=== PATIENT | female | born 1970 | race Caucasian/White ===

== ENCOUNTER → 2020-06-27 11:52 | Outpatient (CLI) | payer BC, SELFPAY ==
--- NOTE | 2020-06-27 12:02 | XR_ITS ---
PROCEDURE: XR SCOLIOSIS SURVEY CLINICAL INDICATION: SCOLIOSIS COMPARISON: No exams were available for comparison FINDINGS: There is a mid to lower thoracic scoliosis convex right measuring 15 degrees by the Hopper technique. There is minimal lumbar curvature convex left measuring five degrees by the Hopper technique. No congenital anomalies evident. IMPRESSION: Mild thoracolumbar scoliosis as described above Dictated by: Marlon Perry MD 06/27/2020 17:08 Marlon Perry MD in [place] 06/27/2020 17:08
== END ==
PROVIDERS: PCP Family Medicine; Visit Provider Nurse Practitioner Family
DX: M41.20 Other idiopathic scoliosis, site unspecified (principal)
CPT/HCPCS: 72081

== ENCOUNTER → 2022-03-02 09:43 | Outpatient (CLI) | payer BC, SELFPAY ==
[2022-03-02 11:08] LABS: Thyroid Stimulating Hormone 2.69 uIU/mL (0.465-4.68)
[2022-03-03 13:10] LABS: FSH 6.6 mIU/mL (.); Prolactin 10.3 ng/mL (4.8-23.3); Testosterone,Total 3 ng/dL (4-50)
[2022-03-09 18:09] LABS: 1,25 Dihydroxy Vitamin D 31 pg/mL (.); 1,25-Dihydroxy, Vitamin D-2 <10 pg/mL (.); 1,25-Dihydroxy, Vitamin D-3 31 pg/mL (.)
== END ==
PROVIDERS: PCP Family Medicine; Visit Provider Obstetrics & Gynecology
DX: N95.1 Menopausal and female climacteric states (principal)
CPT/HCPCS: 36415; 82652; 82670; 83001; 84146; 84403; 84443

== ENCOUNTER 2025-03-11 09:05 | Outpatient (CLI) | payer BC, SELFPAY ==
--- OUTSIDE RECORDS SUMMARY | 2025-03-11 09:22 | XMS_ITS | Encounter Summary ---
Author Organization [employer] Address [address] [place] [address] Care Team Providers Care Algebra Teacher Name Role Phone Unavailable Primary Care Provider Unavailabl e Encounter Details Date Type Department Care Team (Late st Contact Info) Description 04/29/2021 Transcribed Document [facility] [place] Family Medicine [facility] [place] [address] ProviderLatisha MD [address] [place] [address] Social History Tobacco Use Types Packs/Day Years Used Date Smoking Tobacco: Never Assessed Comments Unknown Sex and Gender Information Value Date Recorded Sex Assigned at Not on file Legal Sex Female 5:30 PM CDT Gender Identity Not on file Sexual Orientation Not on file documented as of this encounter Miscellaneous Notes * Cerner Conversion Note - Latisha ProviderMD - 04/29/2021 11:08 AM CDT Pain Assessment Entered On: 04/29/2021 13:07 EDT Performed On: 04/29/2021 12:31 EDT by MICHAEL BENNETT RN Intervention Information: acetaminophen Performed by AP BLACKWELL RN on 04/29/2021 11:31:00 EDT acetaminophen,650mg Oral Pain Assessment Pain Assessment : Follow-up assessment Pain Scale Goal : 5 Pain Scale Used : 0-10 Scale Location : Back, lower, Eye, left Pain Improved by Intervention : Yes MICHAEL BENNETT RN - 04/29/2021 13:07 EDT Pain Scale Intensity : 6 MICHAEL BENNETT RN - 04/29/2021 13:07 EDT Image 4 - Images currently included in the form version of this document have not been included in the text rendition version of the form. documented in this encounter Plan of Treatment Not on file documented as of this encounter Visit Diagnoses Not on filedocumented in this encounter
--- OUTSIDE RECORDS SUMMARY | 2025-03-11 09:22 | XMS_ITS | Encounter Summary ---
Author Organization [employer] Address [address] [place] [address] Care Team Providers Care Applications Sales Consultant Name Role Phone Unavailable Primary Care Provider Unavailabl e Encounter Details Date Type Department Care Team (Late st Contact Info) Description 04/29/2021 Transcribed Document [facility] [place] Family Medicine [facility] [place] [address] ProviderLatisha MD [address] [place] [address] Social History Tobacco Use Types Packs/Day Years Used Date Smoking Tobacco: Never Assessed Comments Unknown Sex and Gender Information Value Date Recorded Sex Assigned at Not on file Legal Sex Female 5:30 PM CDT Gender Identity Not on file Sexual Orientation Not on file documented as of this encounter Miscellaneous Notes * Cerner Conversion Note - Latisha ProviderMD - 04/29/2021 6:47 AM CDT Admission History, Adult Entered On: 04/29/2021 12:50 EDT Performed On: 04/29/2021 6:47 EDT by MARIANNE ALFONSO RN Advance Directive Patient has Advance Directive *Q : No, patient refuses Advance Directive information MARIANNE ALFONSO RN - 04/29/2021 12:46 EDT Anesthesia/Transfusion History Family History of Anesthesia Reaction : No prior transfusion(s) Blood Transfusion Acceptable to Patient : Yes Transfusion History : Prior anesthesia without reaction Family History of Anesthesia Reaction : None Anesthesia History Comment : Dysphagia MARIANNE ALFONSO RN - 04/29/2021 12:46 EDT Anticipated Discharge Needs Discharge To, Anticipated : Home Anticipated Discharge Needs at This Time : Outpatient follow-up, Physical Therapy MARIANNE ALFONSO RN - 04/29/2021 12:46 EDT Education Topics, Admission Orientation DCP GENERIC CODE Assessment/Vital Signs : Verbalizes understanding Bed Control : Verbalizes understanding Call Light : Verbalizes understanding Confidentiality : Verbalizes understanding Diet/Room Service : Verbalizes understanding Fall Prevention : Verbalizes understanding Orientation to Room/Bathroom : Verbalizes understanding Rounding : Verbalizes understanding Siderails use/risks : Verbalizes understanding Television/Phone : Verbalizes understanding MARIANNE ALFONSO RN - 04/29/2021 12:46 EDT Functional Assessment Living Situation : Home Patient Lives With : Spouse Persons Assisting Patient at Home : Unknown Mobility Assistance Prior to Admission : Independent QUIÑONEZ Hx Falls Immediate/Within 3 Months : No Current Home Treatments : None MARIANNE ALFONSO RN - 04/29/2021 12:46 EDT General Info Legal Guardian : Spouse Support Person/Patient Pedicurist : Yes Support Person/Pt Rep Name : Hector Bernardo - Support Person/Pt Rep Contact Information : [phone] Want Family/Rep/Phys Notified of Admit : No Emergency Contact #1 : Hector Bernardo Emergency Contact #1 Emergency Contact #1 Relationship : Emergency Contact #2 : ` Emergency Contact #2 Phone Number : ` Emergency Contact #2 Relationship : ` Information Obtained From : Patient Primary Language : Central African Communication Barrier : None Detail Supervisor Needed : No MARIANNE ALFONSO RN - 04/29/2021 12:46 EDT Fall Risk Scales ABCs Fall Injury Risk Identification : Surgery ABC Fall Injury Risk : Moderate to high injury risk Injury Moderate to High Risk Interventions : High Risk for Fall Injury sign in place per policy QUIÑONEZ Hx Falls Immediate/Within 3 Months : No Quiñonez Secondary Diagnosis : Yes QUIÑONEZ Use of Ambulatory Aid : Bed rest/Nurse assist QUIÑONEZ IV Therapy or IV Access : Yes Quiñonez Gait/Transferring : Weak Quiñonez Mental Status : Oriented to own ability Quiñonez Fall Risk Score : 45 QUIÑONEZ Fall Scale Risk Level : 25-45 Medium Risk [place] Fall Interventions : Adequate lighting, Assistive devices within reach, Bed in low position, Call device within reach, Frequent orientation to call device, Frequent orientation to surroundings, Hourly comfort/safety rounds, Non-slip footwear, Personal items within reach, Reinforced to call for assistance before getting out of bed, Room free of clutter/spills, Upper side-rails up, Wheels locked, Wires/Cords secured Fall Moderate to High Risk Interventions : High Risk for Fall sign in place per policy Fall Risk Scale Calc Temp : 1 MARIANNE ALFONSO RN - 04/29/2021 12:46 EDT Health Histories Smoking Status : Former smoker, quit more than 30 days ago Smokeless Tobacco Status : Never Implant/Device Type, Charge Auditor and Model : hardware in neck MARIANNE ALFONSO RN - 04/29/2021 12:46 EDT Social History (As Of: 04/29/2021 12:50:12 EDT) Tobacco: Former smoker, quit more than 30 days ago Smoking Status. Never Smokeless Tobacco Status. None Smokeless Tobacco Use History. Last Used: quit about 15 years ago . Second Hand Smoke Exposure: No. (Last Updated: 04/24/2021 15:30:11 EDT by Charanjit Brandt Rn) Alcohol: Alcohol Use History Yes. Use in Last 12 Months: Yes. Alcohol Use Comment maybe three times a year . (Last Updated: 04/24/2021 15:30:11 EDT by Charanjit Brandt Rn) Substance Abuse: Drug Use Hx: No. Use in Last 12 Months: No. (Last Updated: 04/24/2021 15:30:11 EDT by Charanjit Brandt Rn) Height and Weight, Clinical Dosing Height Source : Measured Height Entry Format : [place] Height, Feet : 5 ft(Converted to: 152 cm, 60 Inch) Height, Inches : 6 Inch(Converted to: 0 ft 6 Inch, 15.24 cm) Clinical Height : 167.64 cm Weight Source : Standing scale Weight Entry Format : [place] Clinical Dosing Weight : 79.09 kg Weight, Pounds : 174 lb Body Surface Area (BSA) : 1.89 m2 Body Mass Index : 28.1 kg/m2 (HI) [place] Body Weight : 59 kg MARIANNE ALFONSO RN - 04/29/2021 12:46 EDT Infectious Disease History Has the patient ever been tested for COVID-19? : No, Screening today for COVID-19 Date of COVID-19 test known? : Yes Date of COVID-19 Test : 04/27/2021 EDT Does patient have symptoms of COVID-19? : No COVID19 Screening : No Experiencing Infectious Disease Symptoms : No symptoms Physical contact outside [place] in the last 30 days : No Infectious Disease History : Chicken pox/Shingles, MRSA Tuberculosis Symptoms : None MARIANNE ALFONSO RN - 04/29/2021 12:46 EDT Tetanus Immunization Status Previous Tetanus Immunizations : No qualifying data available. Tetanus Immunization : Greater than 5 years MARIANNE ALFONSO RN - 04/29/2021 12:46 EDT Influenza Vaccine Asmt, Adult Previous Vaccines from Immunization Schedule : No qualifying data available. Influenza Immunization, Current Season : Outside of influenza season MARIANNE ALFONSO RN - 04/29/2021 12:46 EDT Pneumococcal Vaccine Previous Vaccines from Immunization Schedule : No qualifying data available. Pneumonia Immunization Received : No Pneumococcal Risk Assessment < Age 65 : None MARIANNE ALFONSO RN - 04/29/2021 12:46 EDT Order Details Transport Mode Order Detail : Wheelchair Isolation Precautions Order Detail : Standard Precautions Order Detail : 0 IV Order Detail : 1 Oxygen Order Detail : 0 Nurse Collect Order Detail : 0 Lift/Transfer : Moderate assist Central Line Order Detail : No Room Service : Appropriate Arterial Line : No Patient Needs Meds Crushed/Liquid : No MARIANNE ALFONSO RN - 04/29/2021 12:46 EDT Nutrition History Feeding Ability : Independent Adaptive Feeding Equipment : Other: No seeds, nuts or hulls Oral Medication Administration : By mouth Eating Poorly Due to Decreased Appetite : No Unplanned Weight Loss in Past 3-6 Months : No Malnutrition Screening Tool Total(mal) : 0 Malnutrition Screening Tool Risk Level : Patient not at risk MARIANNE ALFONSO RN - 04/29/2021 12:46 EDT [place] Suicide Severity Rating Scale (C-SSRS) CSSRS Past Month Wish to be : No CSSRS Past Month Suicidal Thoughts : No CSSRS Lifetime Suicide Behavior : No Suicide Severity Rating Score : 0 Suicide Severity Rating : No Additional Care Required at this time MARIANNE ALFONSO RN - 04/29/2021 12:46 EDT Psychosocial History Currently in Unsafe Situation : No MARIANNE ALFONSO RN - 04/29/2021 12:46 EDT Sleep Apnea Risk Assmt Hx of Obstructive Sleep Apnea Diagnosis : No Snore Loudly : No Tired, Fatigued, or Sleepy During Day : Yes Observed Stopping Breathing During Sleep : No Have/Are Being Treated for Hypertension : No BMI Greater Than 35 kg/m2 : No Age over 50 Years Old : No Neck Circumference Greater Than 40 cm : No Gender Male : No STOP-BANG Sleep Apnea Risk Level Score : 1 MARIANNE ALFONSO RN - 04/29/2021 12:46 EDT Spiritual/Cultural Needs Any Spiritual/Cultural Needs or Requests : Yes Spiritual/Cultural Needs Comment : 04/29 Jew Preference : Faith Spiritual/Cultural Needs Comment : 04/29 MARIANNE ALFONSO RN - 04/29/2021 12:46 EDT Valuables and Belongings Valuables and Belongings : Clothing, Personal devices, Personal items Clothing : Common streetwear Clothing Disposition : With patient Personal Device Disposition : With patient Personal Devices : Dentures, upper Personal Items : Cell phone Personal Items Disposition : With patient MARIANNE ALFONSO RN - 04/29/2021 12:46 EDT documented in this encounter Plan of Treatment Not on file documented as of this encounter Visit Diagnoses Not on filedocumented in this encounter
--- OUTSIDE RECORDS SUMMARY | 2025-03-11 09:22 | XMS_ITS | Encounter Summary ---
Author Organization [employer] Address [address] [place] [address] Care Team Providers Care Conservation Technician Name Role Phone Unavailable Primary Care Provider Unavailabl e Encounter Details Date Type Department Care Team (Late st Contact Info) Description 04/30/2021 Transcribed Document [facility] Radiology [address] [place] [address] Jancie Pan MD [address] [address] Social History Tobacco Use Types Packs/Day Years Used Date Smoking Tobacco: Never Assessed Comments Unknown Sex and Gender Information Value Date Recorded Sex Assigned at Not on file Legal Sex Female 5:30 PM CDT Gender Identity Not on file Sexual Orientation Not on file documented as of this encounter Miscellaneous Notes * Cerner Conversion Note - Janice Pan MD - 04/30/2021 10:08 AM EDT Patient: ESTER GALVAN Age: 51 years Sex: Female : 1970 Associated Diagnoses: None Author: FRANCESCA FUENTES PA-FAM CC: postop medical management S: pt states that she had fever last night. But there is not one documented on the monitor and nsg is unaware of any fevers. Pt has at most had 99.6. per the monitor. Using incentive spirometer. Denies any f/c/s. Some nausea. No vomiting or sputum. No cough or sputum. +flatus. urinating ok. HPI: 51 YO female with spinal stenosis who presented to [facility] for lumbar fusion by Dr. Clemons. Pt has failed outpt conservative therapy and elected for surgical intervention. We are asked to follow for postop medical management. Initial visit on floor --- Denies prior stroke or seizure. Denies IL, CHF or cardiac arrhythmia. Denies DM. Denies COPD or [place]. Denies DVT or PE. Denies h/o cancer. Denies any bladder issues. +anxiety, arthritis. Has hx of asthma, last had to use inhaler 3 weeks ago after working in the yard. Has GERD and UC colitis issues. Recently had perianal wound and was treated with oral abx and is now better. She is having some pain and irritation with left eye at this time PMHx: Active Problems (8) Anxiety Arthritis Asthma Back pain Migraine PFO (patent foramen ovale) Scoliosis Ulcerative colitis PSHx: Tubal ligation ([id number]). Cholecystectomy ([id number]). uterine ablation. neck surgery FHx: Mother - CVA, pancreatic cancer Father - tetrology of Fallot Siblings - sister with Hashimotos SHx: No alcohol, tob or illicit drug use. Home Medications (17) Active acetaminophen-HYDROcodone 325 mg-10 mg oral tablet albuterol CFC free 90 mcg/inh inhalation aerosol with adapter ALPRAZolam 0.25 mg oral tablet 0.25 mg = 1 Tab, PRN, Oral, TID balsalazide 750 mg oral capsule 3,750 mg = 5 Cap, Oral, QAM balsalazide 750 mg oral capsule 3,000 mg = 4 Cap, Oral, At Bedtime Bentyl 20 mg, PRN, Oral, QID bisoprolol 5 mg oral tablet 2.5 mg = 0.5 Tab, Oral, Daily Calcium, Magnesium and Zinc oral tablet 1 Tab, Oral, Daily clopidogrel 75 mg oral tablet 75 mg = 1 Tab, Oral, Daily Dulcolax Stool Softener 100 mg, PRN, Oral, BID EPINEPHrine 0.3 mg injectable kit gabapentin 100 mg oral capsule [place] 10 mg-325 mg oral tablet 1 Tab, PRN, Oral, Q6H [place] 7.5 mg-325 mg oral tablet 1 Tab, PRN, Oral, Q4H PriLOSEC 20 mg, Oral, BID Robaxin 500 mg oral tablet 500 mg = 1 Tab, PRN, Oral, QID Vitamin C 1,000 mg, Oral, Daily Allergies (9) Active Reaction Advil Anaphylaxis Bee Stings Anaphylaxis NSAIDs Anaphylaxis Flagyl Lip Swelling morphine Nausea and vomiting Peanuts Joint pain Seafood Joint swelling Strawberries Sinus drainage Tequin Migraine PE: Vitals Signs (last 24 hrs) Last Charted Minimum Maximum Temp 98.2 (APR 30 05:03) 97.7 (APR 29 12:23) 99.5 (APR 29 10:45) Mon HR 95 (APR 30 05:03) 60 (APR 29 11:30) 102 (APR 29 18:00) Resp Rate 16 (APR 30 05:03) 14 (APR 29 10:45) 20 (APR 29 11:10) SBP 94 (APR 30 05:03) 94 (APR 30 05:03) 132 (APR 29 10:50) DBP L 56 (APR 30 05:03) L 55 (APR 29 11:10) 87 (APR 29 10:50) MAP 69 (APR 30 05:03) 69 (APR 30 05:03) 99 (APR 29 10:50) SpO2 100 (APR 30 05:03) L 92 (APR 30 00:25) 100 (APR 29 10:45) GEN: Alert, awake, NAD; sitting up in chair. Does appear to be hurting. CV: S1S2, no murmur. No LE edema Resp: CTAB, NL Abd: Soft, NT, ND +BS Skin: no rashes on inspection and palpation. Ext: No LE edema. No joint edema, erythema. Neuro: A&O x 3 Data: Labs (Last four charted values) WBC 10.0 (APR 30) 6.7 (APR 27) HB L 11.1 (APR 30) 12.6 (APR 27) HCT 35.2 (APR 30) 38.9 (APR 27) Plt 210 (APR 30) 240 (APR 27) Na 136 (APR 30) 137 (APR 27) K 4.2 (APR 30) 4.3 (APR 27) Cl 105 (APR 30) 105 (APR 27) CO2 26 (APR 30) 28 (APR 27) BUN 9 (APR 30) 10 (APR 27) Cr 0.80 (APR 30) 0.90 (APR 27) Glu R 101 (APR 30) 100 (APR 27) Ca 9.0 (APR 30) 9.2 (APR 27) ECHO --- 2018 -- EF 60% Assessment: spondylolisthesis s/p lumbar fusion left eye pain, likely corneal abrasion UC GERD asthma Plan: tetracaine ophth solution -- erythromycin ophth oint x 3 days Monitor BP; add PRN's, hold parameters bowel regimen incentive spirometer PT/OT DVT prophylaxis noted Pain management deferred to surgeon will monitor hb/hct daily for signs of ongoing acute blood loss will monitor bun/cr daily for signs of dehydration, prerenal azotemia will monitor for signs/symptoms of post-op wound infection or hospital acquired infectious process resume outpatient medication regimen for comorbidities Assessment and treatment plan made in conjunction with James Pan MD documented in this encounter Plan of Treatment Not on file documented as of this encounter Visit Diagnoses Not on filedocumented in this encounter
--- OUTSIDE RECORDS SUMMARY | 2025-03-11 09:22 | XMS_ITS | Encounter Summary ---
Author Organization [employer] Address [address] [place] [address] Care Team Providers Care Excavation Laborer Name Role Phone Unavailable Primary Care Provider Unavailabl e Encounter Details Date Type Department Care Team (Late st Contact Info) Description 04/29/2021 Transcribed Document [facility] [place] Family Medicine [facility] [place] [address] ProviderLatisha MD [address] [place] [address] Social History Tobacco Use Types Packs/Day Years Used Date Smoking Tobacco: Never Assessed Comments Unknown Sex and Gender Information Value Date Recorded Sex Assigned at Not on file Legal Sex Female 5:30 PM CDT Gender Identity Not on file Sexual Orientation Not on file documented as of this encounter Miscellaneous Notes * Cerner Conversion Note - Latisha ProviderMD - 04/29/2021 3:48 PM CDT Treatment Intervention, OT Entered On: 04/30/2021 15:01 EDT Performed On: 04/30/2021 9:38 EDT by KIM STEPHENS OTR/Michelle General Information, OT Visit Type, OT : Treatment Note Patient Orders : Order Date Order Ordering 04/29/2021 11:04 Occupational Therapy Evaluation and Treatme Ordered By: JAMI ISLAS MD-SNU 04/29/2021 15:48 OT Additional Treatment Ordered By: Active Diagnoses : No Qualifying Diagnoses Therapy Diagnosis, OT : decreased independence with ADLs due to weakness Admission Date : 04/29/2021 06:48 Co-treated by, OT : Physical Therapist Personal Devices : Personal Devices Dentures, upper Assistive Devices : Assistive Devices No Devices Recorded KIM STEPHENS OTR/Michelle - 04/30/2021 14:59 EDT General Status Patient Received Status : Up in chair Treatment Start Time : 04/30/2021 9:00 EDT Patient Left Status : Up in chair, RN/PCT informed, Family/Visitors at bedside, All needs met and within reach Treatment End Time : 04/30/2021 9:32 EDT Treatment Time : 32 Minute(s) KIM STEPHENS OTR/L - 04/30/2021 14:59 EDT Self Care/Home Management, OT Upper Body Dressing Assist Level, OT : Supervision or set-up Lower Body Dressing Assist Level, OT : Supervision or set-up KIM STEPHENS OTR/L - 04/30/2021 14:59 EDT Functional Mobility Mobility Grid Sit to Stand : Supervision/set-up Bed to Chair : Supervision/set-up Stand to Sit : Supervision/set-up KIM STEPHENS OTR/Michelle - 04/30/2021 14:59 EDT Plan of Care, OT OT Tx Plan/Goals Established w Patient : Yes KIM STEPHENS OTR/L - 04/30/2021 14:59 EDT Fci Goals, OT Grooming LTG Grid Goal #1 Activity : Grooming Assist : Independent, modified Date to Meet : 05/13/2021 EDT Goal Status : Initial goal KIM STEPHENS OTR/L - 04/30/2021 14:59 EDT Bathing LTG Grid Goal #1 Activity : Bathing Assist : Independent, modified Date to Meet : 05/13/2021 EDT Goal Status : Initial goal KIM STEPHENS OTR/L - 04/30/2021 14:59 EDT Dressing, Lower Body LTG Grid Goal #1 Activity : Dressing, Lower Body Assist : Independent, modified Date to Meet : 05/13/2021 EDT Goal Status : Initial goal KIM STEPHENS OTR/L - 04/30/2021 14:59 EDT Toileting LTG Grid Goal #1 Activity : Toileting Assist : Independent, modified Date to Meet : 05/13/2021 EDT Goal Status : Initial goal KIM STEPHENS OTR/L - 04/30/2021 14:59 EDT Toilet Transfer LTG Grid Goal #1 Activity : Toilet Transfer, Ambulatory Assist : Independent, modified Date to Meet : 05/13/2021 EDT Goal Status : Initial goal KIM STEPHENS OTR/Michelle - 04/30/2021 14:59 EDT Bed Mobility/ Bed Transfer LTG Grid Goal #1 Activity : Bed Mobility/Bed Transfer Assist : Independent, modified Date to Meet : 05/13/2021 EDT Goal Status : Initial goal KIM STEPHENS OTR/L - 04/30/2021 14:59 EDT Treatment Note Subjective Comment : Pt agreeable Patient's Response to Treatment : Pt tolerated tx well Additional Objective Information : Pt sitting in chair upon arrival. Pt completed UB and LB dressing with SBA using AE, pt verbalized understanding of use. Pt ambulated in room and hallway with SBA using RWx. Pt returned to room, left with needs met and CL in reach. Assessment : Pt progressing Plan for Treatment : Cont OT POC KIM STEPHENS OTR/L - 04/30/2021 14:59 EDT Pain Assessment Pain Score Pre-Intervention : 0 KIM STEPHENS OTR/L - 04/30/2021 14:59 EDT Image 1 - Images currently included in the form version of this document have not been included in the text rendition version of the form. [facility] OT Charges OT Selfcare/Hm Mgmt Ea 15 Min : 1 OT Ther Activities Ea 15 Min : 1 KIM STEPHENS OTR/L - 04/30/2021 14:59 EDT Electronically signed by Brendon Givens Conversion Communications Superintendent Cerner at 01/04/2023 12:57 PM CDT documented in this encounter Plan of Treatment Not on file documented as of this encounter Visit Diagnoses Not on filedocumented in this encounter
--- OUTSIDE RECORDS SUMMARY | 2025-03-11 09:22 | XMS_ITS | Referral Summary ---
Author Organization [employer] Address [address] [place], [place] [id number] Care Team Providers Care Fender Mechanic Apprentice Name Role Phone Unavailable Primary Care Provider Unavailabl e Social History Tobacco Use Types Packs/Day Years Used Date Smoking Tobacco: Never Assessed Comments Unknown Sex and Gender Information Value Date Recorded Sex Assigned at Not on file Legal Sex Female 5:30 PM CDT Gender Identity Not on file Sexual Orientation Not on file Plan of Treatment Not on file
--- OUTSIDE RECORDS SUMMARY | 2025-03-11 09:22 | XMS_ITS | Encounter Summary ---
Author Organization [employer] Address [address] [place] [address] Care Team Providers Care Insurance Account Specialist Name Role Phone Unavailable Primary Care Provider Unavailabl e Encounter Details Date Type Department Care Team (Late st Contact Info) Description 04/29/2021 Transcribed Document [facility] [place] Family Medicine [address] [place] [address] ProviderLatisha MD [address] [place] [address] Social History Tobacco Use Types Packs/Day Years Used Date Smoking Tobacco: Never Assessed Comments Unknown Sex and Gender Information Value Date Recorded Sex Assigned at Not on file Legal Sex Female 5:30 PM CDT Gender Identity Not on file Sexual Orientation Not on file documented as of this encounter Miscellaneous Notes * Cerner Conversion Note - Historical ProviderMD - 04/29/2021 5:00 PM CDT Chart Check - Review Order Profile Entered On: 04/29/2021 17:17 EDT Performed On: 04/29/2021 17:00 EDT by MICHAEL BENNETT RN Chart Check [employer] Initiated/Discontinued as Appropriate : Not applicable All Active Orders Reviewed : Yes MICHAEL BENNETT RN - 04/29/2021 17:17 EDT documented in this encounter Plan of Treatment Not on file documented as of this encounter Visit Diagnoses Not on filedocumented in this encounter
--- OUTSIDE RECORDS SUMMARY | 2025-03-11 09:22 | XMS_ITS | Encounter Summary ---
Author Organization [employer] [facility] Address [address] [place] [id number] Care Team Providers Care Human Resources Mgr Name Role Phone Unavailable Primary Care Provider Unavailabl e Encounter Details Date Type Department Care Team (Late st Contact Info) Description 04/30/2021 Transcribed Document [facility] [place] Family Medicine [address] [place] [address] ProviderLatisha MD [address] [place] [address] Social History Tobacco Use Types Packs/Day Years Used Date Smoking Tobacco: Never Assessed Comments Unknown Sex and Gender Information Value Date Recorded Sex Assigned at Not on file Legal Sex Female 5:30 PM CDT Gender Identity Not on file Sexual Orientation Not on file documented as of this encounter Miscellaneous Notes * Cerner Conversion Note - Latisha ProviderMD - 04/30/2021 9:06 AM CDT Stroke/Warfarin Instructions Entered On: 04/30/2021 9:06 EDT Performed On: 04/30/2021 9:06 EDT by MICHAEL BENNETT RN Stroke/Warfarin Instructions Stroke/TIA Discharge Ins : N/A Warfarin Discharge Ins : N/A MICHAEL BENNETT RN - 04/30/2021 9:06 EDT documented in this encounter Plan of Treatment Not on file documented as of this encounter Visit Diagnoses Not on filedocumented in this encounter
--- OUTSIDE RECORDS SUMMARY | 2025-03-11 09:22 | XMS_ITS | Encounter Summary ---
Author Organization [employer] [facility] Address [address] [place] [address] Care Team Providers Care Workers Compensation Paralegal Name Role Phone Unavailable Primary Care Provider Unavailabl e Encounter Details Date Type Department Care Team (Late st Contact Info) Description 04/30/2021 Transcribed Document [facility] [place] Family Medicine Count includes the [facility] [address] ProviderLatisha MD [address] [place] [address] Social History Tobacco Use Types Packs/Day Years Used Date Smoking Tobacco: Never Assessed Comments Unknown Sex and Gender Information Value Date Recorded Sex Assigned at Not on file Legal Sex Female 5:30 PM CDT Gender Identity Not on file Sexual Orientation Not on file documented as of this encounter Miscellaneous Notes * Cerner Conversion Note - Latisha Daugherty MD - 04/30/2021 9:07 AM CDT Patient Education Materials Follows: Laminectomy, Care After This sheet gives you information about how to care for yourself after your procedure. Your health care provider may also give you more specific instructions. If you have problems or questions, contact your health care provider. What can I expect after the procedure? After the procedure, it is common to have: ??? Some pain around your incision area. ??? Muscle tightening (spasms) across the back. Follow these instructions at home: Medicines ??? Take oqwr-htf-vsbvqxo and prescription medicines only as told by your health care provider. ??? If you were prescribed an antibiotic medicine, use it as told by your health care provider. Do not stop using the antibiotic even if you start to feel better. ??? If you are taking blood thinners: ? Talk with your health care provider before you take any medicines that contain aspirin or NSAIDs, such as ibuprofen. These medicines increase your risk for dangerous bleeding. ? Take your medicine exactly as told, at the same time every day. ? Avoid activities that could cause injury or bruising, and follow instructions about how to prevent falls. ? Wear a medical alert bracelet or carry a card that lists what medicines you take. ??? Ask your health care provider if the medicine prescribed to you: ? Requires you to avoid driving or using heavy machinery. ? Can cause constipation. You may need to take these actions to prevent or treat constipation: ? Drink enough fluid to keep your urine pale yellow. ? Take ztib-beq-lspgpwm or prescription medicines. ? Eat foods that are high in fiber, such as beans, whole grains, and fresh fruits and vegetables. ? Limit foods that are high in fat and processed sugars, such as fried or sweet foods. ? Do not drink alcohol if you are taking prescription pain medicine. Incision care ??? Follow instructions from your health care provider about how to take care of your incision area. Make sure you: ? Wash your hands with soap and water before and after you apply medicine to the area or change your bandage (dressing). If soap and water are not available, use hand geothermal sheet metal worker. ? Change your dressing as told by your health care provider. ? Leave stitches (sutures), skin glue, or adhesive strips in place. These skin closures may need to stay in place for 2 weeks or longer. If adhesive strip edges start to loosen and curl up, you may trim the loose edges. Do not remove adhesive strips completely unless your health care provider tells you to do that. ??? Check your incision area every day for signs of infection. Check for: ? More redness, swelling, or pain. ? Fluid or blood. ? Warmth. ? Pus or a bad smell. Activity ??? Rest as told by your health care provider. ??? Avoid bending or twisting at your waist. Always bend at your knees. ??? Avoid sitting for a long time without moving. Get up to take short walks every 1?2 hours. This is important to improve blood flow and breathing. Ask for help if you feel weak or unsteady. ??? Do not lift anything that is heavier than 10 lb (4.5 kg) or the limit that your health care provider tells you, until he or she says that it is safe. ??? Do exercises as told by your health care provider, including breathing exercises. ??? Return to your normal activities as told by your health care provider. Ask your health care provider what activities are safe for you. General instructions ??? Do not drive for 2 weeks after your procedure or for as long as told by your health care provider. ??? Do not take baths, swim, or use a hot tub for 2 weeks, or until your incision has healed completely. Ask your health care provider if you may take showers after your dressing has been removed. You may only be allowed to take sponge baths. ??? Do not use any products that contain nicotine or tobacco, such as cigarettes, e-cigarettes, and chewing tobacco. These can delay bone healing after surgery. If you need help quitting, ask your health care provider. ??? Wear compression stockings as told by your health care provider. These stockings help to prevent blood clots and reduce swelling in your legs. ??? Keep all follow-up visits as told by your health care provider. This is important. Contact a health care provider if: ??? You have more redness, swelling, or pain around your incision area. ??? Your incision feels warm to the touch. ??? You are not able to return to activities or do exercises as told by your health care provider. Get help right away if you: ??? Have any of these signs of infection: ? Fluid or blood coming from your incision area. ? Pus or a bad smell coming from your incision area. ? Chills or a fever. ??? Feel dizzy or you faint while standing. ??? Develop a rash. ??? Develop shortness of breath or you have difficulty breathing. ??? Cannot control when you urinate or have a bowel movement. ??? Become weak. ??? Are not able to use your legs. These symptoms may represent a serious problem that is an emergency. Do not wait to see if the symptoms will go away. Get medical help right away. Call your local emergency services (911 in the [place] Do not drive yourself to the hospital. Summary ??? After the procedure, it is common to have some pain around your incision area. You may also have muscle tightening (spasms) across the back. ??? Follow instructions from your health care provider about how to care for your incision area. ??? Do not lift anything that is heavier than 10 lb (4.5 kg) or the limit that your health care provider tells you, until he or she says that it is safe. ??? Contact your health care provider if you have more redness, swelling, or pain around your incision area or if your incision feels warm to the touch. These can be signs of infection. This information is not intended to replace advice given to you by your health care provider. Make sure you discuss any questions you have with your health care provider. Document Revised: 03/31/2020 Document Reviewed: 03/31/2020 [employer] Patient Education ? 2020 [employer]. Laminectomy Laminectomy is a surgery to remove: ??? Lamina. These are small flat pieces of bone in the spine. ??? Ligaments. These tough, cord-like tissues connect bones to each other underneath the lamina. The ligaments connect vertebrae, which are the bones in the spine. ??? Facet joints. These are the connections between the bones of the spine. The surgery is done to reduce pressure on nerves and the spinal cord, and to lessen pain, numbness, and discomfort. You may need this procedure if you have narrowing of the spinal canal (spinal stenosis) or if you have a spinal tumor, spinal injury, or Paget disease of bone. Tell a health care provider about: ??? Any allergies you have. ??? All medicines you are taking, including vitamins, herbs, eye drops, creams, and urph-kvp-givtmwd medicines. ??? Any problems you or family members have had with anesthetic medicines. ??? Any blood disorders you have. ??? Any surgeries you have had. ??? Any medical conditions you have, including a cold or any infections. ??? Whether you are or may be . What are the risks? Generally, this is a safe procedure. However, problems may occur, including: ??? Infection. ??? Bleeding. ??? Allergic reactions to medicines or dyes. ??? Damage to nearby structures or organs, such as nerves. Nerve damage can cause pain, weakness, or numbness. ??? Leaking of spinal fluid. ??? A blood clot in a leg. The clot can move to the lungs, which can be very serious. ??? Inability to control when you urinate or have bowel movements (incontinence). This is rare. What happens before the procedure? Staying hydrated Follow instructions from your health care provider about hydration, which may include: ??? Up to 2 hours before the procedure ? you may continue to drink clear liquids, such as water, clear fruit juice, black coffee, and plain tea. Eating and drinking restrictions Follow instructions from your health care provider about eating and drinking, which may include: ??? 24 hours before the procedure ? stop drinking alcohol. ??? 8 hours before the procedure ? stop eating heavy meals or foods, such as meat, fried foods, or fatty foods. ??? 6 hours before the procedure ? stop eating light meals or foods, such as toast or cereal. ??? 6 hours before the procedure ? stop drinking milk or drinks that contain milk. ??? 2 hours before the procedure ? stop drinking clear liquids. Medicines ??? Ask your health care provider about: ? Changing or stopping your regular medicines. This is especially important if you are taking diabetes medicines or blood thinners. If your health care provider asks you to keep taking some medicines, take them with a sip of water. ? Taking medicines such as aspirin and ibuprofen. These medicines can thin your blood. Do not take these medicines unless your health care provider tells you to take them. ? Taking igwu-pvb-jxltktg medicines, vitamins, herbs, and supplements. Tests ??? You may have an exam or testing, including an electrocardiogram (ECG). ??? You may have a blood or urine sample taken. General instructions ??? Do not use any products that contain nicotine or tobacco for at least 4 weeks before the procedure. These products include cigarettes, e-cigarettes, and chewing tobacco. If you need help quitting, ask your health care provider. ??? Ask your health care provider: ? How your surgery site will be marked. ? What steps will be taken to help prevent infection. These may include: ? Removing hair at the surgery site. ? Washing skin with a germ-killing soap. ? Taking antibiotic medicine. ??? Plan to have someone take you home from the hospital or clinic. ??? Plan to have a responsible adult care for you for at least 24 hours after you leave the hospital or clinic. You may need help at home for the first week after the procedure. This is important. What happens during the procedure? An IV will be inserted into one of your veins. ??? You will be given one or more of the following: ? A medicine to help you relax (sedative). ? A medicine to make you fall asleep (general anesthetic). ??? A breathing tube will be placed. ??? An incision will be made in your back. The incision may be 2?5 inches (5?13 cm) long, depending on how many vertebrae are being operated on. ??? Muscles in your back will be moved away from the vertebrae and pulled to the side. ??? Pieces of lamina will be removed. ??? Ligaments and thickened facet joints will be removed. The amount of tissue and bone removed depends on how much of the tissue is putting pressure on your nerves. ??? Your nerves will be identified and checked for too much tightness. ??? Your back muscles will be moved back into position. ??? The area under your skin will be closed with small stitches that dissolve on their own (absorbable sutures). ??? Your skin will be closed with small, absorbable sutures or mary jane. ??? A bandage (dressing) will be placed over your incision. The procedure may vary among health care providers and hospitals. What happens after the procedure? Your blood pressure, heart rate, breathing rate, and blood oxygen level will be monitored until you leave the hospital or clinic. ??? You may continue receive medicines and fluids through an IV. ??? You will have some back pain. You will be given pain medicine as needed. ??? It is important to be up and moving as soon as possible after this procedure. Physical therapists will help you start walking. ??? To prevent blood clots in your legs: ? You may have to wear compression stockings. These stockings also reduce swelling in your legs. ? You may need to take medicines. ??? You may need to do breathing exercises to help prevent lung infection. ??? You will not be able to drive for at least 2 weeks after your procedure. Summary ??? Laminectomy is a procedure that is done to reduce pressure on nerves and the spinal cord and to reduce pain, numbness, and discomfort. ??? Plan to have a responsible adult care for you for at least 24 hours after you leave the hospital or clinic. ??? You will have some back pain. You will be given pain medicine as needed. ??? It is important to be up and moving as soon as possible after this procedure. Physical therapists will help you start walking. This information is not intended to replace advice given to you by your health care provider. Make sure you discuss any questions you have with your health care provider. Document Revised: 03/31/2020 Document Reviewed: 03/31/2020 [employer] Patient Education ? 2020 [employer] documented in this encounter Plan of Treatment Not on file documented as of this encounter Visit Diagnoses Not on filedocumented in this encounter
--- OUTSIDE RECORDS SUMMARY | 2025-03-11 09:22 | XMS_ITS | Encounter Summary ---
Author Organization [employer] Address [address] [place] [address] Care Team Providers Care Build And Deployment Engineer Name Role Phone Unavailable Primary Care Provider Unavailabl e Encounter Details Date Type Department Care Team (Late st Contact Info) Description 04/29/2021 Transcribed Document [facility] [place] [address] ProviderLatisha MD [address] [place] [address] Social History Tobacco Use Types Packs/Day Years Used Date Smoking Tobacco: Never Assessed Comments Unknown Sex and Gender Information Value Date Recorded Sex Assigned at Not on file Legal Sex Female 5:30 PM CDT Gender Identity Not on file Sexual Orientation Not on file documented as of this encounter Miscellaneous Notes * Cerner Conversion Note - Latisha ProviderMD - 04/29/2021 8:52 AM CDT [facility] Main OR IntraOp Summary Primary Physician: JAMI ISLAS MD-SNU Finalized Date/Time: 05/02/21 15:35:56 Pt. Name: ESTER GALVAN SHADY /Sex: 1970 Female Med Rec #: [id number] Physician: JAMI ISLAS MD-SNU Financial #: [id number] Pt. Type: O Room/Bed: [facility]/1 Admit/Disch: 04/29/21 06:48:00 - 05/01/21 17:56:00 Institution: [facility] IntraOp Case Attendance Entry 1 Entry 2 Entry 3 Case Attendee JAMI ISLAS GHANSAH, NANA DADZIE, SIMPSON, KRISTEN, APRN, -CAITLIN MATA-ANS STRAP MACHINE OPERATOR AUTOMATIC Role Performed Surgeon/Proceduralist, Anesthesiologist of STRAP MACHINE OPERATOR AUTOMATIC/Nurse Phlebotomy Services Representative First Record Time In 04/29/21 08:05:00 04/29/21 08:05:00 04/29/21 08:05:00 Time Out 04/29/21 10:42:00 04/29/21 10:42:00 04/29/21 10:42:00 Procedure MIS Posterior Fusion CT MIS Posterior Fusion CT MIS Posterior Fusion CT Guided Guided Guided Other Attendee Superficial Wound Closed By: Last Modified By: Yaquelin Murray Rn Compton, Tracy R, Yaquelin Quiles Rn 04/29/21 10:42:51 04/29/21 10:42:51 04/29/21 10:42:51 Entry 4 Entry 5 Entry 6 Case Attendee Yaquelin Murray, Chris Butts, DAGOBERTO HOLCOMB Non [facility] Student Nurse Phlebotomy Services Representative Role Performed Engineer Exhauster, First Scrub, First Student Time In 04/29/21 08:05:00 04/29/21 08:05:00 04/29/21 08:05:00 Time Out 04/29/21 10:42:00 04/29/21 10:42:00 04/29/21 10:42:00 Procedure MIS Posterior Fusion CT MIS Posterior Fusion CT MIS Posterior Fusion CT Guided Guided Guided Other Attendee Superficial Wound Closed By: Last Modified By: Yaquelin Murray Rn Compton, Tracy R, Yaquelin Quiles Rn 04/29/21 10:42:51 04/29/21 10:42:51 04/29/21 10:42:51 Entry 7 Entry 8 Entry 9 Case Attendee ORLANDO MCKEON OTHER, ATTENDEE JERSON GUZMAN Role Performed Section Repairer Vendor Physician assistant professor of marine biology Time In 04/29/21 08:05:00 04/29/21 08:05:00 04/29/21 08:05:00 Time Out 04/29/21 10:42:00 04/29/21 10:42:00 04/29/21 10:42:00 Procedure MIS Posterior Fusion CT MIS Posterior Fusion CT MIS Posterior Fusion CT Guided Guided Guided Other Attendee LISA Manning Superficial Wound Closed By: Last Modified By: Yaquelin Murray Rn Compton, Tracy R, Yaquelin Quiles Rn 04/29/21 10:42:51 04/29/21 10:42:51 04/29/21 10:42:51 [facility] IntraOp Case Attendance Audit 04/29/21 10:42:51 Cant Hooker: [id number] Modifier: [id number] <+> Time Out 1 <*> Procedure MIS Posterior Fusion CT Guided 2 <+> Time Out 2 <*> Procedure MIS Posterior Fusion CT Guided 3 <+> Time Out 3 <*> Procedure MIS Posterior Fusion CT Guided 4 <+> Time Out 4 <*> Procedure MIS Posterior Fusion CT Guided 5 <+> Time Out 5 <*> Procedure MIS Posterior Fusion CT Guided 6 <+> Time Out 6 <*> Procedure MIS Posterior Fusion CT Guided 7 <+> Time Out 7 <*> Procedure MIS Posterior Fusion CT Guided 8 <+> Time Out 8 <*> Procedure MIS Posterior Fusion CT Guided 9 <+> Time In 9 <+> Time Out 9 <*> Procedure MIS Posterior Fusion CT Guided 04/29/21 08:47:07 Cant Hooker: [id number] Modifier: [id number] <*> Procedure MIS Posterior Fusion CT Guided 2 <*> Procedure MIS Posterior Fusion CT Guided 3 <*> Procedure MIS Posterior Fusion CT Guided 4 <*> Procedure MIS Posterior Fusion CT Guided 5 <*> Procedure MIS Posterior Fusion CT Guided 6 <*> Procedure MIS Posterior Fusion CT Guided 7 <+> Time In 7 <*> Procedure MIS Posterior Fusion CT Guided 8 <+> Time In 8 <*> Procedure MIS Posterior Fusion CT Guided <+> 9 Case Attendee <+> 9 Role Performed <+> 9 Procedure 04/29/21 08:29:09 Cant Hooker: [id number] Modifier: [id number] <+> Time In 1 <*> Procedure MIS Posterior Fusion CT Guided 2 <+> Time In 2 <*> Procedure MIS Posterior Fusion CT Guided 3 <+> Time In 3 <*> Procedure MIS Posterior Fusion CT Guided 4 <+> Time In 4 <*> Procedure MIS Posterior Fusion CT Guided 5 <+> Time In 5 <*> Procedure MIS Posterior Fusion CT Guided 6 <+> Time In 6 <*> Procedure MIS Posterior Fusion CT Guided <+> 7 Case Attendee <+> 7 Role Performed <+> 7 Procedure <+> 8 Case Attendee <+> 8 Role Performed <+> 8 Procedure <+> 8 Other Attendee 04/29/21 07:37:14 Cant Hooker: [id number] Modifier: [id number] <+> 1 Procedure 2 <*> Procedure MIS Posterior Fusion CT Guided 3 <*> Procedure MIS Posterior Fusion CT Guided 4 <*> Procedure MIS Posterior Fusion CT Guided 5 <*> Procedure MIS Posterior Fusion CT Guided 6 <*> Procedure MIS Posterior Fusion CT Guided 04/29/21 07:32:08 Cant Hooker: [id number] Modifier: [id number] <+> 6 Case Attendee <+> 6 Role Performed <+> 6 Procedure [facility] IntraOp Case Times Entry 1 Patient In Room Time 04/29/21 08:05:00 Out Room Time 04/29/21 10:42:00 Anesthesia Start Time 04/29/21 08:05:00 Stop Time 04/29/21 10:42:00 Surgery / Procedure Times Start Time 04/29/21 08:52:00 Stop Time 04/29/21 10:32:00 Last Modified By: Yaquelin Murray Rn 04/29/21 10:42:41 [facility] IntraOp Case Times Audit 04/29/21 10:42:41 Cant Hooker: [id number] Modifier: [id number] <+> 1 Out Room Time <+> 1 Stop Time <+> 1 Stop Time 04/29/21 08:57:53 Cant Hooker: [id number] Modifier: [id number] <+> 1 Start Time [facility] IntraOp Cautery Entry 1 ESU Identification Cautery Type Monopolar ESU ID Number [id number] ID Type Hospital Number Cautery Settings Cut Setting 45 Coag Setting 45 Bipolar Setting 45 ESU Grounding Pad Ground Pad Type Adult Grounding Pad Site Right thigh Grounding Pad Yaquelin Murray Rn Applied By Grounding Pad Site Warm, dry and intact Skin Condition Before Cautery Grounding Pad Site Unchanged Skin Condition After Cautery Last Modified By: Yaquelin Murray Rn 04/29/21 07:31:20 [facility] IntraOp Communication Entry 1 Communication To Family/Significant other Communication By Yaquelin Murray Rn Date and Time 04/29/21 08:58:00 Last Modified By: Yaquelin Murray Rn 04/29/21 08:58:03 [facility] IntraOp Counts Verification Entry 1 Procedure MIS Posterior Fusion CT Guided Count Info Count Type Sponge, Sharps Counts Verification Baseline/pre-procedure Sequence Count Results Not Applicable Counts Performed By Count Performed By Chris Wu, JOSEF (Scrub) Count Performed By Yaquelin Murray Rn (RN) Last Modified By: Yaquelin Murray Rn 04/29/21 07:32:22 [facility] IntraOp Counts Final Entry 1 Procedure MIS Posterior Fusion CT Guided Final Count Info Count Type Sponge, Sharps Counts Verification Skin Closure/end of Sequence procedure Count Results Correct, surgeon notified Counts Performed By Count Performed By Chris Wu FOREST MANAGEMENT PROFESSOR (Scrub) Count Performed By Yaquelin Murray Rn (RN) Last Modified By: Yaquelin Murray Rn 04/29/21 10:20:51 [facility] IntraOp Delays Entry 1 Delay Reason Surgeon late - no reason Duration 5 Minute(s) Last Modified By: Yaquelin Murray Rn 04/29/21 08:07:28 [facility] IntraOp Departure from OR Entry 1 Integumentary Assessment Integumentary WDL Assessment WDL Transfer/Handoff Transfer to PACU Phase I Handoff Method Bedside/Face to face, Phone call Post-op Transport Stretcher/[place]inah Via Patient Transport ALESSANDRA LEVIN APRN, Accompanied by GAL, DAGOBERTO PHILLIPS, Mercedes Emp Student Nurse Phlebotomy Services Representative, Yaquelin Murray Rn Last Modified By: Yaquelin Murray Rn 04/29/21 07:32:50 [facility] IntraOp Dressing and Packing Entry 1 Type Dressing Location LOWER BACK Wound Dressing Item Island Last Modified By: Yaquelin Murray Rn 04/29/21 07:33:09 [facility] IntraOp Fire Risk Assessment Entry 1 Fire Info Surgical Site or 0- No Incision Above the Xyphoid Open O2 Source 0- No (Mask or Cannula) Available Ignition 1- Yes (ESU, Laser, Light Source) Fire Risk 1 Assessment Score Fire Score Fire Risk Yes Assessment Complete Fire Risk Yaquelin Murray Rn Assessment Verified By Fire Risk 04/29/21 07:33:00 Assessment Verified Date/Time Fire Risk Standard Fire Yes Safety Precautions Followed Last Modified By: Yaquelin Murray Rn 04/29/21 07:33:22 [facility] IntraOp General Case Mosaic Floor Layer 1 Case Information OR OR 10 [facility] Case Level 1 Room Verified Yes Wound Class I - Clean Specialty Neurosurgery Anesthesia Type General ASA Class 2 Diagnosis Preop Diagnosis LUMBAR STENOSIS Postop Same As Preop No Postop Diagnosis SEE MD NOTES Last Modified By: Yaquelin Murray Rn 04/29/21 07:33:46 [facility] IntraOp Implant Log Entry 1 Entry 2 Entry 3 Type Implant (Synthetic) Tissue Implant Implant (Synthetic) (Biologic) Implant Log Implant Type Hardware Hardware Tissue Implant Type Bone Implant CAGE EIT PLIF H 8MM 8D BONE VIVIGEN FORMABLE IMP VPR PRM CFXFEN XTAB Identification 14/06-440762 [id number] Description Implant Quantity 1 1 4 Implant Site BACK back BACK Implant [id number] Identification Model Number Implant Identification Serial Number Implant [id number] Identification Lot Number Implant J&J:Depuy:Depuy Spine Lifenet:Lifenet J&J:Depuy:Depuy Spine Identification Transplant Srv Microelectronics Assembler Name: Implant [id number] Identification Catalog Number Implant Size Implant Has an Yes Yes Expiration Date Implant Expiration 07/19/24 03/31/22 Date Wasted Radioactive Material Time Implanted Tissue Implant Continue for Tissue Implant Documentation Tissue Identification Number Graft Prep Per Yes Microelectronics Assembler Instructions: Tissue Preparation N/A Method: Reconstitution Solution: Reconstitution Solution Lot Number Reconstitution Solution Expiration Date: Thawing Solution Thawing Solution Lot Number Thawing Solution Expiration Date Preparation Materials, Other Preparation Materials, Other Lot Number Preparation Materials, Other Expiration Date Tissue JAMI ISLAS, Prepared/Processed MD-SNU By Microelectronics Assembler Yes Paperwork Completed Implant Type Comment Last Modified By: Yaquelin Murray Rn Compton, Tracy R, Rn Compton, Tracy R, Rn 04/29/21 09:35:06 04/29/21 10:11:55 04/29/21 10:11:55 Entry 4 Entry 5 Entry 6 Type Implant (Synthetic) Implant (Synthetic) Implant (Synthetic) Implant Log Implant Type Hardware Hardware Hardware Tissue Implant Type Implant MIS COTLON PLY SCRW SET JUAN LUIS SPINE VIPER JUAN LUIS SPINE VIPER Identification [id number] Description Implant Quantity 4 1 1 Implant Site BACK BACK BACK Implant Identification Model Number Implant Identification Serial Number Implant Identification Lot Number Implant J&J:Depuy:Depuy Spine J&J:Depuy:Depuy Spine J&J:Depuy:Depuy Spine Identification Microelectronics Assembler Name: Implant [id number] Identification Catalog Number Implant Size Implant Has an Expiration Date Implant Expiration Date Wasted Radioactive Material Time Implanted Tissue Implant Continue for Tissue Implant Documentation Tissue Identification Number Graft Prep Per Microelectronics Assembler Instructions: Tissue Preparation Method: Reconstitution Solution: Reconstitution Solution Lot Number Reconstitution Solution Expiration Date: Thawing Solution Thawing Solution Lot Number Thawing Solution Expiration Date Preparation Materials, Other Preparation Materials, Other Lot Number Preparation Materials, Other Expiration Date Tissue Prepared/Processed By Microelectronics Assembler Paperwork Completed Implant Type Comment Last Modified By: Yaquelin Murray Rn Compton, Tracy R, Rn Compton, Tracy R, Rn 04/29/21 10:11:55 04/29/21 10:11:55 04/29/21 10:11:55 [facility] IntraOp Implant Log Audit 04/29/21 10:11:55 Cant Hooker: [id number] Modifier: [id number] <+> 2 Implant Identification Description <+> 2 Implant Identification Microelectronics Assembler Name: <+> 2 Implant Expiration Date <+> 2 Implant Site <+> 2 Implant Quantity <+> 2 Implant Identification Catalog Number <+> 2 Tissue Implant Type <+> 2 Graft Prep Per Microelectronics Assembler Instructions: <+> 2 Tissue Preparation Method: <+> 2 Tissue Prepared/Processed By <+> 2 Microelectronics Assembler Paperwork Completed <+> 2 Implant Identification Model Number <+> 2 Implant Has an Expiration Date <+> 2 Type <+> 3 Implant Identification Description <+> 3 Implant Identification Microelectronics Assembler Name: <+> 3 Implant Site <+> 3 Implant Quantity <+> 3 Implant Identification Catalog Number <+> 3 Implant Type <+> 3 Type <+> 4 Implant Identification Description <+> 4 Implant Identification Microelectronics Assembler Name: <+> 4 Implant Site <+> 4 Implant Quantity <+> 4 Implant Identification Catalog Number <+> 4 Implant Type <+> 4 Type <+> 5 Implant Identification Description <+> 5 Implant Identification Microelectronics Assembler Name: <+> 5 Implant Site <+> 5 Implant Quantity <+> 5 Implant Identification Catalog Number <+> 5 Implant Type <+> 5 Type <+> 6 Implant Identification Description <+> 6 Implant Identification Microelectronics Assembler Name: <+> 6 Implant Site <+> 6 Implant Quantity <+> 6 Implant Identification Catalog Number <+> 6 Implant Type <+> 6 Type [facility] IntraOp Intraoperative Assessment Entry 1 Handoff Method Bedside/Face to face, Online nursing summary Valid History / Yes Physical in Chart Preoperative Yes Checklist Reviewed/Evaluated Allergies Reviewed Yes Patient is Latex No Sensitive Isolation Not applicable Precautions Noted Level of WDL Consciousness (WDL = Alert, Oriented to Person, Place, and Time) Skin Assessment Yes Verified Present Upon IVs Arrival to OR Last Modified By: Yaquelin Murray Rn 04/29/21 07:34:06 [facility] IntraOp Intraoperative Equipment Entry 1 Type Equipment Equipment Equipment Trever Suction System ID Number [id number] Setting ON Intraop Monitoring Blood Pressure Non-Invasive BP Device Source Antiembolic Devices Antiembolic Devices Sequential compression device, knee high Antiembolic Device Bilateral Location Antiembolic Device [id number] ID Number Antiembolic Device ON Setting Scopes Photo/Video Documentation Last Modified By: Yaquelin Murray Rn 04/29/21 07:34:39 [facility] IntraOp Medication Admin Entry 1 Entry 2 Entry 3 Medication/Irrigant lidocaine 1% w/ SPNG SURGFOAM thrombin 5000units epinephrine 1:100,000 [id number] topical powder - 30ml vial - [id number] Combo Med List 1 - Combo Med 1 - Combo Med Time Administered 04/29/21 08:52:00 04/29/21 08:52:00 04/29/21 08:52:00 Route of LOAL TOPICAL TOICAL Administration Dose Dose 20 5000 Unit of Measure ml units Volume Administered By JAMI ISLAS TUTT, MATTHEW PAIGE, TUTT, MATTHEW PAIGE, MD-SNU MD-SNU -SNU Procedure Irrigation Irrigant Volume In Irrigant Volume Out Last Modified By: Yaquelin Murray Rn Compton, Tracy R, Rn Yaquelin Murray Rn 04/29/21 10:34:20 04/29/21 10:34:20 04/29/21 10:34:20 Entry 4 Medication/Irrigant Neosporin 15Gm ointment - [id number] Combo Med List Time Administered 04/29/21 08:52:00 Route of TOICAL Administration Dose Dose Unit of Measure Volume Administered By JAMI ISLAS MD-SNU Procedure Irrigation Irrigant Volume In Irrigant Volume Out Last Modified By: Yaquelin Murray Rn 04/29/21 10:34:20 [facility] IntraOp Medication Admin Audit 04/29/21 10:34:20 Cant Hooker: [id number] Modifier: [id number] <*> Medication/Irrigant lidocaine 1% w/ epinephrine 1:100,000 30ml vial - [id number] 1 <*> Route of Administration LOAL 1 <*> Administered By JAMI ISLAS MD-SNU 1 <*> Dose 20 1 <*> Time Administered 04/29/21 08:52:00 1 <*> Unit of Measure ml Entry 2 was deleted. Higher numbered entries shifted one position to fill the gap. <-> 2 Medication/Irrigant Marcaine 0.25% 30ml vial - [id number] <-> 2 Route of Administration LOCAL <-> 2 Administered By JAMI ISLAS MD-SNU <-> 2 Dose 30 <-> 2 Time Administered 04/29/21 08:52:00 <-> 2 Combo Med List 2 - Combo Med <-> 2 Unit of Measure ml 3 <*> Medication/Irrigant SPNG SURGFOAM [id number] 3 <*> Route of Administration TOPICAL 3 <*> Administered By JAMI ISLAS MD-SNU 3 <+> Dose 3 <*> Time Administered 04/29/21 08:52:00 3 <*> Combo Med List 1 - Combo Med 3 <+> Unit of Measure 4 <*> Medication/Irrigant thrombin 5000units topical powder - [id number] 4 <*> Route of Administration TOICAL 4 <*> Administered By JAMI ISLAS MD-SNU 4 <-> Dose 5000 4 <*> Time Administered 04/29/21 08:52:00 4 <-> Combo Med List 1 - Combo Med 4 <-> Unit of Measure units 5 <-> Medication/Irrigant Neosporin 15Gm ointment - [id number] 5 <-> Route of Administration TOICAL 5 <-> Administered By JAMI ISLAS MD-SNU 5 <-> Time Administered 04/29/21 08:52:00 Entry 6 was deleted. Higher numbered entries shifted one position to fill the gap. <-> 6 Medication/Irrigant Kenalog 40mg 1ml injection - [id number] <-> 6 Route of Administration NJECTION <-> 6 Administered By JAMI ISLAS MD-SNU <-> 6 Dose 40 <-> 6 Time Administered 04/29/21 08:52:00 <-> 6 Combo Med List 2 - Combo Med <-> 6 Unit of Measure mg 04/29/21 09:00:04 Cant Hooker: [id number] Modifier: [id number] 1 <*> Medication/Irrigant lidocaine 1% w/ epinephrine 1:100,000 30ml vial - [id number] 1 <+> Dose 1 <+> Time Administered 2 <*> Medication/Irrigant Marcaine 0.25% 30ml vial - [id number] 2 <+> Dose 2 <+> Time Administered 2 <+> Combo Med List 3 <*> Medication/Irrigant SPNG SURGFOAM [id number]-028089 3 <+> Time Administered 4 <*> Medication/Irrigant thrombin 5000units topical powder - [id number] 4 <+> Time Administered 5 <*> Medication/Irrigant Neosporin 15Gm ointment - [id number] 5 <+> Time Administered <+> 6 Medication/Irrigant <+> 6 Route of Administration <+> 6 Administered By <+> 6 Dose <+> 6 Time Administered <+> 6 Combo Med List <+> 6 Unit of Measure [facility] IntraOp Patient Positioning Entry 1 Procedure MIS Posterior Fusion CT Guided Body Position Prone Left Arm Position Secured on padded arm board Right Arm Position Secured on padded arm board Left Leg Position Uncrossed, parallel Right Leg Position Uncrossed, parallel Feet Uncrossed Yes Pressure Points Yes Checked Positioning Devices Arm Board, Head Rest, Pad, Arm, Pillows, Germán Table, Safety Strap, Arm(s), Safety Strap, Thighs Positioned By JAMI ISLAS MD-SNU, ALESSANDRA LEVIN, LOAN OPERATIONS MANAGER, GAL, DAGOBERTO PHILLIPS, Non Emp Student Nurse Phlebotomy Services Representative, Murray, Yaquelin R, Rn Position Verified Positioning Yes Verified by Anesthesia Positioning Yes Verified by Surgeon Last Modified By: Yaquelin Murray Rn 04/29/21 08:47:15 [facility] IntraOp Patient Positioning Audit 04/29/21 08:47:15 Cant Hooker: [id number] Modifier: [id number] 1 <*> Procedure MIS Posterior Fusion CT Guided [facility] IntraOp Sign In Entry 1 Patient, Site, Yes Procedure Identified Surgical Consent Yes Confirmed Relevant Surgical Yes Documents Available Surgical Site Yes Marked by person performing procedure Anesthesia Machine Yes Check Completed Medication Checks Yes Completed Allergies Yes Airway Difficult No Airway/Aspiration Risk Difficult Yes Airway/Aspiration Intervention Equipment Available Blood Loss Risk Yes Blood Loss Yes Intervention Equipment Prepared and Ready Blood Identifiers Not applicable Verified Per Policy Hypothermia Risk Yes Warming Measures Yes Taken Last Modified By: Yaquelin Murray Rn 04/29/21 07:36:06 [facility] IntraOp Sign Out Entry 1 RN Confirmation Surgical Yes Procedure(s) Identified Instrument, Sponge Yes and Sharps Counts Correct/Documented Equipment Problems N/A Documented Specimen Labeled N/A Correctly Urinary Catheter N/A Documented in IView [place] Patient Yes Recovery Concerns Reviewed with Anesthesia Provider, Surgeon and RN [place] Patient Yes Management Concerns Reviewed with Anesthesia Provider, Surgeon and RN Safety Checklist Yes Elements Complete? RN Sign Out Yaquelin Murray Rn Signature RN Sign Out 04/29/21 10:42:00 Signature Date/Time Plan of Care Outcome - Fire Risk OUTCOME STATEMENT: Goal met Patient is free from injury related to surgical fire Plan of Care Outcome - Pt Positioning OUTCOME STATEMENT: Goal met Absence of signs and symptoms of positioning injury. Plan of Care Outcome - Skin Prep OUTCOME STATEMENT: Goal met Intraoperative care is consistent with measures to prevent infection Plan of Care Outcome - Xray/Images OUTCOME STATEMENT: Goal met Absence of observable signs or symptoms of radiation injury Plan of Care Outcome - Counts OUTCOME STATEMENT: Goal met Absence of signs and symptoms of injury related to extraneous objects Last Modified By: Yaquelin Murray Rn 04/29/21 10:42:47 [facility] IntraOp Sign Out Audit 04/29/21 10:42:47 Cant Hooker: [id number] Modifier: [id number] <+> 1 RN Sign Out Signature Date/Time [facility] IntraOp Skin Prep Entry 1 Procedure MIS Posterior Fusion CT Guided Prescribed Yes Pre-Surgical Prep Completed Prep Area LOWER BACK Intraop Prep Integumentary WDL Assessment WDL Prep Agents Chlorhexidine gluconate/alcohol, DuraPrep Prep by Yaquelin Murray Rn Hair Removal Methods No hair removal performed Last Modified By: Yaquelin Murray Rn 04/29/21 07:37:06 [facility] IntraOp Surgical Procedures Entry 1 Procedure MIS Posterior Fusion CT Guided Additional (MIS L5-S 1 TLIF USING Procedure AIRO) Description Primary Procedure Yes Primary Surgeon JAMI ISLAS MD-SNU Start 04/29/21 08:52:00 Stop 04/29/21 10:32:00 Anesthesia Type General Specialty Neurosurgery Wound Class I - Clean Last Modified By: KARI ROBIN RN 04/30/21 07:04:10 [facility] IntraOp Surgical Procedures Audit 04/30/21 07:04:10 Cant Hooker: [id number] Modifier: [id number] <*> Procedure MIS Posterior Fusion CT Guided 04/29/21 10:42:49 Cant Hooker: [id number] Modifier: [id number] <+> 1 Start <+> 1 Stop [facility] IntraOp Temp Regulation Devices Entry 1 Temp Regulation Temperature Forced Air Warming Regulation Device device, Warm blankets Temperature 53507 Regulation Device Serial/Unit Number Temperature Upper body Regulation Site Temperature Device ON Setting Temperature ALESSANDRA LEVIN APRN, Regulation Device STRAP MACHINE OPERATOR AUTOMATIC Applied by Last Modified By: Yaquelin Murray Rn 04/29/21 07:38:22 [facility] IntraOP Time Out Entry 1 Procedure to be MIS Posterior Fusion CT Performed Guided Time Out Time Out Pause Time 04/29/21 08:50:00 All activity Yes suspended (unless life threatening emergency) Team Verbally Correct patient Confirms Information identity, Correct side and site are marked, Consent form is present and accurate, Agreement on the procedure to be done, Correct patient position, Relevant images/results properly labeled/appropriately displayed, Confirm antibiotics have been administered, Confirm the skin prep has dried, Confirm prosthesis/implant/devic e is present, Performed in location of procedure after prepped/draped, Reconcile problems if responses among team members differ Antibiotic Yes Prophylaxis Administered Or In Progress Within the Last 60 Minutes Beta Williams N/A Administered Venous N/A Thromboembolism Prophylaxis Required Anticipated Critical Events Surgeon None expected Anesthesia Provider None expected Nursing Assures Sterility of instruments, Equipment concerns or issues, Implant Availability Essential Imaging Yes Labeled and Displayed Last Modified By: Yaquelin Murray Rn 04/29/21 08:54:31 [facility] IntraOP Time Out Audit 04/29/21 08:54:31 Cant Hooker: [id number] Modifier: [id number] 1 <*> Time Out Pause Time 04/29/21 08:40:00 1 <*> Procedure to be Performed MIS Posterior Fusion CT Guided 04/29/21 08:40:17 Cant Hooker: [id number] Modifier: [id number] 1 <+> Time Out Pause Time 1 <*> Procedure to be Performed MIS Posterior Fusion CT Guided [facility] IntraOp X-Ray and Images Entry 1 X-Ray/Imaging Type Other Fluoroscopy Type O-Arm Site BACK Map Compiler Name MCKEONORLANDO Protective Devices No Used Last Modified By: Yaquelin Murray Rn 04/29/21 08:29:20 [facility] IntraOp X-Ray and Images Audit 04/29/21 08:29:20 Cant Hooker: [id number] Modifier: [id number] <+> 1 Map Compiler Name Case Comments <None> Finalized By: AUDELIA SERRANO Document Signatures Signed By: Yaquelin Murray Rn 04/29/21 10:42 KARI ROBIN RN 04/30/21 07:04 AUDELIA SERRANO 05/02/21 15:35 Unfinalized History Date/Time Username Reason for Unfinalizing Freetext Reason for Unfinalizing 04/30/21 07:04 WASSONSY Correct Documentation 05/02/21 15:33 WATLIANA Correct Billing Electronically signed by Chon [facility] Conversion Outside Sales Professional Cerner at 01/04/2023 12:47 PM CDT documented in this encounter Plan of Treatment Not on file documented as of this encounter Visit Diagnoses Not on filedocumented in this encounter
--- OUTSIDE RECORDS SUMMARY | 2025-03-11 09:22 | XMS_ITS | Encounter Summary ---
Author Organization [employer] Address [address] [place] [address] Care Team Providers Care Director Patient Financial Services Name Role Phone Unavailable Primary Care Provider Unavailabl e Encounter Details Date Type Department Care Team (Late st Contact Info) Description 05/01/[address] [facility] Neurology - [address] [facility] [address] [place] [address] Jami Clemons MD [address] [place] [address] Social History Tobacco Use Types Packs/Day Years Used Date Smoking Tobacco: Never Assessed Comments Unknown Sex and Gender Information Value Date Recorded Sex Assigned at Not on file Legal Sex Female 5:30 PM CDT Gender Identity Not on file Sexual Orientation Not on file documented as of this encounter Miscellaneous Notes * Cerner Conversion Note - Jami Clemons MD - 05/01/2021 11:36 AM EDT Patient: ESTER BERNARDO Age: 51 Years Sex: Female : 1970 Assessment/Plan POD 2 L5-S1 MIS TLIF postop pain is much better good mobility dc home, discussed post op expectations VTE Prophylaxis - Medical Sequential Compression Device Start: 04/29/21 11:03:00 EDT, Bilateral, Continuous Order (JAMI CLEMONS) Subjective pain feels much better wants to go home tolerating PO, +void and flauts denies cp soa cough abd pain nv Vital Signs T: 37.1 ??C TMIN: 36.7 ??C TMAX: 37.1 ??C HR: 101(Monitored) RR: 14 BP: 99/55 SpO2: 97% Physical Exam nad A&O incision cdi 01/21 documented in this encounter Plan of Treatment Not on file documented as of this encounter Visit Diagnoses Not on filedocumented in this encounter
--- OUTSIDE RECORDS SUMMARY | 2025-03-11 09:22 | XMS_ITS | Encounter Summary ---
Author Organization [employer] Address [address] [place] [address] Care Team Providers Care Rail Car Mechanic Name Role Phone Unavailable Primary Care Provider Unavailabl e Encounter Details Date Type Department Care Team (Late st Contact Info) Description 04/29/2021 Transcribed Document [facility] [place] Family Medicine [facility] [place] [address] ProviderLatisha MD [address] [place] [address] Social History Tobacco Use Types Packs/Day Years Used Date Smoking Tobacco: Never Assessed Comments Unknown Sex and Gender Information Value Date Recorded Sex Assigned at Not on file Legal Sex Female 5:30 PM CDT Gender Identity Not on file Sexual Orientation Not on file documented as of this encounter Miscellaneous Notes * Cerdebbi Conversion Note - Latisha ProviderMD - 04/29/2021 11:33 AM CDT Pain Assessment Entered On: 04/29/2021 13:10 EDT Performed On: 04/29/2021 13:34 EDT by MICHAEL BENNETT RN Intervention Information: oxyCODONE Performed by MICHAEL BENNETT RN on 04/29/2021 12:34:00 EDT oxyCODONE,5mg Oral,Pain (Mild 1-3) Pain Assessment Pain Assessment : Follow-up assessment Pain Scale Goal : 5 Pain Scale Used : 0-10 Scale Location : Back, Eye, left Pain Improved by Intervention : Yes MICHAEL BENNETT RN - 04/29/2021 13:07 EDT Pain Scale Intensity : 4 MICHAEL BENNETT RN - 04/29/2021 13:07 EDT Image 4 - Images currently included in the form version of this document have not been included in the text rendition version of the form. documented in this encounter Plan of Treatment Not on file documented as of this encounter Visit Diagnoses Not on filedocumented in this encounter
--- OUTSIDE RECORDS SUMMARY | 2025-03-11 09:22 | XMS_ITS | Encounter Summary ---
Author Organization [employer] Address [address] [place] [address] Care Team Providers Care Baby Stroller Rental Clerk Name Role Phone Unavailable Primary Care Provider Unavailabl e Encounter Details Date Type Department Care Team (Late st Contact Info) Description 04/30/2021 Transcribed Document [facility] [place] Family Medicine [facility] [place] [address] ProviderLatisha MD [address] [place] [address] Social History Tobacco Use Types Packs/Day Years Used Date Smoking Tobacco: Never Assessed Comments Unknown Sex and Gender Information Value Date Recorded Sex Assigned at Not on file Legal Sex Female 5:30 PM CDT Gender Identity Not on file Sexual Orientation Not on file documented as of this encounter Miscellaneous Notes * Cerner Conversion Note - Latisha Daugherty MD - 04/30/2021 8:27 AM CDT Pain Assessment Entered On: 04/30/2021 14:02 EDT Performed On: 04/30/2021 9:25 EDT by MICHAEL BENNETT RN Intervention Information: acetaminophen-HYDROcodone Performed by MICHAEL BENNETT RN on 04/30/2021 08:25:00 EDT acetaminophen-HYDROcodone,1Tab Oral,Pain (Moderate 4-6) Pain Assessment Pain Assessment : Follow-up assessment Pain Scale Goal : 5 Pain Scale Used : 0-10 Scale Location : Back Pain Improved by Intervention : Yes MICHAEL BENNETT RN - 04/30/2021 14:02 EDT Pain Scale Intensity : 5 MICHAEL BENNETT RN - 04/30/2021 14:02 EDT Image 4 - Images currently included in the form version of this document have not been included in the text rendition version of the form. documented in this encounter Plan of Treatment Not on file documented as of this encounter Visit Diagnoses Not on filedocumented in this encounter
--- OUTSIDE RECORDS SUMMARY | 2025-03-11 09:22 | XMS_ITS | Encounter Summary ---
Author Organization [employer] Address [address] [place] [address] Care Team Providers Care Electric Organ Assembler And Checker Name Role Phone Unavailable Primary Care Provider Unavailabl e Encounter Details Date Type Department Care Team (Late st Contact Info) Description 04/29/2021 Transcribed Document [facility] [place] [place] Family Medicine [facility] [place] [address] ProviderLatisha MD [address] [place] [address] Social History Tobacco Use Types [...] Latisha ProviderMD - 04/29/2021 8:52 AM CDT [facility] Main OR Preop Summary Primary Physician: JAMI ISLAS MD-CAITLIN Finalized Date/Time: 04/29/21 11:31:38 Pt. Name: ESTER GALVAN SHADY [place]/Sex: 1970 Female Med Rec #: [id number] Physician: JAMI ISLAS MD-SNU Financial #: [id number] Pt. Type: O Room/Bed: Admit/Disch: 04/29/21 06:48:00 - Institution: [facility] PreOp Case Times Entry 1 In Preop 04/29/21 05:49:00 Ready for Holding n/a Room Patient Ready for 04/29/21 07:20:00 Surgery Patient Out of Preop 04/29/21 08:00:00 Patient Out of n/a Holding Room Last Modified By: Carol Ga RN 04/29/21 11:31:36 [facility] PreOp Case Times Audit 04/29/21 11:31:36 Linoleum Floor Installer: [id number] Modifier: [id number] <+> 1 Patient Out of Preop 04/29/21 07:30:10 Linoleum Floor Installer: [id number] Modifier: [id number] <+> 1 Patient Ready for Surgery Finalized By: Carol Ga, RN Document Signatures Signed By: Carol Ga RN 04/29/21 11:31 Electronically signed by Chon [facility] Conversion Safety Consultant Cerner at 01/04/2023 1:08 PM CDT documented in this encounter Plan of Treatment Not on file documented as of this encounter Visit Diagnoses Not on filedocumented in this encounter
--- OUTSIDE RECORDS SUMMARY | 2025-03-11 09:22 | XMS_ITS | Encounter Summary ---
Author Organization [employer] Address [address] [place] [address] Care Team Providers Care Milled Rice Broker Name Role Phone Unavailable Primary Care Provider Unavailabl e Encounter Details Date Type Department Care Team (Late st Contact Info) Description 04/30/2021 Transcribed Document [facility] Neurology - [address] [facility] [address] [place] [address] Jami Clemons MD [address] [place] [address] Social History Tobacco Use Types Packs/Day Years Used Date Smoking Tobacco: Never Assessed Comments Unknown Sex and Gender Information Value Date Recorded Sex Assigned at Not on file Legal Sex Female 5:30 PM CDT Gender Identity Not on file Sexual Orientation Not on file documented as of this encounter Miscellaneous Notes * Cerner Conversion Note - Jami Clemons MD - 04/30/2021 10:48 AM EDT Patient: ESTER BERNARDO Age: 51 Years Sex: Female : 1970 Assessment/Plan POD 1 L5-S1 MIS TLIF change pain meds to hydrocodone, she is intolerant to oxycodone If pain is well controlled and doing well, will dc this afternoon. medicine following VTE Prophylaxis - Medical Sequential Compression Device Start: 04/29/21 11:03:00 EDT, Bilateral, Continuous Order (JAMI CLEMONS) Subjective preop leg pain better no flatus diminished appetite c/o incisional pain, oxycodone is making her nauseous has hydrocodone at home Vital Signs T: 36.8 ??C TMIN: 36.5 ??C TMAX: 37.6 ??C HR: 95(Monitored) RR: 16 BP: 94/56 SpO2: 100% Oxygen Settings (Last) Oxygen Therapy Mode: Room air (04/30/21 05:03:00) Oxygen Flow Rate: 6 Liter/Min (04/29/21 10:45:00) Intake & Output Totals Last 24 Hours (7a-7a) Input Total: 1356.25 mL Output Total: 0 mL Balance: 1356.25 mL Physical Exam A&O incisions cdi bandages intact and dry 01/21 documented in this encounter Plan of Treatment Not on file documented as of this encounter Visit Diagnoses Not on filedocumented in this encounter
--- OUTSIDE RECORDS SUMMARY | 2025-03-11 09:22 | XMS_ITS | Encounter Summary ---
Author Organization [employer] Address [address] [place] [address] Care Team Providers Care Clean Up Supervisor Name Role Phone Unavailable Primary Care Provider Unavailabl e Encounter Details Date Type Department Care Team (Late st Contact Info) Description 04/29/2021 Transcribed Document [facility] [place] [facility] [place] [address] ProviderLatisha MD [address] [place] [address] Social History Tobacco Use Types [...] Latisha ProviderMD - 04/29/2021 8:[address] [facility] Main OR PACU Summary Primary Physician: JAMI ISLAS MD-SNU Finalized Date/Time: 04/29/21 12:55:12 Pt. Name: ESTER GALVAN SHADY Valencai/Sex: 1970 Female Med Rec #: [id number] Physician: JAMI ISLAS MD-SNU Financial #: [id number] Pt. Type: O Room/Bed: 638/1 Admit/Disch: 04/29/21 06:48:00 - Institution: [facility] Main OR PACU I Case Times Entry 1 In PACU I 04/29/21 10:45:00 Ready for PACU 04/29/21 12:10:00 Discharge Discharge from PACU 04/29/21 12:10:00 I Last Modified By: AP BLACKWELL RN 04/29/21 12:31:10 Finalized By: AP BLACKWELL RN Document Signatures Signed By: AP BLACKWELL RN 04/29/21 12:55 documented in this encounter Plan of Treatment Not on file documented as of this encounter Visit Diagnoses Not on filedocumented in this encounter
--- OUTSIDE RECORDS SUMMARY | 2025-03-11 09:22 | XMS_ITS | Encounter Summary ---
Author Organization [employer] Address [address] [place] [address] Care Team Providers Care Sample Driller Name Role Phone Unavailable Primary Care Provider Unavailabl e Encounter Details Date Type Department Care Team (Late st Contact Info) Description 04/30/2021 Transcribed Document [facility] Family Medicine [address] [place] [address] ProviderLatisha MD [address] [place] [address] Social History Tobacco Use Types Packs/Day Years Used Date Smoking Tobacco: Never Assessed Comments Unknown Sex and Gender Information Value Date Recorded Sex Assigned at Not on file Legal Sex Female 5:30 PM CDT Gender Identity Not on file Sexual Orientation Not on file documented as of this encounter Miscellaneous Notes * Cerner Conversion Note - Latisha ProviderMD - 04/30/2021 10:52 AM CDT UM Authorization Entered On: 04/30/2021 10:52 EDT Performed On: 04/30/2021 10:52 EDT by Mercedes Mitchell Rn-Utilization Review Primary Insurance Authorization Authorization and Policy Numbers : Insurance 1 Health Plan: [employer] Policy Number: [id number] Authorization Number: AUTH OBT [id number] Insurance Primary Name : Veronica [id number] Authorization Status-Primary : Opo status approv Authorized Service Begin Date-Primary : 04/29/2021 EDT Observation Authorization Nbr-Primary : [id number] Historical Authorization Comments-Primary : Comment 1: Pt is geoffrey for OUT PT MIS Posterior Fusion CT Guided on 04/29/21 Libby OP auth# [id number] per LEIDA (MARY GARBER, Hydrologist 04/27/2021 15:29) Mercedes Mitchell Rn-Utilization Review - 04/30/2021 10:52 EDT Electronically signed by Chon [facility] Conversion Senior Production Supervisor Cerner at 01/04/2023 1:04 PM CDT documented in this encounter Plan of Treatment Not on file documented as of this encounter Visit Diagnoses Not on filedocumented in this encounter
--- OUTSIDE RECORDS SUMMARY | 2025-03-11 09:22 | XMS_ITS | Encounter Summary ---
Author Organization [employer] Address [address] [place] [address] Care Team Providers Care Rubber Press Operator Name Role Phone Unavailable Primary Care Provider Unavailabl e Encounter Details Date Type Department Care Team (Late st Contact Info) Description 04/29/2021 Transcribed Document [facility] Radiology [address] [place] [address] Janice Pan MD [address] [facility] [address] [place] [address] Social History Tobacco Use Types Packs/Day Years Used Date Smoking Tobacco: Never Assessed Comments Unknown Sex and Gender Information Value Date Recorded Sex Assigned at Not on file Legal Sex Female 5:30 PM CDT Gender Identity Not on file Sexual Orientation Not on file documented as of this encounter Miscellaneous Notes * Cerner Conversion Note - Janice Pan MD - 04/29/2021 5:30 PM EDT Patient: ESTER GALVAN Age: 51 years Sex: Female : 1970 Associated Diagnoses: None Author: FRANCESCA FUENTES PA-YARI CC: postop medical management HPI: 51 YO female with spinal stenosis who presented to [facility] for lumbar fusion by Dr. Clemons. Pt has failed outpt conservative therapy and elected for surgical intervention. We are asked to follow for postop medical management. Initial visit on floor --- Denies prior stroke or seizure. Denies HI, CHF or cardiac arrhythmia. Denies DM. Denies [...] ovale) Scoliosis Ulcerative colitis PSHx: Tubal ligation ([id number]). Cholecystectomy ([id number]). uterine ablation. neck surgery FHx: Mother - CVA, pancreatic cancer Father - tetrology of [place] Siblings - sister with Hashimotos SHx: No alcohol, tob or illicit drug use. Home Medications (16) Active acetaminophen-HYDROcodone 325 mg-10 mg oral tablet [...] injectable kit gabapentin 100 mg oral capsule [place] 10 mg-325 mg oral tablet 1 Tab, PRN, Oral, Q6H PriLOSEC 20 mg, Oral, BID Robaxin 500 mg oral tablet 500 mg = 1 Tab, PRN, Oral, QID Vitamin C 1,000 mg, Oral, Daily Allergies (9) Active Reaction Advil Anaphylaxis Bee Stings Anaphylaxis NSAIDs Anaphylaxis Flagyl Lip Swelling morphine Nausea and vomiting Peanuts Joint pain Seafood Joint swelling Strawberries Sinus drainage Tequin Migraine ROS: Constitutional: [No fevers, chills, sweats] HEENT: [No ear pain, nasal congestion, sore throat] left eye pain, irritation. Respiratory: [No shortness of breath, cough, sputum production] Cardiovascular: [No Chest pain, palpitations, shortness of breath] Gastrointestinal: [No nausea, vomiting, diarrhea, constipation] Genitourinary: [No hematuria, dysuria, incontinence Musculoskeletal: +back pain Integumentary: [No rash, pruritus, abrasions, lesions] Neurologic: [No seizures or stroke. No dizziness or syncope. PE: Vitals Signs (last 24 hrs) Last Charted Minimum Maximum Temp 97.7 (APR 29:) 97.7 (APR 29:) 99.5 (APR 29 10:45) Mon HR 65 (APR 29:) 60 (APR 29 11:30) 96 (APR 29 10:45) Resp Rate 14 (APR 29:) 14 (APR 29 10:45) 20 (APR 29 11:10) SBP 96 (APR 29:) 94 (APR 29 07:00) 132 (APR 29 10:50) DBP 75 (APR 29:) L 55 (APR 29 11:10) 87 (APR 29 10:50) MAP 79 (APR 29:) 75 (APR 29:30) 99 (APR 29 10:50) SpO2 98 (APR 29 15:21) 98 (APR 29 11:30) 100 (APR 29 10:45) GEN: Alert, awake, NAD; resting in bed. Neck: supple, no thyromegaly HEENT: NCAT, no icterus, no thrush, nares patent, left eye with some mild redness CV: S1S2, no murmur. No LE edema Resp: CTAB, NL; no wheezes or rhonchi Abd: Soft, NT, ND +BS Skin: no rashes on inspection and palpation. Ext: No LE edema. No joint edema, erythema. Neuro: A&O x 3, CN grossly intact Data: Labs (Last four charted values) WBC 6.7 (APR 27) HB 12.6 (APR 27) HCT 38.9 (APR 27) Plt 240 (APR 27) Na 137 (APR 27) K 4.3 (APR 27) Cl 105 (APR 27) CO2 28 (APR 27) BUN 10 (APR 27) Cr 0.90 (APR 27) Glu R 100 (APR 27) Ca 9.2 (APR 27) ECHO --- 2018 -- EF 60% Assessment: spondylolisthesis s/p lumbar fusion left eye pain, likely corneal abrasion UC GERD asthma Plan: tetracaine ophth solution -- erythromycin ophth oint Monitor BP; add PRN's, hold parameters bowel [...]
--- OUTSIDE RECORDS SUMMARY | 2025-03-11 09:22 | XMS_ITS | Encounter Summary ---
Author Organization [employer] Address [address] [place] [address] Care Team Providers Care Armored Transport Service Manager Name Role Phone Unavailable Primary Care Provider Unavailabl e Encounter Details Date Type Department Care Team (Late st Contact Info) Description 04/30/2021 Transcribed Document [facility] [place] [facility] [place] [address] ProviderLatisha MD [address] [place] [address] Social History Tobacco Use Types Packs/Day Years Used Date Smoking Tobacco: Never Assessed Comments Unknown Sex and Gender Information Value Date Recorded Sex Assigned at Not on file Legal Sex Female 5:30 PM CDT Gender Identity Not on file Sexual Orientation Not on file documented as of this encounter Miscellaneous Notes * Cerner Conversion Note - Latisha ProviderMD - 04/30/2021 7:00 AM CDT Pain Assessment Entered On: 04/30/2021 8:33 EDT Performed On: 04/30/2021 7:19 EDT by MICHAEL BENNETT RN Intervention Information: acetaminophen Performed by Nanette Maria LPN on 04/30/2021 06:19:00 EDT acetaminophen,650mg Oral Pain Assessment Pain Assessment : Initial assessment Pain Scale Goal : 5 Pain Scale Used : 0-10 Scale Location : Back Onset : Other: acute on chronic Quality : Aching Pain Radiation : No Pain Improved by : Medication, Relaxation Pain Improved by Intervention : Yes MICHAEL BENNETT RN - 04/30/2021 8:31 EDT Pain Scale Intensity : 5 MICHAEL BENNETT RN - 04/30/2021 8:31 EDT Image 4 - Images currently included in the form version of this document have not been included in the text rendition version of the form. documented in this encounter Plan of Treatment Not on file documented as of this encounter Visit Diagnoses Not on filedocumented in this encounter
--- OUTSIDE RECORDS SUMMARY | 2025-03-11 09:22 | XMS_ITS | Encounter Summary ---
Author Organization [employer] Address [address] [place] [address] Care Team Providers Care Medical Or Surgical Instrument Maker Name Role Phone Unavailable Primary Care Provider Unavailabl e Encounter Details Date Type Department Care Team (Late st Contact Info) Description 04/29/2021 Transcribed Document [facility] Family Medicine [facility] [place] [address] ProviderLatisha MD [address] [place] [address] Social History Tobacco Use Types Packs/Day Years Used Date Smoking Tobacco: Never Assessed Comments Unknown Sex and Gender Information Value Date Recorded Sex Assigned at Not on file Legal Sex Female 5:30 PM CDT Gender Identity Not on file Sexual Orientation Not on file documented as of this encounter Miscellaneous Notes * Cerner Conversion Note - Latisha ProviderMD - 04/29/2021 11:03 AM CDT Evaluation, Physical Therapy Entered On: 04/29/2021 16:22 EDT Performed On: 04/29/2021 14:23 EDT by JESS ARGUETA, MILAGRO General Information, PT Visit Type, PT : Initial evaluation Patient Orders : Order Date Order Ordering 04/29/2021 11:04 Physical Therapy Eval and Treat Ordered By: JAMI ISLAS MD-SNU Active Diagnoses : No Qualifying Diagnoses Therapy Diagnosis, PT : decreased functional mobility and activity tolerance Onset of Problem, PT : 04/29/2021 EDT Admission Date : 04/29/2021 06:48 Personal Devices : Personal Devices Dentures, upper Assistive Devices : Assistive Devices No Devices Recorded General Information Comment, PT : Dx: radiculopathy PMH: anxiety, scoliosis sx: L5-S1 fusion (04/29) JESS ARGUETA, PT - 04/29/2021 16:08 EDT General Status Patient Received Status : Supine in bed Treatment Start Time : 04/29/2021 14:02 EDT Patient Left Status : Sitting edge of bed, Communication board completed, All needs met and within reach RN/PCT Informed Comment : anoop Treatment End Time : 04/29/2021 14:23 EDT Treatment Time : 21 Minute(s) JESS ARGUETA PT - 04/29/2021 16:08 EDT History and Environment Living Situation, Therapy : Home Patient Lives With : Spouse Persons Assisting Patient at Home : Unknown Persons Providing Information : Patient ADL Equipment Comment : Rwx Home Setup : One story Stairs : Yes Stair Location(s) : Outside Outside Stairs, Number of Steps : 2 JESS ARGUETA PT - 04/29/2021 16:08 EDT Prior Level of Function PT GRID Prior LOF Ambulation, Household : Independent Prior LOF Ambulation, Community : Independent Prior LOF Bed Mobility : Independent Prior LOF Toileting : Independent Prior LOF Transfer : Independent JESS ARGUETA PT - 04/29/2021 16:08 EDT Functional Mobility Mobility Grid Supine to Sit : Rehab Minimal assistance Sit to Stand : Supervision/set-up Stand to Sit : Supervision/set-up JESS ARGUETA PT - 04/29/2021 16:08 EDT Gait Training/Assessment, PT Gait Assistance Level : Supervision Walking Distance : 60' Ambulatory Devices : Gait belt, Walker, front wheel JESS ARGUETA PT - 04/29/2021 16:08 EDT Cognition Assessment, PT Orientation : Oriented x 4 JESS ARGUETA PT - 04/29/2021 16:08 EDT Edu Topics Physical Therapy Education Grid Role of Physical Therapy : Verbalizes understanding JESS ARGUETA PT - 04/29/2021 16:08 EDT Indication Assesessment, PT Physical Therapy Indicated : Yes PT Problem List : Impaired, activities daily living, Impaired, bed mobility, Impaired, coordination/proprioception, Impaired, endurance tolerance, Impaired, gait, Impaired, sitting balance, Impaired, stair mobility, Impaired, standing balance, Impaired, strength, Impaired, transfers, Pain limiting function Potential Barriers To Therapy : Pain Rehabilitation Potential : Good JESS ARGUETA PT - 04/29/2021 16:08 EDT Plan of Care, PT PT Tx Plan/Goals Established w Patient : Yes PT Frequency Rehab : Five days per week PT Duration Rehab : Fourteen days PT Treatments Planned : Balance training, Bed mobility training, Gait training, Safety education, Stair training, Therapeutic exercises, Transfer training JESS ARGUETA, PT - 04/29/2021 16:08 EDT Care Home Goals Mobility/Bed Mobility LTG PT Grid Goal #1 Goal #2 Activity : Supine to sit Sit to stand Assist : Independent, complete Independent, modified Date to Meet : 05/13/2021 EDT 05/13/2021 EDT Goal Status : Intial Goal Intial Goal JESS ARGUETA, PT - 04/29/2021 16:08 EDT JESS ARGUETA, PT - 04/29/2021 16:08 EDT Ambulation LTG Grid Goal #1 Device : Walker, front wheel Distance : 250' Assist : Independent, modified Date to Meet : 05/13/2021 EDT Goal Status : Intial Goal JESS ARGUEAT, PT - 04/29/2021 16:08 EDT Treatment Note Subjective Comment : Patient agreed to PTx. RN ok'd PTx. Additional Objective Information : Patient educated about log roll and spinal precautions. She was able to complete log roll and sit up with Edda. Patient ambulates with supervision but demonstrates very slow skip. After ambulation patient transfered to restroom with supervision. Assessment : Patient demonstrates decreased independence and safety with functional mobility, transfers, and gait. Patient also demonstrates decreased activity tolerance and dynamic balance. Patient would benefit from skilled PT services in order to improve in these areas, minimize functional deficits, promote safety and independence, improve quality of life and return to PLOF. Plan for Treatment : Continue POC JESS ARGUETA, PT - 04/29/2021 16:08 EDT Pain Assessment Pain Scaled Used : 0-10 Pain scale Pain Score Pre-Intervention : 8 Location : Lumbar Pain Improved by : Medication Pain Improved by Intervention : Yes TWYLA ARGUETAITLYNN, PT - 04/29/2021 16:08 EDT Image 1 - Images currently included in the form version of this document have not been included in the text rendition version of the form. Anticipated Discharge Needs, OT/PT Anticipated Discharge to : Home, with home health Recommend Continued Therapy at Discharge : Yes JESS ARGUETA, PT - 04/29/2021 16:[address] [facility] PT Charges PT Ther Activities Ea 15 Min : 1 PT Eval Moderate Complexity : 1 JESS ARGUETA, PT - 04/29/2021 16:08 EDT Electronically signed by [facility] Conversion Champion Of Sustainable Design Cerner at 01/04/2023 12:55 PM CDT documented in this encounter Plan of Treatment Not on file documented as of this encounter Visit Diagnoses Not on filedocumented in this encounter
--- OUTSIDE RECORDS SUMMARY | 2025-03-11 09:22 | XMS_ITS | Encounter Summary ---
Author Organization [employer] Address [address] [place] [address] Care Team Providers Care Supervisory Geographer Name Role Phone Unavailable Primary Care Provider Unavailabl e Encounter Details Date Type Department Care Team (Late st Contact Info) Description 04/29/2021 Transcribed Document [facility] [facility] [place] [address] ProviderLatisha MD [address] [place] [address] Social History Tobacco Use Types Packs/Day Years Used Date Smoking Tobacco: Never Assessed Comments Unknown Sex and Gender Information Value Date Recorded Sex Assigned at Not on file Legal Sex Female 5:30 PM CDT Gender Identity Not on file Sexual Orientation Not on file documented as of this encounter Miscellaneous Notes * Cerner Conversion Note - Latisha ProviderMD - 04/29/2021 11:00 PM CDT Pain Assessment Entered On: 04/30/2021 5:12 EDT Performed On: 04/30/2021 0:40 EDT by Nanette Maria LPN Intervention Information: acetaminophen Performed by Nanette Maria LPN on 04/29/2021 23:40:00 EDT acetaminophen,650mg Oral Pain Assessment Pain Assessment : Follow-up assessment Pain Scale Goal : 5 Pain Scale Used : 0-10 Scale Location : Back Onset : Acute Quality : Throbbing Pain Radiation : No Pain Worsened by : Movement Pain Improved by : Medication, Repositioning Pain Intervention, Drug : Medicated Pain Intervention, Non-Drug : Positioning Opioid Adverse Effects : None Pain Improved by Intervention : Yes Nanette Maria LPN - 04/30/2021 5:11 EDT Pain Scale Intensity : 3 Nanette Maria LPN - 04/30/2021 5:11 EDT Image 4 - Images currently included in the form version of this document have not been included in the text rendition version of the form. Electronically signed by Brendon Givens Conversion Product Development Assistant Cerner at 01/04/2023 1:08 PM CDT documented in this encounter Plan of Treatment Not on file documented as of this encounter Visit Diagnoses Not on filedocumented in this encounter
--- OUTSIDE RECORDS SUMMARY | 2025-03-11 09:22 | XMS_ITS | Encounter Summary ---
Author Organization [employer] Address [address] [place] [address] Care Team Providers Care Detention Deputy Name Role Phone Unavailable Primary Care Provider Unavailabl e Encounter Details Date Type Department Care Team (Late st Contact Info) Description 04/30/2021 Transcribed Document [facility] [place] [address] [place] [address] ProviderLatisha MD [address] [place] [address] Social History Tobacco Use Types Packs/Day Years Used Date Smoking Tobacco: Never Assessed Comments Unknown Sex and Gender Information Value Date Recorded Sex Assigned at Not on file Legal Sex Female 5:30 PM CDT Gender Identity Not on file Sexual Orientation Not on file documented as of this encounter Miscellaneous Notes * Cerner Conversion Note - Historical ProviderMD - 04/30/2021 5:00 PM CDT Chart Check - Review Order Profile Entered On: 04/30/2021 17:26 EDT Performed On: 04/30/2021 17:00 EDT by MICHAEL BENNETT RN Chart Check Powerplans Initiated/Discontinued as Appropriate : Not applicable All Active Orders Reviewed : Yes MICHAEL BENNETT RN - 04/30/2021 17:26 EDT documented in this encounter Plan of Treatment Not on file documented as of this encounter Visit Diagnoses Not on filedocumented in this encounter
--- OUTSIDE RECORDS SUMMARY | 2025-03-11 09:22 | XMS_ITS | Encounter Summary ---
Author Organization [employer] Address [address] [place] [address] Care Team Providers Care Cloth Bin Packer Name Role Phone Unavailable Primary Care Provider Unavailabl e Encounter Details Date Type Department Care Team (Late st Contact Info) Description 05/01/2021 Transcribed Document [facility] Family Medicine [address] [place] [address] ProviderLatisha MD [address] [place] [address] Social History Tobacco Use Types Packs/Day Years Used Date Smoking Tobacco: Never Assessed Comments Unknown Sex and Gender Information Value Date Recorded Sex Assigned at Not on file Legal Sex Female 5:30 PM CDT Gender Identity Not on file Sexual Orientation Not on file documented as of this encounter Miscellaneous Notes * Cerner Conversion Note - Latisha Daugherty MD - 05/01/2021 1:18 PM CDT Final Discharge Planning Entered On: 05/01/2021 13:20 EDT Performed On: 05/01/2021 13:18 EDT by PAT FISH RN-Gear Shaper Set Up Operator Final Discharge Planning Discharge Arrangements : Patient Post-Acute Information Patient Name: ESTER GALVAN Gender: Female : 74 Age: 51 Years Curaspan Referral(s): Service: Organization: Business Address: Phone Number: Home Care Physician Services [facility] - [address], [address], [place], [address] Patient Offered Choice/Affiliations Explained : Yes Designation of Choice Signed : Yes Important Medicare Message Reviewed With : Other: Commercial Transportation Needs : Car Follow Up Appointment Scheduled : Yes Is Patient High/Moderate Readmission Risk? : No Patient/Family Notified of Plan : Yes Is Patient Ready for Discharge? : Yes Physician Notified Patient is Ready for Discharge? : Yes Discharge To Care Management : Home Health Services (Related/SOC within 3 days)-06 PAT FISH RN-Gear Shaper Set Up Operator - 05/01/2021 13:18 EDT Final Narrative Note Final Narrative Note : DC orders noted. Pt's pain is controlled now. Pt needs a BSC and has no DME provider preference. Obtained one from [facility] and it has been delivered. Referral sent to [facility] via [facility] and confirmed acceptance with [facility]. No other CM needs noted. PAT FISH RN-Gear Shaper Set Up Operator - 05/01/2021 13:18 EDT documented in this encounter Plan of Treatment Not on file documented as of this encounter Visit Diagnoses Not on filedocumented in this encounter
--- OUTSIDE RECORDS SUMMARY | 2025-03-11 09:22 | XMS_ITS | Encounter Summary ---
Author Organization [employer] Address [address] [place] [address] Care Team Providers Care Digital Marketing Associate Name Role Phone Unavailable Primary Care Provider Unavailabl e Encounter Details Date Type Department Care Team (Late st Contact Info) Description 04/29/2021 Transcribed Document [facility] Neurology - [address] [facility] [address] [place] [address] Maldonado Clemons MD [address] [place] [address] Social History Tobacco Use Types Packs/Day Years Used Date Smoking Tobacco: Never Assessed Comments Unknown Sex and Gender Information Value Date Recorded Sex Assigned at Not on file Legal Sex Female 5:30 PM CDT Gender Identity Not on file Sexual Orientation Not on file documented as of this encounter Miscellaneous Notes * Cerner Conversion Note - Maldonado Clemons MD - 04/29/2021 12:07 PM EDT DATE OF PROCEDURE: 04/29/2021 SURGEON: Maldonado Clemons MD PRIMARY CARE PROVIDER: Ricardo Curtis MD. PREOPERATIVE DIAGNOSIS: Left L5-S1 foraminal stenosis. POSTOPERATIVE DIAGNOSIS: Left L5-S1 foraminal stenosis. INDICATION FOR PROCEDURE: Left L5 radiculopathy, unresponsive to conservative management. PROCEDURES PERFORMED: 1. L5-S1 minimally invasive transforaminal lumbar interbody fusion. 2. Use of the operating microscope. 3. Use of intraoperative CT scan and spinal stereotactic navigation. SURGERY CENTER ADMINISTRATOR: Maynor Ortiz PA-C. TYPE OF ANESTHESIA: GEA. DESCRIPTION OF PROCEDURE IN DETAIL: Once consent was noted to be on chart, Ms. Bernardo was taken to the operating room. She was anesthetized and placed in a prone position on the Germán spine frame. All pressure points were carefully checked and padded. Preoperative antibiotics were given. A time-out was called. A low-dose CT scan was performed to plan the skin incisions as well as place 2 Steinmann pins into the right iliac crest. A two-pin fixator was placed on these pins and reference array for further stereotactic navigation. #10 blade was used to make vertical incisions 5 cm off midline over L5-S1. The fascia was incised, and a tubular dilator system was docked on the left. The level was confirmed. The operating microscope was brought into the field. Soft tissue was removed off the L5-S1 interspace, and at this time, a hemilaminectomy and facetectomy was performed. Full decompression of the left L5-S1 foramen was achieved. The disk space was exposed, and an annulotomy with a complete diskectomy was performed. An 8 mm conduit cage packed with ViviGen and recycled lamina was placed into the disk space across the midline. We verified that the exiting L5 and descending S1 nerve root was completely freed. No CSF was visualized throughout this procedure. Meticulous hemostasis was obtained, and the retractor was removed. A repeat CT scan was performed of the segment using stereotactic navigation and Blink for iPhone and Android System pedicle screws were placed at L5 and S1 bilaterally. A repeat scan showed good placement of the hardware and cage. A an was placed from L5-S1 bilaterally and set screws torqued to factory specifications. Extension tabs were removed. One Vicryl reapproximated the paraspinous muscles and fascia, 2-0 Vicryl closed the space and closed the skin subcuticularly. The skin was stapled. Bacitracin and Covaderm were applied. Steinmann pins removed. Maynor Ortiz assisted throughout the surgery and helped perform the closure. SPECIMEN SENT: None. ESTIMATED BLOOD LOSS: 50 mL. DRAINS: None. COMPLICATIONS: None. /[id number] Maldonado Clemons MD MPT/AQ / MPT / MODL /[id number] CC: Ricardo Curtis MD documented in this encounter Plan of Treatment Not on file documented as of this encounter Visit Diagnoses Not on filedocumented in this encounter
--- OUTSIDE RECORDS SUMMARY | 2025-03-11 09:22 | XMS_ITS | Encounter Summary ---
Author Organization [employer] Address [address] [place] [address] Care Team Providers Care Clinical Informatics Strategist Name Role Phone Unavailable Primary Care Provider Unavailabl e Encounter Details Date Type Department Care Team (Late st Contact Info) Description 04/30/2021 Transcribed Document [facility] [place] [facility] [place] [address] ProviderLatisha MD [address] [place] [address] Social History Tobacco Use Types Packs/Day Years Used Date Smoking Tobacco: Never Assessed Comments Unknown Sex and Gender Information Value Date Recorded Sex Assigned at Not on file Legal Sex Female 5:30 PM CDT Gender Identity Not on file Sexual Orientation Not on file documented as of this encounter Miscellaneous Notes * Cerner Conversion Note - Latisha ProviderMD - 04/30/2021 2:44 PM CDT Initial Discharge Planning Entered On: 04/30/2021 14:49 EDT Performed On: 04/30/2021 14:44 EDT by PAT FISH RN-Personnel Arbitrator Initial Assessment I Previously Documented Living Environment : No qualifying data available. Living Situation : Home Patient Lives With : Spouse Is the Patient a Caregiver at Home? : No Emergency Contact #1 : Hector Bernardo Emergency Contact #1 Emergency Contact #1 Relationship : Emergency Contact #2 : ` Emergency Contact #2 Phone Number : ` Emergency Contact #2 Relationship : ` Enter Doctors Name : ASAEL GOTTLIEB MD-[facility] Does Patient have PCP Listed? : Yes PAT FISH RN-Personnel Arbitrator - 04/30/2021 14:44 EDT Initial Assessment II Sensory and Motor Deficits : None Current Home Treatments and Equipment : Walker Does the Patient have a Floor to SNF Benefit? : No PAT FISH RN-Personnel Arbitrator - 04/30/2021 14:44 EDT Discharge Needs I Anticipated Discharge Date : 05/01/2021 EDT Anticipated Discharge To, CM : Home with home health Current Home Treatment/Equipment : Current Home Treatment/Equipment No qualifying data available. Post Acute/Home Treatments : None Documentation Status Complete : Yes PAT FISH RN-Personnel Arbitrator - 04/30/2021 14:44 EDT Discharge Needs II Professional Skilled Services : Professional Skilled Services No qualifying data available. Needs Assistance with Transportation : No Discharge Options Discussed with Patient : Home Health Patient Discharge Goal : Home health care PAT FISH RN-Personnel Arbitrator - 04/30/2021 14:44 EDT Narrative Note Narrative Note : 51yo female pt s/p L5-S1 TLIF. Pt ambulated 60ft yesterday, 100ft this am, and 40ft this pm. Met with pt and spouse at bedside to discuss DCP. Pt has a walker at home. She agrees to for PT and has no SENIOR ANALYST preference. Referral sent via mary and confirmed acceptance with [facility]. Pain is not managed on po meds. Likely dc home with HH tomorrow 05/01. CM will follow. PAT FISH RN-Personnel Arbitrator - 04/30/2021 14:44 EDT Electronically signed by Brendon Givens Conversion Construction Craft Laborer Briannaner at 01/04/2023 12:59 PM CDT documented in this encounter Plan of Treatment Not on file documented as of this encounter Visit Diagnoses Not on filedocumented in this encounter
--- OUTSIDE RECORDS SUMMARY | 2025-03-11 09:22 | XMS_ITS | Encounter Summary ---
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 Role Phone Unavailable Primary Care Provider Unavailabl e Encounter Details Date Type Department Care Team (Late st Contact Info) Description 04/29/2021 Transcribed Document [facility] Neurology - [address] [facility] [address] [place] [address] Maldonado Clemons MD [address] [place] [address] Social History Tobacco Use Types Packs/Day Years Used Date Smoking Tobacco: Never Assessed Comments Unknown Sex and Gender Information Value Date Recorded Sex Assigned at Not on file Legal Sex Female 5:30 PM CDT Gender Identity Not on file Sexual Orientation Not on file documented as of this encounter Miscellaneous Notes * Cerner Conversion Note - Maldonado Clemons MD - 04/29/2021 7:58 AM EDT Patient: ESTER BERNARDO Age: 51 years Sex: Female : 1970 Associated Diagnoses: None Author: DALE MOHAMUD APRN Chief Complaint back, LLE pain Review of Systems ROS reviewed as documented in chart no change since last seen by surgeon Health Status Allergies: Allergic Reactions (Selected) Severe Advil- Anaphylaxis. Bee Stings- Anaphylaxis. NSAIDs- Anaphylaxis. Severity Not Documented Flagyl- Lip swelling. Morphine- Nausea and vomiting. Peanuts- Joint swelling and joint pain. Seafood- Joint pain and joint swelling. Strawberries- Nasal itching and sinus drainage. Tequin- Migraine., Allergies (9) Active Reaction Advil Anaphylaxis Bee Stings Anaphylaxis NSAIDs Anaphylaxis Flagyl Lip Swelling morphine Nausea and vomiting Peanuts Joint pain Seafood Joint swelling Strawberries Sinus drainage Tequin Migraine Current medications: (Selected) Documented Medications Documented ALPRAZolam 0.25 mg oral tablet: 1 Tab, Oral, TID, PRN: as needed for anxiety, 0 Refill(s) Bentyl: 20 mg, Oral, QID, PRN: Ulcerative colitis, 0 Refill(s) Calcium, Magnesium and Zinc oral tablet: 1 Tab, Oral, Daily, 30 Tab, 0 Refill(s) Dulcolax Stool Softener: 100 mg, Oral, BID, PRN: as needed for constipation, 0 Refill(s) Norris 10 mg-325 mg oral tablet: 1 Tab, Oral, Q6H, PRN: as needed for pain, 0 Refill(s) PriLOSEC: 20 mg, Oral, BID, 0 Refill(s) Robaxin 500 mg oral tablet: 1 Tab, Oral, QID, PRN: Muscle Spasms Vitamin C: 1,000 mg, Oral, Daily, 0 Refill(s) balsalazide 750 mg oral capsule: 4 Cap, Oral, At Bedtime balsalazide 750 mg oral capsule: 5 Cap, Oral, QAM bisoprolol 5 mg oral tablet: 0.5 Tab, Oral, Daily, evening, 0 Refill(s) clopidogrel 75 mg oral tablet: 1 Tab, Oral, Daily, 0 Refill(s), Home Medications (12) Active ALPRAZolam 0.25 mg oral tablet 0.25 mg [...] Stool Softener 100 mg, PRN, Oral, BID Norris 10 mg-325 mg oral tablet 1 Tab, PRN, Oral, Q6H PriLOSEC 20 mg, Oral, BID Robaxin 500 mg oral tablet 500 mg = 1 Tab, PRN, Oral, QID Vitamin C 1,000 mg, Oral, Daily , No qualifying data available Problem list: All Problems Ulcerative colitis / SNOMED CT 220658547 / Confirmed Scoliosis / SNOMED CT 406705175 / Confirmed PFO (patent foramen ovale) / SNOMED CT 500846674 / Confirmed Migraine / SNOMED CT 98710654 / Confirmed Back pain / SNOMED CT 685875772 / Confirmed Asthma / SNOMED CT 254544903 / Confirmed Arthritis / SNOMED CT 8446363 / Confirmed Anxiety / SNOMED CT 63890579 / Confirmed, Active Problems (8) Anxiety Arthritis Asthma Back pain with LLE radiculopathy Migraine PFO (patent foramen ovale) Scoliosis Ulcerative colitis Histories Past Medical History: No active or resolved past medical history items have been selected or recorded. Family History: No family history items have been selected or recorded. Procedure history: Tubal ligation ([id number]). Cholecystectomy ([id number]). uterine ablation. neck surgery. Social History Social & Psychosocial Habits Alcohol 04/24/2021 Alcohol Use History, Social Habits Yes Alcohol Use in Last Twelve Months Yes Alcohol Use Comment maybe three times a year Substance Abuse 04/24/2021 Recreational Drug Use History No Recreational Drug Use Last 12 Months No Tobacco 04/24/2021 Smoking Status Former smoker, quit more Smokeless Tobacco Status Never Smokeless Tobacco Use History None Month Tobacco Last Used quit about 15 years ago Second Hand Smoke Exposure No . Physical Examination VS/Measurements No qualifying data available General: Alert and oriented, No acute distress. Eye: Pupils are equal, round and reactive to light, Extraocular movements are intact, glasses. HENT: Normocephalic, Normal hearing. Neck: Supple, Non-tender. Respiratory: Lungs are clear to auscultation, Respirations are non-labored. Cardiovascular: Normal rate, Regular rhythm, No murmur, No gallop, No edema. Gastrointestinal: Soft, Non-tender. Genitourinary: No costovertebral angle tenderness. Lymphatics: No lymphadenopathy neck, axilla, groin. Musculoskeletal: painful ROM back, LLE weakness. Integumentary: Warm, Dry, [place]. Neurologic: Alert, Oriented. Psychiatric: Cooperative, Appropriate mood & affect. Review / Management Results review: Labs (Last four charted values) WBC 6.7 (APR 27) HB 12.6 (APR 27) HCT 38.9 (APR 27) Plt 240 (APR 27) Na 137 (APR 27) K 4.3 (APR 27) Cl 105 (APR 27) CO2 28 (APR 27) BUN 10 (APR 27) Cr 0.90 (APR 27) Glu R 100 (APR 27) Ca 9.2 (APR 27) . Impression and Plan Condition: Stable. documented in this encounter Plan of Treatment Not on file documented as of this encounter Visit Diagnoses Not on filedocumented in this encounter
--- OUTSIDE RECORDS SUMMARY | 2025-03-11 09:22 | XMS_ITS | Encounter Summary ---
Author Organization [employer] Address [address] [place] [id number] Care Team Providers Care Home Care Aide Name Role Phone Unavailable Primary Care Provider Unavailabl e Encounter Details Date Type Department Care Team (Late st Contact Info) Description 04/29/2021 Transcribed Document [facility] [place] [facility] [place] [address] ProviderLatisha MD [address] [place], [place] [id number] Social History Tobacco Use Types Packs/Day Years Used Date Smoking Tobacco: Never Assessed Comments Unknown Sex and Gender Information Value Date Recorded Sex Assigned at Not on file Legal Sex Female 5:30 PM CDT Gender Identity Not on file Sexual Orientation Not on file documented as of this encounter Miscellaneous Notes * Cerner Conversion Note - Latisha ProviderMD - 04/29/2021 2:00 AM CDT Spiritual Care Assessment Entered On: 04/29/2021 7:37 EDT Performed On: 04/29/2021 7:18 EDT by CEDRIC JENNINGS General Information Initial Visit : Yes Referred by : Patient Referral Reason Comment : Pre-surgery visit Ministry Provided to : Patient, Family/Significant other Alevism Preference : Shinto CEDRIC JENNINGS P - 04/29/2021 7:36 EDT Spiritual Assessment Spiritual Assessment Comment/Summary Points : Provided pre-surgery visit and prayer with patient and . Spirital Assessment Comment/Summary Report : SPIRITUAL ASSESSMENT COMMENT/SUMMARY No qualifying data available. CEDRIC JENNINGS - 04/29/2021 7:36 EDT Interventions Emotional Support : Empathic/Engaged listening, Family/Significant other supported Spiritual and Alevism : Prayer shared, Spiritual/Alevism support provided CEDRIC JENNINGS - 04/29/2021 7:36 EDT documented in this encounter Plan of Treatment Not on file documented as of this encounter Visit Diagnoses Not on filedocumented in this encounter
--- OUTSIDE RECORDS SUMMARY | 2025-03-11 09:22 | XMS_ITS | Encounter Summary ---
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 Name Role Phone Unavailable Primary Care Provider Unavailabl e Encounter Details Date Type Department Care Team (Late st Contact Info) Description 05/01/2021 Transcribed Document [facility] [place] [facility] [place] [address] ProviderLatisha MD [address] [place] [address] Social History Tobacco Use Types Packs/Day Years Used Date Smoking Tobacco: Never Assessed Comments Unknown Sex and Gender Information Value Date Recorded Sex Assigned at Not on file Legal Sex Female 5:30 PM CDT Gender Identity Not on file Sexual Orientation Not on file documented as of this encounter Miscellaneous Notes * Cerner Conversion Note - Latisha ProviderMD - 05/01/2021 4:53 PM CDT Discharge Summary, PT Entered On: 05/01/2021 16:56 EDT Performed On: 05/01/2021 16:53 EDT by SHELIA KEVIN, PT Discharge Summary Discharge Summary Provider Notified : Physical Therapy Reason for Discharge : Discharged from hospital Discharged to, Therapy : Home, with family care Discharge Equipment, PT : Commode Commode : Commode, bedside Discharge Summary Comment, PT : pt last seen for PTx session 8/12 PM and noted to be min assist with mobility due to pain except for amb of 40 ft with supervision with RWx and chair follow pain limited her mobility narinder given ed for HEP and verbalized/demo'd same 0/3 LTGs met no STGs set SHELIA KEVIN, PT - 05/01/2021 16:53 EDT Fdc Goals Mobility/Bed Mobility LTG PT Grid Goal #1 Goal #2 Activity : Supine to sit Sit to stand Assist : Independent, complete Independent, modified Date to Meet : 05/13/2021 EDT 05/13/2021 EDT Goal Status : Not met Not met SHELIA KEVIN, PT - 05/01/2021 16:53 EDT SHELIA KEVIN, PT - 05/01/2021 16:53 EDT Ambulation LTG Grid Goal #1 Device : Walker, front wheel Distance : 250' Assist : Independent, modified Date to Meet : 05/13/2021 EDT Goal Status : Not met SHELIA KEVIN, PT - 05/01/2021 16:53 EDT documented in this encounter Plan of Treatment Not on file documented as of this encounter Visit Diagnoses Not on filedocumented in this encounter
--- OUTSIDE RECORDS SUMMARY | 2025-03-11 09:22 | XMS_ITS | Encounter Summary ---
Author Organization [email or web address] Address [address] [place] [address] Care Team Providers Care Transfer Clerk Name Role Phone Unavailable Primary Care Provider Unavailabl e Encounter Details Date Type Department Care Team (Late st Contact Info) Description 05/01/2021 Transcribed Document [facility] [place] Family Medicine [address] [place] [address] ProviderLatisha MD [address] [place] [address] Social History Tobacco Use Types Packs/Day Years Used Date Smoking Tobacco: Never Assessed Comments Unknown Sex and Gender Information Value Date Recorded Sex Assigned at Not on file Legal Sex Female 5:30 PM CDT Gender Identity Not on file Sexual Orientation Not on file documented as of this encounter Miscellaneous Notes * Cerner Conversion Note - Latisha Daugherty MD - 05/01/2021 2:05 PM CDT [facility] [place] [address] ESTER GALVAN :1970 Visit Time:04/29/2021 Your Visit Summary Your Care Team Admitting Physician - JAMI ISLAS MD-SNU Attending Physician - JAMI ISLAS MD-SNU Primary Care Physician - ASAEL GOTTLIEB MD-[facility] Referring Physician - Clifford, UNKNOWN Your Diagnosis Lumbar radiculopathy, Radiculopathy, lumbar region, Radiculopathy, lumbar region These Are Your Goals Patient Discharge Goal Patient Discharge Goal: Home health care Discharge Vitals Temperature 36.6 ??C Heart Rate (Monitored) 104 Respiratory Rate 12 Blood Pressure 110/60 What to do next Instructions From Your Care Team complete instructions per [facility] discharge information sheet, included Diet after Discharge: Resume usual diet as tolerated, _, _ Activity after Discharge: _, _, No strenuous activity Lifting Restrictions: No heavy lifting over 10 pounds Weight Bearing: Full weight bearing Driving after Discharge: Do not drive Showering/Bathing: May shower, No tub bathing, soaking or swimming Wound/Incision Care after Discharge: dry dressing change as needed, _ Home Health Services: [facility]--[phone] Home Equipment: Gabstr--[phone] Discharge Activity: Discharge Activity: No heavy lifting over 10 lbs Diet: Discharge Diet: Resume usual diet as tolerated Wound/Incision Care Instructions: Keep operative site/wound clean and dry Showering/Bathing Instructions: May shower Follow-Up Appointments Follow Up with JAMI ISLAS When 06/01/2021 01:45 PM EDT Comments see card, xrays at 1:45, appt in office at 2:15 Where: [address] [place] [id number]- Follow Up with JAMI ISLAS When 05/14/2021 03:00 PM EDT Comments Appointment has been made for wound check Where: [address] [place] [address]- Business (1) Medications What How Much When Instructions Next Dose albuterol (albuterol CFC free 90 mcg/ inh inhalation aerosol with adapter) 18 Gram EPINEPHrine (EPINEPHrine 0.3 mg injectable kit) 2 Each gabapentin (gabapentin 100 mg oral capsule) 60 Cap tonight ondansetron (Zofran ODT 4 mg oral tablet, disintegrating) 1 Tablet(s) Oral Three Times A Day as needed for Nausea Pickup at [facility] as needed acetaminophen-hydrocodone (acetaminophen-HYDROcodone 325 mg-10 mg oral tablet) 120 Tab acetaminophen-hydrocodone (Salley 10 mg-325 mg oral tablet) 1 Tablet(s) Oral Every 6 Hours as needed for as needed for pain 4:45 acetaminophen-hydrocodone (Salley 7.5 mg-325 mg oral tablet) 1 Tablet(s) Oral Every 4 Hours as needed for as needed for pain Printed Prescription ALPRAZolam (ALPRAZolam 0.25 mg oral tablet) 1 Tablet(s) Oral Three Times A Day as needed for as needed for anxiety as needed ascorbic acid (Vitamin C) 1,000 Milligram(s) Oral Every Day tomorrow balsalazide (balsalazide 750 mg oral capsule) 4 Capsule(s) Oral At Bedtime tonight balsalazide (balsalazide 750 mg oral capsule) 5 Capsule(s) Oral Every Morning tomorrow bisoprolol (bisoprolol 5 mg oral tablet) 0.5 Tablet(s) Oral Every Day evening tonight clopidogrel (clopidogrel 75 mg oral tablet) 1 Tablet(s) Oral Every Day restart on POD 5 usual home schedule dicyclomine (Bentyl) 20 Milligram(s) Oral Four Times A Day as needed for Ulcerative colitis as needed docusate (Dulcolax Stool Softener) 100 Milligram(s) Oral Two Times A Day as needed for as needed for constipation as needed methocarbamol (Robaxin 500 mg oral tablet) 1 Tablet(s) Oral Four Times A Day as needed for Muscle Spasms tonight multivitamin with minerals (Calcium, Magnesium and Zinc oral tablet) 1 Tablet(s) Oral Every Day tomorrow omeprazole (PriLOSEC) 20 Milligram(s) Oral Two Times A Day tomorrow Pharmacy Information [facility]: [address] [address] [address] [facility] [address] [place], [place] [id number] [phone] Take your medications faithfully. Do NOT skip medication. Do NOT stop taking medications without the direction of a physician. Carry a list of your medications with you at all times, and take this medication list with you to your first follow up visit. Report any side effects. Avoid herbal remedies unless discussed with your physician. As part of your treatment plan, your physician may have prescribed a limited course of a controlled substance. This medication may be given to help people with moderate or severe pain or for other medical conditions, but there are risks involved with treatment. Common side effects may include nausea, constipation, drowsiness, sweating, itching, dry mouth, and rash. More serious side effects may include cognitive and motor impairment, like problems with thinking, concentrating, alertness, and movement (e.g. slowed reflexes), and driving and operating heavy machinery can be dangerous. It is important for you to talk to your physician if you have these side effects or questions. These controlled substances can produce physical dependence and be habit-forming if taken for an extended period of time, which means that the body has gotten used to them and may experience withdrawal symptoms if they are abruptly stopped. Withdrawal symptoms can include runny nose, sweating, goose bumps, diarrhea, abdominal cramping, rapid heartbeat, difficulty sleeping, and nervousness. Please dispose of unused and medications per your retail pharmacy guidance. Allergies Advil (Anaphylaxis) Bee Stings (Anaphylaxis) NSAIDs (Anaphylaxis) Flagyl (Lip Swelling) Peanuts (Joint swelling, Joint pain) Seafood (Joint swelling, Joint pain) Strawberries (Sinus drainage, Nasal itching) Tequin (Migraine) morphine (Nausea and vomiting) Immunizations This Visit No Immunizations Found Education Materials Laminectomy, Care After This sheet gives you [...] these instructions at home: Medicines ??? Take fawm-jnj-dnssghf and prescription medicines only as told by [...] keep your urine pale yellow. ? Take katb-jic-yxsoilw or prescription medicines. ? Eat foods that [...] and water are not available, use hand supervisor harvesting. ? Change your dressing as told by [...] Get up to take short walks every 1???2 hours. This is important to improve blood [...] provider. Document Revised: 03/31/2020 Document Reviewed: 03/31/2020 [employer] Patient Education ?? 2020 [employer]. Laminectomy Laminectomy is a surgery to remove: [...] including vitamins, herbs, eye drops, creams, and dqtr-ilv-iuvrwfw medicines. ??? Any problems you or family [...] Up to 2 hours before the procedure ??? you may continue to drink clear liquids, such as water, clear fruit juice, black coffee, and plain tea. Eating and drinking restrictions Follow instructions from your health care provider about eating and drinking, which may include: ??? 24 hours before the procedure ??? stop drinking alcohol. ??? 8 hours before the procedure ??? stop eating heavy meals or foods, such as meat, fried foods, or fatty foods. ??? 6 hours before the procedure ??? stop eating light meals or foods, such as toast or cereal. ??? 6 hours before the procedure ??? stop drinking milk or drinks that contain milk. ??? 2 hours before the procedure ??? stop drinking clear liquids. Medicines ??? Ask [...] tells you to take them. ? Taking choy-wbp-xcuzcqn medicines, vitamins, herbs, and supplements. Tests ??? [...] in your back. The incision may be 2???5 inches (5???13 cm) long, depending on how many vertebrae [...] provider. Document Revised: 03/31/2020 Document Reviewed: 03/31/2020 [employer] Patient Education ?? 2020 [employer]. acetaminophen and hydrocodone (a SEET a MIN oh fen and pérezvinic[employer] sellers TAMMIE done) Hycet, Lorcet, Salley, Verdrocet, Vicodin, Xodol, Zamicet What is the most important information I should know about acetaminophen and hydrocodone? MISUSE OF OPIOID MEDICINE CAN CAUSE ADDICTION, OVERDOSE, OR . Keep the medication in a place where others cannot get to it. Taking opioid medicine during may cause life-threatening withdrawal symptoms in the . Fatal side effects can occur if you use opioid medicine with alcohol, or with other drugs that cause drowsiness or slow your breathing. Stop taking this medicine and call your doctor right away if you have skin redness or a rash that spreads and causes blistering and peeling. What is acetaminophen and hydrocodone? Acetaminophen and hydrocodone is a combination medicine used to relieve moderate to severe pain. Acetaminophen and hydrocodone contains an opioid medicine, and may be habit-forming. Acetaminophen and hydrocodone may also be used for purposes not listed in this medication guide. What should I discuss with my healthcare provider before taking acetaminophen and hydrocodone? You should not use this medicine if you are allergic to acetaminophen or hydrocodone, or if you have: ?? severe asthma or breathing problems; or ?? a blockage in your stomach or intestines. Tell your doctor if you have ever had: ?? breathing problems, sleep apnea (breathing stops during sleep); ?? liver disease; ?? a drug or alcohol addiction; ?? kidney disease; ?? a head injury or seizures; ?? urination problems; or ?? problems with your thyroid, pancreas, or gallbladder. If you use opioid medicine while you are , your baby could become dependent on the drug. This can cause life-threatening withdrawal symptoms in the baby after it is born. Babies born dependent on opioids may need medical treatment for several weeks. Ask a doctor before using opioid medicine if you are . Tell your doctor if you notice severe drowsiness or slow breathing in the nursing baby. How should I take acetaminophen and hydrocodone? Follow all directions on your prescription label. Never take this medicine in larger amounts, or for longer than prescribed. An overdose can damage your liver or cause . Tell your doctor if you feel an increased urge to use more of this medicine. Never share this medicine with another person, especially someone with a history of drug abuse or addiction. MISUSE CAN CAUSE ADDICTION, OVERDOSE, OR . Keep the medicine in a place where others cannot get to it. Selling or giving away this medicine is against the law. Measure liquid medicine carefully. Use the dosing syringe provided, or use a medicine dose-measuring device (not a kitchen spoon). If you need surgery or medical tests, tell the doctor ahead of time that you are using this medicine. You should not stop using this medicine suddenly. Follow your doctor's instructions about tapering your dose. Store at room temperature away from moisture and heat. Keep track of your medicine. You should be aware if anyone is using it improperly or without a prescription. Do not keep leftover opioid medication. Just one dose can cause in someone using this medicine accidentally or improperly. Ask your pharmacist where to locate a drug take-back disposal program. If there is no take-back program, flush the unused medicine down the toilet. What happens if I miss a dose? Since this medicine is used for pain, you are not likely to miss a dose. Skip any missed dose if it is almost time for your next dose. Do not use two doses at one time. What happens if I overdose? Seek emergency medical attention or call the Poison Help line at . An overdose of this medicine can be fatal, especially in a child or other person using the medicine without a prescription. Overdose symptoms may include nausea, vomiting, sweating, severe drowsiness, pinpoint pupils, slow breathing, or no breathing. Your doctor may recommend you get naloxone (a medicine to reverse an opioid overdose) and keep it with you at all times. A person caring for you can give the naloxone if you stop breathing or don't wake up. Your caregiver must still get emergency medical help and may need to perform CPR (cardiopulmonary resuscitation) on you while waiting for help to arrive. Anyone can buy naloxone from a pharmacy or local health department. Make sure any person caring for you knows where you keep naloxone and how to use it. What should I avoid while taking acetaminophen and hydrocodone? Avoid driving or operating machinery until you know how this medicine will affect you. Dizziness or drowsiness can cause falls, accidents, or severe injuries. Do not drink alcohol. Dangerous side effects or could occur. Ask a doctor or pharmacist before using any other medicine that may contain acetaminophen (sometimes abbreviated as APAP). Taking certain medications together can lead to a fatal overdose. What are the possible side effects of acetaminophen and hydrocodone? Get emergency medical help if you have signs of an allergic reaction: hives; difficulty breathing; swelling of your face, lips, tongue, or throat. Opioid medicine can slow or stop your breathing, and may occur. A person caring for you should give naloxone and/or seek emergency medical attention if you have slow breathing with long pauses, blue colored lips, or if you are hard to wake up. In rare cases, acetaminophen may cause a severe skin reaction that can be fatal. This could occur even if you have taken acetaminophen in the past and had no reaction. Stop taking this medicine and call your doctor right away if you have skin redness or a rash that spreads and causes blistering and peeling. Call your doctor at once if you have: ?? noisy breathing, sighing, shallow breathing, breathing that stops; ?? a light-headed feeling, like you might pass out; ?? liver problems--nausea, upper stomach pain, tiredness, loss of appetite, dark urine, salomón-colored stools, jaundice (yellowing of the skin or eyes); ?? low cortisol levels-- nausea, vomiting, loss of appetite, dizziness, worsening tiredness or weakness; o ?? high levels of serotonin in the body--agitation, hallucinations, fever, sweating, shivering, fast heart rate, muscle stiffness, twitching, loss of coordination, nausea, vomiting, diarrhea. Serious breathing problems may be more likely in older adults and in those who are debilitated or have wasting syndrome or chronic breathing disorders. Common side effects include: ?? dizziness, drowsiness, feeling tired; ?? nausea, vomiting, stomach pain; ?? constipation; or ?? headache. This is not a complete list of side effects and others may occur. Call your doctor for medical advice about side effects. You may report side effects to FDA at 4-974-FRM-8948. What other drugs will affect acetaminophen and hydrocodone? You may have breathing problems or withdrawal symptoms if you start or stop taking certain other medicines. Tell your doctor if you also use an antibiotic, antifungal medication, heart or blood pressure medication, seizure medication, or medicine to treat HIV or hepatitis C. Opioid medication can interact with many other drugs and cause dangerous side effects or . Be sure your doctor knows if you also use: ?? cold or allergy medicines, bronchodilator asthma/COPD medication, or a diuretic ('water pill'); ?? medicines for motion sickness, irritable bowel syndrome, or overactive bladder; ?? other opioids--opioid pain medicine or prescription cough medicine; ?? a sedative like Valium--diazepam, alprazolam, lorazepam, Xanax, Klonopin, Versed, and others; ?? drugs that make you sleepy or slow your breathing--a sleeping pill, muscle relaxer, medicine to treat mood disorders or mental illness; ?? drugs that affect serotonin levels in your body--a stimulant, or medicine for depression, Parkinson's disease, migraine headaches, serious infections, or nausea and vomiting. This list is not complete. Other drugs may affect acetaminophen and hydrocodone, including prescription and ibuu-kxe-eleqplv medicines, vitamins, and herbal products. Not all possible interactions are listed here. Where can I get more information? Your doctor or pharmacist can provide more information about acetaminophen and hydrocodone. Remember, keep this and all other medicines out of the reach of children, never share your medicines with others, and use this medication only for the indication prescribed. Every effort has been made to ensure that the information provided by [employer]. ('[employer]') is accurate, up-to-date, and complete, but no guarantee is made to that effect. Drug information contained herein may be time sensitive. [employer] information has been compiled for use by healthcare practitioners and consumers in the [place] and therefore [employer] does not warrant that uses outside of the [place] are appropriate, unless specifically indicated otherwise. [employer]'s drug information does not endorse drugs, diagnose patients or recommend therapy. [employer] drug information is an informational resource designed to assist licensed healthcare practitioners in caring for their patients and/or to serve consumers viewing this service as a supplement to, and not a substitute for, the expertise, skill, knowledge and judgment of healthcare practitioners. The absence of a warning for a given drug or drug combination in no way should be construed to indicate that the drug or drug combination is safe, effective or appropriate for any given patient. [employer] does not assume any responsibility for any aspect of healthcare administered with the aid of information [employer] provides. The information contained herein is not intended to cover all possible uses, directions, precautions, warnings, drug interactions, allergic reactions, or adverse effects. If you have questions about the drugs you are taking, check with your doctor, nurse or pharmacist. Copyright 0526-0813 [employer]. Version: 16.03. Revision Date: 10/21/2020. Emergency Awareness and Preventative Care STROKE is an EMERGENCY Every Minute Counts Act FAST and Check for these signs: FACE Does the face look uneven? ARM Does one arm drift down? SPEECH Does their speech sound strange? TIME Call at any sign of stroke Stroke Risk Factors Atrial Fibrillation (irregular heartbeat) Diabetes Family history of stroke Heart Disease Heavy alcohol use High Blood Pressure High Cholesterol Physical inactivity and obesity Smoking Cigarette Smoking The facts are clear, cigarette smoking will shorten your life. Smoking can cause many illnesses along the way. As a healthcare provider, we recommend that you stop smoking. Assistance with quitting is available by contacting 3-238-AQCYNOW. This is a free resource providing counseling, support, and referral. Or you may contact your personal physician. National Suicide Prevention Lifeline: The National Suicide Prevention Lifeline is a national network of local crisis centers that provides free and confidential emotional support to people in suicidal crisis or emotional distress 24 hours a day, 7 days a week. Don't Wait! Stop a Heart Attack Before it Starts What is a heart attack? A heart attack is damage or to a part of the heart from severely decreased or lack of blood flow to the heart. Over time, arteries can become narrow from the buildup of fat and cholesterol, which is called plaque. The plaque can rupture causing a blood clot to form. When the blood clot forms, the artery can become severely narrowed or completely blocked, causing a heart attack. Heart attack is the leading cause of in the [place]. 85% of muscle damage occurs within the first 2 hours. Delay in the recognition of heart attack symptoms increases the chances of . Know the early symptoms of a heart attack: Nausea Feeling of fullness in chest Jaw Pain Pain that travels down one or both arms Fatigue/being tired Anxiety Back Pain Chest pressure, squeezing, or discomfort Shortness of breath Sweating, or a cold sweat Feeling of impending doom There are unusual signs of a heart attack, too! Women, the elderly, and diabetics may present with atypical symptoms: Fainting/dizziness Weakness Confusion Risk Factors for a Heart Attack Some heart disease risk factors, such as age and family history, cannot be changed. Others, like smoking and lack of exercise, can be changed. Smoking High Cholesterol High Blood Pressure Family History Obesity Age Gender (Males are at higher risk) Lack of Exercise Diabetes Diet Stress Excessive Alcohol Intake If you or someone you know is experiencing the signs and symptoms of a heart attack, DON???T DELAY. Call immediately and seek help. If someone collapses, perform CPR! Do not attempt to drive if you are having symptoms of heart attack. Hands-Only CPR Why Hands-Only CPR? Hands-Only CPR has been shown to be as effective as conventional CPR for cardiac arrests that occur outside of a hospital. Survival depends on immediately receiving CPR from someone nearby. How do you perform Hands-Only CPR? There are two easy steps: Call if you see a teen or adult collapse Push hard and fast in the center of the chest at a beat of 100 beats per minute. Save a life! 4 WAYS TO GET AHEAD OF SEPSIS SEPSIS is a MEDICAL EMERGENCY. Time matters! Infections put you and your family at risk for a life-threatening condition called sepsis. Sepsis is the body's extreme response to an infection. It is life-threatening, and without timely treatment, sepsis can rapidly lead to tissue damage, organ failure, and . Sepsis happens when an infection you already have-in your skin, lungs, urinary tract or somewhere else-triggers a chain reaction throughout your body. 1 PREVENT INFECTIONS Take good care of chronic conditions. Talk to your doctor about getting the recommended vaccines. 2 PRACTICE GOOD HYGIENE Wash your hands frequently. Keep cuts or open sores clean and covered until they are healed. 3 KNOW THE SYMPTOMS Confusion or disorientation Shortness of breath High heart rate Fever, shivering, or feeling very cold Extreme pain or discomfort Clammy or sweaty skin 4 ACT FAST Get medical care IMMEDIATELY if you suspect sepsis or if you have an infection that is not getting better or is getting worse. To learn more about sepsis and how to prevent infections, visit www.cdc.gov/sepsis. Test Results Laboratory or Other Results This Visit (last charted value for your 04/29/2021 visit) Hematology 05/01/2021 3:34 AM WBC: 10.8 K/uL -- Normal range between ( 4.5 and 10.5 ) RBC: 4.17 Million/uL -- Normal range between ( 3.93 and 5.22 ) Hct: 36.4 % -- Normal range between ( 34.1 and 44.9 ) Hgb: 11.4 g/dL -- Normal range between ( 11.2 and 15.7 ) Platelet Count: 199 K/uL -- Normal range between ( 163 and 369 ) MCH: 27.3 pg -- Normal range between ( 25.6 and 32.2 ) MCHC: 31.3 Gram/dL -- Normal range between ( 32.2 and 36.5 ) MCV: 87.3 fL -- Normal range between ( 79.0 and 94.8 ) Slide Review: No Eos %: 1.0 % -- Normal range between ( 0.0 and 7.0 ) [place] #: 0.85 K/uL -- Normal range between ( 0.16 and 1.00 ) Eos #: 0.11 x10(3)/uL -- Normal range between ( 0.00 and 0.80 ) [place] %: 7.9 % -- Normal range between ( 3.0 and 9.0 ) Baso %: 0.5 % -- Normal range between ( 0.0 and 1.5 ) Baso #: 0.05 x10(3)/uL -- Normal range between ( 0.00 and 0.20 ) RDW: 13.2 % -- Normal range between ( 11.7 and 14.9 ) Neut %: 74.7 % -- Normal range between ( 34.0 and 71.0 ) Neut #: 8.04 K/uL -- Normal range between ( 1.56 and 6.13 ) Lymph %: 15.3 % -- Normal range between ( 19.3 and 53.1 ) Lymph #: 1.64 x10(3)/uL -- Normal range between ( 1.00 and 3.90 ) MPV: 10.0 fL -- Normal range between ( 9.4 and 12.4 ) IG#: 0.06 x10(3)/uL -- Normal range between ( 0.00 and 0.05 ) IG%: 0.60 % -- Normal range between ( 0.00 and 0.60 ) Urinalysis 04/27/2021 8:29 AM Urine Nitrite: Negative Urine Leukocyte Esterase: Negative Urine Appearance: Clear Urine Glucose Dipstick: Negative Urine Blood Dipstick: Negative Urine Urobilinogen Dipstick: 0.2 EU/dL Urine Protein Dipstick: Negative Urine Color: Yellow Urine Ketones Dipstick: Negative Urine pH Dipstick: 5.5 -- Normal range between ( 6.0 and 8.0 ) Urine Bilirubin Dipstick: Negative Urine Specific [place]: 1.023 -- Normal range between ( 1.005 and 1.030 ) Urine Type.: U CleanCatch Urine Culture if Indicated: Not Indicated Microbiology 04/27/2021 9:30 AM SARS-CoV-2 (COVID19 PCR): Negative Blood Bank 04/29/2021 7:15 AM ABO/Rh (ECHO): B POS Antibody Screen: Negative ABSC 04/27/2021 8:29 AM ABO/Rh Repeat: B POS General Chemistry 05/01/2021 3:34 AM Creatinine Level: 0.80 mg/dL -- Normal range between ( 0.55 and 1.02 ) Sodium Level: 139 mmol/L -- Normal range between ( 136 and 146 ) Potassium Level: 3.8 mmol/L -- Normal range between ( 3.5 and 5.1 ) Chloride Level: 105 mmol/L -- Normal range between ( 102 and 112 ) Carbon Dioxide Level: 30 mmol/L -- Normal range between ( 21 and 32 ) Anion Gap: 8 -- Normal range between ( 9 and 20 ) Bun/Creatinine: 11.2 -- Normal range between ( 8.0 and 20.0 ) Calcium Level: 9.3 mg/dL -- Normal range between ( 8.4 and 10.1 ) eGFR : >60 mL/min/1.73m2 eGFR NonAfrican: >60 mL/min/1.73m2 Glucose Level: 111 mg/dL -- Normal range between ( 74 and 106 ) Blood Urea Nitrogen: 9 mg/dL -- Normal range between ( 7 and 22 ) Endocrinology 04/29/2021 6:40 AM HCG Urine POC: Negative Diagnostic Radiology 04/29/2021 10:[address] in OR: CR CT in OR Patient Name:ESTER GALVAN I have received and understand this information and was given the opportunity to ask questions. Patient/Performance Improvement Director Name: Patient/Performance Improvement Director Signature: Relationship to Patient: Clinician/Hospital Performance Improvement Director Signature: Date: documented in this encounter Plan of Treatment Not on file documented as of this encounter Visit Diagnoses Not on filedocumented in this encounter
--- OUTSIDE RECORDS SUMMARY | 2025-03-11 09:22 | XMS_ITS | Encounter Summary ---
Author Organization [employer] Address [address] [place] [address] Care Team Providers Care Grades 1 Through 6 Teacher Name Role Phone Unavailable Primary Care Provider Unavailabl e Encounter Details Date Type Department Care Team (Late st Contact Info) Description 04/30/2021 Transcribed Document [facility] [place] [facility] [place] [address] ProviderLatisha MD [address] [place] [address] Social History Tobacco Use Types Packs/Day Years Used Date Smoking Tobacco: Never Assessed Comments Unknown Sex and Gender Information Value Date Recorded Sex Assigned at Not on file Legal Sex Female 5:30 PM CDT Gender Identity Not on file Sexual Orientation Not on file documented as of this encounter Miscellaneous Notes * Cerner Conversion Note - Latisha ProviderMD - 04/30/2021 8:19 AM CDT Pain Assessment Entered On: 04/30/2021 14:03 EDT Performed On: 04/30/2021 13:11 EDT by MICHAEL BENNETT RN Intervention Information: HYDROmorphone Performed by MICHAEL BENNETT RN on 04/30/2021 12:41:00 EDT HYDROmorphone,0.25mg IV Push,Left Lower Forearm,Pain (Severe 7-10) Pain Assessment Pain Assessment : Follow-up assessment Pain Scale Goal : 5 Pain Scale Used : 0-10 Scale Location : Back Pain Improved by Intervention : Yes MICHAEL BENNETT RN - 04/30/2021 14:03 EDT Pain Scale Intensity : 7 MICHAEL BENNETT RN - 04/30/2021 14:03 EDT Image 4 - Images currently included in the form version of this document have not been included in the text rendition version of the form. documented in this encounter Plan of Treatment Not on file documented as of this encounter Visit Diagnoses Not on filedocumented in this encounter
--- OUTSIDE RECORDS SUMMARY | 2025-03-11 09:22 | XMS_ITS | Encounter Summary ---
Author Organization [employer] Address [address] [place] [address] Care Team Providers Care Tile Classifier Name Role Phone Unavailable Primary Care Provider Unavailabl e Encounter Details Date Type Department Care Team (Late st Contact Info) Description 05/01/2021 Transcribed Document [facility] [place] Medicine [facility] [place] [address] ProviderLatisha MD [address] [place] [address] Social History Tobacco Use Types Packs/Day Years Used Date Smoking Tobacco: Never Assessed Comments Unknown Sex and Gender Information Value Date Recorded Sex Assigned at Not on file Legal Sex Female 5:30 PM CDT Gender Identity Not on file Sexual Orientation Not on file documented as of this encounter Miscellaneous Notes * Cerner Conversion Note - Latisha ProviderMD - 05/01/2021 2:20 PM CDT Nursing Discharge Summary Entered On: 05/01/2021 14:21 EDT Performed On: 05/01/2021 14:20 EDT by MICHAEL BENNETT RN Discharge Documentation Discharge Date/Time : 05/01/2021 14:20 EDT Patient Disposition, General : Discharge Discharge To : Home with ambulatory/outpatient follow-up Mode Of Departure, General Discharge : Private vehicle Accompanied By, Discharge : Spouse IV Discontinued : Yes Personal Belongings With Patient : Yes Pt's Own Supply of Medications Returned : No patient supply of medications to return Prescriptions Given to Patient : No Medications Given to Patient : Refused Discharge Instructions Reviewed With, Opportunity For Questions Given : Patient, Spouse Teaching Method : Explanation, Printed materials Teaching Evaluation : Verbalizes understanding MICHAEL BENNETT RN - 05/01/2021 14:20 EDT Electronically signed by [facility] Conversion Memorial Counselor Cerner at 01/04/2023 1:04 PM CDT documented in this encounter Plan of Treatment Not on file documented as of this encounter Visit Diagnoses Not on filedocumented in this encounter
--- OUTSIDE RECORDS SUMMARY | 2025-03-11 09:22 | XMS_ITS | Clinical Summary ---
Author Organization [email or web address] Address [address] [place], [place] [id number] Care Team Providers Care Locator Name Role Phone Unavailable Primary Care Provider [...]
--- OUTSIDE RECORDS SUMMARY | 2025-03-11 09:22 | XMS_ITS | Encounter Summary ---
Author Organization [facility] [employer] Address [address] [place] [address] Care Team Providers Care Horticulturalist Name Role Phone Unavailable Primary Care Provider Unavailabl e Encounter Details Date Type Department Care Team (Late st Contact Info) Description 04/29/2021 Transcribed Document [facility] [place] Family Medicine [address] [place] [address] ProviderLatisha MD [address] [place] [address] Social History Tobacco Use Types Packs/Day Years Used Date Smoking Tobacco: Never Assessed Comments Unknown Sex and Gender Information Value Date Recorded Sex Assigned at Not on file Legal Sex Female 5:30 PM CDT Gender Identity Not on file Sexual Orientation Not on file documented as of this encounter Miscellaneous Notes * Cerner Conversion Note - Latisha ProviderMD - 04/29/2021 3:00 PM CDT Pain Assessment Entered On: 04/29/2021 18:00 EDT Performed On: 04/29/2021 18:54 EDT by MICHAEL BENNETT RN Intervention Information: acetaminophen Performed by MICHAEL BENNETT RN on 04/29/2021 17:54:00 EDT acetaminophen,650mg Oral Pain Assessment Pain Assessment : Follow-up assessment Pain Scale Goal : 5 Location : Back Pain Improved by Intervention : Yes MICHAEL BENNETT RN - 04/29/2021 17:55 EDT documented in this encounter Plan of Treatment Not on file documented as of this encounter Visit Diagnoses Not on filedocumented in this encounter
--- OUTSIDE RECORDS SUMMARY | 2025-03-11 09:22 | XMS_ITS | Encounter Summary ---
Author Organization [email or web address] Address [address] [place] [address] Care Team Providers Care Risk Control Product Liability Director Name Role Phone Unavailable Primary Care Provider Unavailabl e Encounter Details Date Type Department Care Team (Late st Contact Info) Description 05/01/2021 Transcribed Document [facility] [place] [address] [place] [address] ProviderLatisha MD [address] [place] [address] Social History Tobacco Use Types Packs/Day Years Used Date Smoking Tobacco: Never Assessed Comments Unknown Sex and Gender Information Value Date Recorded Sex Assigned at Not on file Legal Sex Female 5:30 PM CDT Gender Identity Not on file Sexual Orientation Not on file documented as of this encounter Miscellaneous Notes * Cerner Conversion Note - Historical ProviderMD - 05/01/2021 10:16 AM CDT Attempt to Treat, PT Entered On: 05/01/2021 10:39 EDT Performed On: 05/01/2021 10:16 EDT by SHEILA KEVIN PT Attempt to Treat Unable to Treat Due To : Patient Refusal Inability to Treat Comment : pt sitting at EOB with spouse present , declined PTx stated I am going home , I feel so much better can I still get a BSC? CM informed pt wants BSC Notification : RN(Yasmin)/PTx/CM SHELIA KEVIN, PT - 05/01/2021 10:34 EDT documented in this encounter Plan of Treatment Not on file documented as of this encounter Visit Diagnoses Not on filedocumented in this encounter
--- OUTSIDE RECORDS SUMMARY | 2025-03-11 09:22 | XMS_ITS | Encounter Summary ---
Author Organization [employer] Address [address] [place] [address] Care Team Providers Care Behavioral Sciences Instructor Name Role Phone Unavailable Primary Care Provider Unavailabl e Encounter Details Date Type Department Care Team (Late st Contact Info) Description 04/27/2021 Transcribed Document [facility] [place] Family Medicine [address] [place] [address] ProviderLatisha MD [address] [place] [address] Social History Tobacco Use Types Packs/Day Years Used Date Smoking Tobacco: Never Assessed Comments Unknown Sex and Gender Information Value Date Recorded Sex Assigned at Not on file Legal Sex Female 5:30 PM CDT Gender Identity Not on file Sexual Orientation Not on file documented as of this encounter Miscellaneous Notes * Cerner Conversion Note - Latisha ProviderMD - 04/27/2021 3:29 PM CDT UM Authorization Entered On: 04/27/2021 15:30 EDT Performed On: 04/27/2021 15:29 EDT by MARY GARBER Aircraft Life Support Fitter Primary Insurance Authorization Authorization and Policy Numbers : Insurance 1 Health Plan[facility] Policy Number: [id number] Authorization Number: Insurance Primary Name : Veronica [id number] Authorization Status-Primary : Opo status approv Authorized Service Begin Date-Primary : 04/29/2021 EDT Observation Authorization Nbr-Primary : [id number] Authorization Comments-Primary : Pt is geoffrey for OUT PT MIS Posterior Fusion CT Guided on 04/29/21 [place] [facility] auth# [id number] per STAR Historical Authorization Comments-Primary : No Authorization Comments Found MARY GARBER, Aircraft Life Support Fitter - 04/27/2021 15:29 EDT documented in this encounter Plan of Treatment Not on file documented as of this encounter Visit Diagnoses Not on filedocumented in this encounter
--- OUTSIDE RECORDS SUMMARY | 2025-03-11 09:22 | XMS_ITS | Encounter Summary ---
Author Organization [employer] Address [facility] [place] [address] Care Team Providers Care Bakery Machine Mechanic Supervisor Name Role Phone Unavailable Primary Care Provider Unavailabl e Encounter Details Date Type Department Care Team (Late st Contact Info) Description 04/29/2021 Transcribed Document [facility] [place] [facility] [place] [address] ProviderLatisha MD [address] [place] [address] Social History Tobacco Use Types Packs/Day Years Used Date Smoking Tobacco: Never Assessed Comments Unknown Sex and Gender Information Value Date Recorded Sex Assigned at Not on file Legal Sex Female 5:30 PM CDT Gender Identity Not on file Sexual Orientation Not on file documented as of this encounter Miscellaneous Notes * Cerner Conversion Note - Latisha ProviderMD - 04/29/2021 4:22 PM CDT Treatment Intervention, PT Entered On: 04/30/2021 11:51 EDT Performed On: 04/30/2021 9:38 EDT by SHELIA KEVIN PT General Information, PT Visit Type, PT : Treatment Note Patient Orders : Order Date Order Ordering 04/29/2021 11:04 Physical Therapy Eval and Treat Ordered By: JAMI ISLAS MD-SNU 04/29/2021 16:22 Physical Therapy Additional Tx Ordered By: JESS ARGUETA PT Active Diagnoses : No Qualifying Diagnoses Therapy Diagnosis, PT : decreased functional mobility and activity tolerance Admission Date : 04/29/2021 06:48 Co-treated by, PT : Occupational Therapist Personal Devices : Personal Devices Dentures, upper Assistive Devices : Assistive Devices No Devices Recorded SHELIA KEVIN, PT - 04/30/2021 11:44 EDT General Status Patient Received Status : Up in chair Treatment Start Time : 04/30/2021 9:05 EDT Patient Left Status : Supine in bed, RN/PCT informed, Family/Visitors at bedside, Communication board completed, All needs met and within reach RN/PCT Informed Comment : yes per RN Yasmin Treatment End Time : 04/30/2021 9:38 EDT Treatment Time : 33 Minute(s) Actual Treatment Time : 33 Minute(s) SHELIA KEVIN PT - 04/30/2021 11:44 EDT Therapeutic Activities Sitting Activities Grid Activity #1 Activities : Reaching (Comment: OTx ed for ADL with NO Bending/twisting pt dressed with supervision and ed on use of adaptive eqipment [SHELIA KEVIN, PT - 04/30/2021 11:44 EDT] ) SHELIA KEVIN PT - 04/30/2021 11:44 EDT Therapeutic Exercises PT Therapeutic Exercise Grid Exercise #1 Exercises : Other: HEP for back sx pt SHELIA KEVIN, PT - 04/30/2021 11:44 EDT Functional Mobility Mobility Grid Sit to Stand : Supervision/set-up Stand to Sit : Supervision/set-up Sit to Supine : Supervision/set-up SHELIA KEVIN PT - 04/30/2021 11:44 EDT Gait Training/Assessment, PT Weight Bearing Status : Full Gait Assistance Level : Supervision Walking Distance : approx 100 ft Ambulatory Devices : Gait belt, Walker, front wheel Gait Deviations : Yes Left Lower Gait Deviation : Maria Antonia, decreased Right Lower Gait Deviation : Maria Antonia, decreased Gait Training Comment : cues to decrease UE use for WB Stair(s) Ascend/Descend Training : Yes Number of Stairs : 5 TWICE Stair Height : 6 inches Stair(s) Assist Devices : None, Gait belt, Rails, one Stair Assist : Supervision Stair Training Comment : step to step format spouse demo'd assist correctly SHELIA KEVIN, PT - 04/30/2021 11:44 EDT Cognitive Treatment, PT Orientation : Oriented x 4 SHELIA KEVIN PT - 04/30/2021 11:44 EDT Edu Topics Physical Therapy Education Grid Balance Training : Returns demonstration Bed Mobility Training : Returns demonstration Gait Training : Returns demonstration Home Program/Exercises : Verbalizes understanding Role of Physical Therapy : Verbalizes understanding Safety : Returns demonstration Stair Training : Returns demonstration Therapeutic Exercises : Verbalizes understanding Transfer Training : Returns demonstration Use of Assistive Device : Returns demonstration HSELIA KEVIN PT - 04/30/2021 11:44 EDT Plan of Care, PT PT Tx Plan/Goals Established w Patient : Yes SHELIA KEVIN PT - 04/30/2021 11:44 EDT Care Home Goals Mobility/Bed Mobility LTG PT Grid Goal #1 Goal #2 Activity : Supine to sit Sit to stand Assist : Independent, complete Independent, modified Date to Meet : 05/13/2021 EDT 05/13/2021 EDT Goal Status : Intial Goal Progressing, continue SHELIA KEVIN, PT - 04/30/2021 11:44 EDT SHELIA KEVIN, PT - 04/30/2021 11:44 EDT Ambulation LTG Grid Goal #1 Device : Walker, front wheel Distance : 250' Assist : Independent, modified Date to Meet : 05/13/2021 EDT Goal Status : Progressing, continue SHELIA KEVIN, PT - 04/30/2021 11:44 EDT Treatment Note Subjective Comment : agreed to PTx/OTx can I put some panties on? Patient's Response to Treatment : good Additional Objective Information : OTx did ADL ed for dressing Assessment : good effort but low endurance with amb today pain is limiting pt narinder to activity does well with amb, just not distance yet good demo of stairs and ADL no goals met Plan for Treatment : cont POC ?? Discharge home today SHELIA KEVIN PT - 04/30/2021 11:44 EDT Pain Assessment Pain Scaled Used : 0-10 Pain scale Pain Score Pre-Intervention : 7 Location : Back, lower, Incisional, Leg, left Onset : Constant SHELIA KEVIN PT - 04/30/2021 11:44 EDT Image 1 - Images currently included in the form version of this document have not been included in the text rendition version of the form. Anticipated Discharge Needs, OT/PT Anticipated Discharge to : Home, with family care Recommend Continued Therapy at Discharge : No SHELIA KEVIN PT - 04/30/2021 11:[address] [facility] PT Charges PT Ther Activities Ea 15 Min : 1 Gait Training Each 15 Min : 1 SHELIA KEVIN PT - 04/30/2021 11:44 EDT documented in this encounter Plan of Treatment Not on file documented as of this encounter Visit Diagnoses Not on filedocumented in this encounter
--- OUTSIDE RECORDS SUMMARY | 2025-03-11 09:22 | XMS_ITS | Encounter Summary ---
Author Organization [employer] Address [address] [place] [address] Care Team Providers Care Senior Science Consultant Name Role Phone Unavailable Primary Care Provider Unavailabl e Encounter Details Date Type Department Care Team (Late st Contact Info) Description 04/29/2021 Transcribed Document [facility] [place] [address] [place] [address] ProviderLatisha MD [address] [place] [address] Social History Tobacco Use Types Packs/Day Years Used Date Smoking Tobacco: Never Assessed Comments Unknown Sex and Gender Information Value Date Recorded Sex Assigned at Not on file Legal Sex Female 5:30 PM CDT Gender Identity Not on file Sexual Orientation Not on file documented as of this encounter Miscellaneous Notes * Cerner Conversion Note - Latisha Daugherty MD - 04/29/2021 12:17 PM CDT Meds to Bed Enrollment Entered On: 04/29/2021 14:33 EDT Performed On: 04/29/2021 12:17 EDT by TALYA DESHPANDE PHARMACIST-MEDICATION RECON Meds to Bed Enrollment Patient Enrollment Decision: : Yes/enroll in meds to bed program TALYA DESHPANDE PHARMACIST-MEDICATION RECON - 04/29/2021 14:33 EDT documented in this encounter Plan of Treatment Not on file documented as of this encounter Visit Diagnoses Not on filedocumented in this encounter
--- OUTSIDE RECORDS SUMMARY | 2025-03-11 09:22 | XMS_ITS | Encounter Summary ---
Author Organization [employer] Address [address] [place] [address] Care Team Providers Care Magento Developer Name Role Phone Unavailable Primary Care Provider Unavailabl e Encounter Details Date Type Department Care Team (Late st Contact Info) Description 05/01/2021 Transcribed Document [facility] [address] [place] [address] Janice Pan MD [address] [facility] [address] [place] [address] Social History Tobacco Use Types Packs/Day Years Used Date Smoking Tobacco: Never Assessed Comments Unknown Sex and Gender Information Value Date Recorded Sex Assigned at Not on file Legal Sex Female 5:30 PM CDT Gender Identity Not on file Sexual Orientation Not on file documented as of this encounter Miscellaneous Notes * Cerner Conversion Note - Janice Pan MD - 05/01/2021 9:25 AM EDT Patient: ESTER GALVAN Age: 51 years Sex: Female : 1970 Associated Diagnoses: None Author: FRANCESCA FUENTES PA-YARI CC: postop medical management S: Pt is doing ok. No f'/c/s. No n/v/d. (+) gas, (-) BM. No CP, SOA, palpitations. No cough or sputum. Urinating well. +post op pain. Using incentive spirometer. HPI: 51 YO female with spinal stenosis who presented to [facility] for lumbar fusion by Dr. Clemons. Pt has failed outpt conservative therapy and elected for surgical intervention. We are asked to follow for postop medical management. Initial visit on floor --- Denies prior stroke or seizure. Denies MS, CHF or cardiac arrhythmia. Denies DM. Denies [...] ovale) Scoliosis Ulcerative colitis PSHx: Tubal ligation ([id number]). Cholecystectomy ([id number]). uterine ablation. neck surgery FHx: Mother - CVA, pancreatic cancer Father - tetrology of [place] Siblings - sister with Hashimotos SHx: No alcohol, tob or illicit drug use. Home Medications (18) Active acetaminophen-HYDROcodone 325 mg-10 mg oral tablet [...] injectable kit gabapentin 100 mg oral capsule Paragon 10 mg-325 mg oral tablet 1 Tab, PRN, Oral, Q6H Paragon 7.5 mg-325 mg oral tablet 1 Tab, PRN, Oral, Q4H PriLOSEC 20 mg, Oral, BID Robaxin 500 mg oral tablet 500 mg = 1 Tab, PRN, Oral, QID Vitamin C 1,000 mg, Oral, Daily Zofran ODT 4 mg oral tablet, disintegrating 4 mg = 1 Tab, PRN, Oral, TID Allergies (9) Active Reaction Advil Anaphylaxis Bee Stings Anaphylaxis NSAIDs Anaphylaxis Flagyl Lip Swelling morphine Nausea and vomiting Peanuts Joint pain Seafood Joint swelling Strawberries Sinus drainage Tequin Migraine PE: Vitals Signs (last 24 hrs) Last Charted Minimum Maximum Temp 98.7 (MAY 01 05:09) 98 (MAY 01 01:00) 98.6 (APR 30:) Mon HR 101 (MAY 01:) 72 (APR 30:) 108 (APR 30 18:16) Resp Rate 14 (MAY 01 05:) 14 (MAY 01:) 18 (APR 30 20:45) SBP 99 (MAY 01:) 98 (APR 30:) 120 (MAY 01:) DBP L 55 (MAY 01:) L 55 (MAY 01:) 71 (APR 30:21) MAP 68 (MAY 01:) 68 (MAY 01:) 89 (APR 30:16) SpO2 97 (MAY 01) L 93 (MAY 01 01:00) 99 (APR 30:) GEN: Alert, awake, NAD; resting in bed, appears much more comfortable today. CV: S1S2, no murmur. No LE edema Resp: CTAB, NL Abd: Soft, NT, ND +BS Skin: no rashes on inspection and palpation. Ext: No LE edema. No joint edema, erythema. Neuro: A&O x 3 Data: Labs (Last four charted values) WBC H 10.8 (MAY 01) 10.0 (APR 30) 6.7 (APR 27) HB 11.4 (MAY 01) L 11.1 (APR 30) 12.6 (APR 27) HCT 36.4 (MAY 01) 35.2 (APR 30) 38.9 (APR 27) Plt 199 (MAY 01) 210 (APR 30) 240 (APR 27) Na 139 (MAY 01) 136 (APR 30) 137 (APR 27) K 3.8 (MAY 01) 4.2 (APR 30) 4.3 (APR 27) Cl 105 (MAY 01) 105 (APR 30) 105 (APR 27) CO2 30 (MAY 01) 26 (APR 30) 28 (APR 27) BUN 9 (MAY 01) 9 (APR 30) 10 (APR 27) Cr 0.80 (MAY 01) 0.80 (APR 30) 0.90 (APR 27) Glu R H 111 (MAY 01) 101 (APR 30) 100 (APR 27) Ca 9.3 (MAY 01) 9.0 (APR 30) 9.2 (APR 27) ECHO --- 2018 -- EF 60% Assessment: spondylolisthesis s/p lumbar fusion left eye pain, likely corneal abrasion UC GERD asthma occ nasuea Plan: OK to discharge from IM standpoint pain meds per surgery bowel regimen at home IS at home zofran sent to pharmacy yesterday for home. Assessment and treatment plan made in conjunction with James Pan MD documented in this encounter Plan of Treatment Not on file documented as of this encounter Visit Diagnoses Not on filedocumented in this encounter
--- OUTSIDE RECORDS SUMMARY | 2025-03-11 09:22 | XMS_ITS | Encounter Summary ---
Author Organization [employer] Address [address] [place] [id number] Care Team Providers Care Open Die Inspector Name Role Phone Unavailable Primary Care Provider Unavailabl e Encounter Details Date Type Department Care Team (Late st Contact Info) Description 04/29/2021 Transcribed Document [facility] [place] [facility] [place] [address] ProviderLatisha MD [address] [place] [address] Social History Tobacco Use Types [...] ProviderMD - 04/29/2021 11:03 AM CDT Evaluation, Occupational Therapy Entered On: 04/29/2021 15:48 EDT Performed On: 04/29/2021 14:22 EDT by KIM STEPHENS OTR/Michelle General Information, OT Visit Type, OT : Initial evaluation Patient Orders : Order Date Order Ordering MD 04/29/2021 11:04 Occupational Therapy Evaluation and Treatme Ordered By: JAMI ISLAS MD-SNU Active Diagnoses : No Qualifying Diagnoses Therapy Diagnosis, OT : decreased independence with ADLs due to weakness Onset of Problem, OT : 04/29/2021 EDT Admission Date : 04/29/2021 06:48 Co-treated by, OT : Physical Therapist Personal Devices : Personal Devices Dentures, upper Assistive Devices : Assistive Devices No Devices Recorded General Information Comment, OT : Diagnosis: L5-S1 TLIF KIM STEPHENS OTR/Michelle - 04/29/2021 15:44 EDT General Status Patient Received Status : Supine in bed Treatment Start Time : 04/29/2021 14:03 EDT Patient Left Status : Sitting edge of bed, RN/PCT informed, Family/Visitors at bedside, All needs met and within reach Treatment End Time : 04/29/2021 14:22 EDT Treatment Time : 19 Minute(s) KIM STEPHENS OTR/Michelle - 04/29/2021 15:44 EDT History and Environment, OT Living Situation, Therapy : Home Patient Lives With : Spouse Persons Assisting Patient at Home : Unknown Home Setup : One story Stairs : Yes Stair Location(s) : Outside Outside Stairs, Number of Steps : 2 KIM STEPHENS OTR/Michelle - 04/29/2021 15:44 EDT Prior LOF Bathing, OT : Independent Prior LOF Bed Mobility : Independent Prior LOF Upper Body Dressing, OT : Independent Prior LOF Lower Body Dressing, OT : Independent Prior LOF Toileting : Independent Prior LOF Transfer : Independent Prior LOF Grooming, OT : Independent Prior LOF for IADLs, OT : Independent KIM STEPHENS OTR/Michelle - 04/29/2021 15:44 EDT Upper Extremity Right UE Active ROM : WFL Right UE Strength : WFL Left UE Active ROM : WFL Left UE Strength : WFL KIM STEPHENS OTR/Michelle - 04/29/2021 15:44 EDT Self Care/Home Management, OT Self Feeding Assist Level, OT : Supervision or set-up Grooming Assist Level, OT : Supervision or set-up Bathing Assist Level, OT : Assist, minimal Upper Body Dressing Assist Level, OT : Supervision or set-up Lower Body Dressing Assist Level, OT : Assist, minimal Toileting Assist Level : Supervision or set-up KIM STEPHENS OTR/Michelle - 04/29/2021 15:44 EDT Functional Mobility Mobility Grid Supine to Sit : Rehab Minimal assistance Sit to Stand : Rehab Minimal assistance Bed to Chair : Supervision/set-up Chair to Bed : Supervision/set-up Stand to Sit : Supervision/set-up KIM STEPHENS OTR/Michelle - 04/29/2021 15:44 EDT Cognition Assessment, OT Orientation : Oriented x 4 KIM STEPHENS OTR/Michelle - 04/29/2021 15:44 EDT Indication Assessment, OT Occupational Therapy Indicated : Yes Problem List, OT : Impaired, bed mobility, Impaired, activities daily living, Impaired functional mobility Potential Barriers, OT : None evident Rehabilitation Potential, OT : Good KIM STEPHENS OTR/Michelle - 04/29/2021 15:44 EDT Plan of Care, OT OT Tx Plan/Goals Established w Patient : Yes OT Frequency Rehab : Five days per week OT Duration Rehab : Fourteen days OT Treatments Planned : Activities of daily living, Functional mobility training, Therapeutic activities KIM STEPHENS OTR/Michelle - 04/29/2021 15:44 EDT Half-Way Goals, OT Grooming LTG Grid Goal #1 Activity : Grooming Assist : Independent, modified Date to Meet : 05/13/2021 EDT Goal Status : Initial goal KIM STEPHENS OTR/Michelle - 04/29/2021 15:44 EDT Bathing LTG Grid Goal #1 Activity : Bathing Assist : Independent, modified Date to Meet : 05/13/2021 EDT Goal Status : Initial goal KIM STEPHENS OTR/Michelle - 04/29/2021 15:44 EDT Dressing, Lower Body LTG Grid Goal #1 Activity : Dressing, Lower Body Assist : Independent, modified Date to Meet : 05/13/2021 EDT Goal Status : Initial goal KIM STEPHENS OTR/Michelle - 04/29/2021 15:44 EDT Toileting LTG Grid Goal #1 Activity : Toileting Assist : Independent, modified Date to Meet : 05/13/2021 EDT Goal Status : Initial goal KIM STEPHENS OTR/Michelle - 04/29/2021 15:44 EDT Toilet Transfer LTG Grid Goal #1 Activity : Toilet Transfer, Ambulatory Assist : Independent, modified Date to Meet : 05/13/2021 EDT Goal Status : Initial goal KIM STEPHENS OTR/Michelle - 04/29/2021 15:44 EDT Bed Mobility/ Bed Transfer LTG Grid Goal #1 Activity : Bed Mobility/Bed Transfer Assist : Independent, modified Date to Meet : 05/13/2021 EDT Goal Status : Initial goal KIM STEPHENS OTR/Michelle - 04/29/2021 15:44 EDT Treatment Note Subjective Comment : Pt agreeable Patient's Response to Treatment : Pt tolerated evaluation well Additional Objective Information : Pt supine upon arrival. Pt min A supine to sit. Pt ambulated in room and hallway with SBA-min A using RWx. Pt returned to room, attempted to void but unable to. Pt left EOB with needs met and CL in reach. Assessment : Pt will benefit from OT services during hospital admission Plan for Treatment : See goals KIM STEPHENS OTR/Michelle - 04/29/2021 15:44 EDT Pain Assessment Pain Score Pre-Intervention : 8 KIM STEPHENS OTR/L - 04/29/2021 15:44 EDT Image 1 - Images currently included in the form version of this document have not been included in the text rendition version of the form. [facility] OT Charges OT Eval Low Complexity : 1 KIM STEPHENS OTR/Michelle - 04/29/2021 15:44 EDT documented in this encounter Plan of Treatment Not on file documented as of this encounter Visit Diagnoses Not on filedocumented in this encounter
--- OUTSIDE RECORDS SUMMARY | 2025-03-11 09:22 | XMS_ITS | Encounter Summary ---
Author Organization [employer] Address [address] [place] [address] Care Team Providers Care Consultants Intern Name Role Phone Unavailable Primary Care Provider Unavailabl e Encounter Details Date Type Department Care Team (Late st Contact Info) Description 04/29/2021 Transcribed Document [facility] [place] [facility] [address] [place] [address] ProviderLatisha MD [address] [place] [address] Social History Tobacco Use Types [...] AM CDT Pain Assessment Entered On: 04/29/2021 20:34 EDT Performed On: 04/29/2021 21:00 EDT by Nanette Maria LPN Intervention Information: HYDROmorphone Performed by Nanette Maria LPN on 04/29/2021 20:30:00 EDT HYDROmorphone,0.5mg IV Push,Left Hand,Pain (Severe 7-10) Pain Assessment Pain Assessment : Follow-up assessment Pain Scale Goal : 5 Pain Scale Used : 0-10 Scale Location : Back Onset : Acute Quality : Spasms Pain Radiation : No Pain Worsened by : Movement Pain Improved by : Repositioning Pain Intervention, Non-Drug : Positioning Opioid Adverse Effects : None Pain Improved by Intervention : Yes Nanette Maria LPN - 04/29/2021 20:33 EDT Pain Scale Intensity : 5 Nanette Maria LPN - 04/29/2021 20:33 EDT Image 4 - Images currently included in the form version of this document have not been included in the text rendition version of the form. documented in this encounter Plan of Treatment Not on file documented as of this encounter Visit Diagnoses Not on filedocumented in this encounter
--- OUTSIDE RECORDS SUMMARY | 2025-03-11 09:22 | XMS_ITS | Encounter Summary ---
Author Organization [employer] Address [address] [place] [address] Care Team Providers Care Rental Sales Agent Name Role Phone Unavailable Primary Care Provider Unavailabl e Encounter Details Date Type Department Care Team (Late st Contact Info) Description 04/24/2021 Transcribed Document [facility] [place] [address] [place] [address] ProviderLatisha MD [address] [place] [address] Social History Tobacco Use Types Packs/Day Years Used Date Smoking Tobacco: Never Assessed Comments Unknown Sex and Gender Information Value Date Recorded Sex Assigned at Not on file Legal Sex Female 5:30 PM CDT Gender Identity Not on file Sexual Orientation Not on file documented as of this encounter Miscellaneous Notes * Cerner Conversion Note - Latisha ProviderMD - 04/24/2021 3:30 PM CDT PAT Adult Entered On: 04/24/2021 15:33 EDT Performed On: 04/24/2021 15:30 EDT by Charanjit Brandt Rn Vital Measurements Temperature Source : Temporal artery scanning Temperature, Fahrenheit : 98.3 Deg F Clinical Temperature, C : 36.8 Deg C Pulse Method : Pulse Oximetry Peripheral Pulse Rate : 64 bpm Respiratory Rate : 18 Breaths/Min Systolic Blood Pressure : 99 mmHg Diastolic Blood Pressure : 67 mmHg Oxygen Saturation : 99 % Oxygen Therapy Mode : Room air Arleth Curry Rn - 04/27/2021 8:23 EDT Height and Weight, Clinical Dosing Height Source : Measured Height Entry Format : [facility] Height, Feet : 5 ft(Converted to: 152 cm, 60 Inch) Height, Inches : 6 Inch(Converted to: 0 ft 6 Inch, 15.24 cm) Clinical Height : 167.64 cm Weight Source : Standing scale Weight Entry Format : [facility] Clinical Dosing Weight : 79.09 kg Weight, Pounds : 174 lb Body Surface Area (BSA) : 1.89 m2 Body Mass Index : 28.1 kg/m2 (HI) [place] Body Weight : 59 kg Arleth Curry Rn - 04/27/2021 8:15 EDT Health Histories Smoking Status : Former smoker, quit more than 30 days ago Smokeless Tobacco Status : Never Implant/Device Type, Screedman/Laborer and Model : hardware in neck Charanjit Brandt Rn - 04/24/2021 15:30 EDT Social History (As Of: 04/24/2021 15:33:28 EDT) Tobacco: Former smoker, quit more than 30 days ago Smoking Status. Never Smokeless Tobacco Status. None Smokeless Tobacco Use History. Last Used: quit about 15 years ago . Second Hand Smoke Exposure: No. (Last Updated: 04/24/2021 15:30:11 EDT by Charanjit Brandt, Rn) Alcohol: Alcohol Use History Yes. Use in Last 12 Months: Yes. Alcohol Use Comment maybe three times a year . (Last Updated: 04/24/2021 15:30:11 EDT by Charanjit Brandt, Rn) Substance Abuse: Drug Use Hx: No. Use in Last 12 Months: No. (Last Updated: 04/24/2021 15:30:11 EDT by Charanjit Brandt Rn) Infectious Disease History Has the patient ever [...] Chicken pox/Shingles, MRSA Tuberculosis Symptoms : None Arleth Curry Rn - 04/27/2021 8:15 EDT COVID19 PreProcedure Screening Has patient been isolated since the test : No Exposed to COVID19 symptoms since test? : No Carol Ga RN - 04/29/2021 7:00 EDT Is this an Emergent or Add on Procedure? : No Date PreProcedure COVID-19 test known? : Yes Date of PreProcedure COVID-19 : 04/27/2021 EDT Arleth Curry Rn - 04/27/2021 8:15 EDT Anesthesia/Transfusion History Anesthesia History Comment : Dysphagia Charanjit Brandt Rn - 04/28/2021 13:23 EDT Family History of Anesthesia Reaction : No prior transfusion(s) Blood Transfusion Acceptable to Patient : Yes Transfusion History : Prior anesthesia without reaction Family History of Anesthesia Reaction : None Charanjit Brandt Rn - 04/24/2021 15:30 EDT Functional Assessment Functional ADL Evaluation Index EBN Bathing : Independent (2) Dressing : Independent (2) Toileting : Independent (2) Transferring Bed or Chair : Independent (2) Continence : Independent (2) Feeding : Independent (2) Charanjit Brandt Rn - 04/24/2021 15:30 EDT ADL Index Score : 12 Charanjit Brandt Rn - 04/24/2021 15:30 EDT Advance Directive Patient has Advance Directive *Q : No, patient refuses Advance Directive information Charanjit Brandt Rn - 04/24/2021 15:30 EDT Spiritual/Cultural Needs Any Spiritual/Cultural Needs or Requests : Yes Spiritual/Cultural Needs Comment : 04/29 [place] Preference : Rastafarian Spiritual/Cultural Needs Comment : 04/29 Charanjit Brandt Rn - 04/24/2021 15:30 EDT [place] Suicide Severity Rating Scale (C-SSRS) CSSRS Past Month Wish to be : No CSSRS Past Month Suicidal Thoughts : No CSSRS Lifetime Suicide Behavior : No Suicide Severity Rating Score : 0 Suicide Severity Rating : No Additional Care Required at this time Charanjit Brandt Rn - 04/24/2021 15:30 EDT Psychosocial History Currently in Unsafe Situation : No Charanjit Brandt Rn - 04/24/2021 15:30 EDT General Info Legal Guardian : Spouse Support Person/Patient Analytical Sciences Director : Yes Support Person/Pt Rep Name : Hector Bernardo - Support Person/Pt Rep Contact Information : [phone] Want Family/Rep/Phys Notified of Admit : No Charanjit Brandt Rn - 04/24/2021 15:30 EDT Emergency Contact #1 : Hector Bernardo Emergency Contact #1 Emergency Contact #1 Relationship : Arleth Curry Rn - 04/27/2021 8:23 EDT Emergency Contact #2 : ` Emergency Contact #2 Phone Number : ` Emergency Contact #2 Relationship : ` Information Obtained From : Patient Primary Language : Italian Communication Barrier : None Ap Processor Needed : No Charanjit Brandt Rn - 04/24/2021 15:30 EDT Adrian Scale Adrian Sensory Perception : No impairment Adrian Moisture : Rarely moist Adrian Activity : Walks occasionally Adrian Mobility : Slightly limited Adrian Nutrition : Adequate Adrian Friction and Shear : No apparent problem Adrian Score : 20 Charanjit Brandt Rn - 04/24/2021 15:30 EDT Sleep Apnea Risk Assmt BMI Greater Than 35 kg/m2 : No Neck Circumference Greater Than 40 cm : No STOP-BANG Sleep Apnea Risk Level Score : 1 Arleth Curry Rn - 04/27/2021 8:15 EDT Hx of Obstructive Sleep Apnea Diagnosis : No Snore Loudly : No Tired, Fatigued, or Sleepy During Day : Yes Observed Stopping Breathing During Sleep : No Have/Are Being Treated for Hypertension : No Age over 50 Years Old : No Gender Male : No Charanjit Brandt Rn - 04/24/2021 15:30 EDT documented in this encounter Plan of Treatment Not on file documented as of this encounter Visit Diagnoses Not on filedocumented in this encounter
[2025-03-11 09:30] LABS: Basophils # 0.1 K/mm3 (0-0.2); Basophils % 0.8 % (0.1-2.0); Eosinophils # 0.2 Kmm3 (0.0-0.4); Eosinophils % 2.4 % (0.1-12.0); Hematocrit 41.2 % (37.0-47.0); Hemoglobin 13.1 g/dL (12.2-16.2); Immature Granulocytes # 0.05 10^3uL; Immature Granulocytes % 0.6 %; Lymphocytes # 2.9 K/mm3 (0.7-4.5); Lymphocytes % 36.6 % (10-50); Mean Corpuscular HGB Conc 31.8 g/dL (31.8-35.4); Mean Corpuscular Hemoglobin 27.8 pg (27.0-31.2); Mean Corpuscular Volume 87.5 fl (81-99); Mean Platelet Volume 9.8 fl (7.4-10.4); Monocytes # 0.5 K/mm3 (0.1-1.0); Monocytes % 6.7 % (1.7-9.3); Neutrophils # 4.1 K/mm3 (1.8-7.8); Neutrophils % 52.9 % (37.0-80.0); Nucleated Red Blood Cells # 0 10^3/uL; Nucleated Red Blood Cells % 0 %; Platelet Count 233 K/mm3 (142-424); Red Blood Count 4.71 M/mm3 (4.20-5.40); Red Cell Distribution Width 13.1 % (11.5-17.5); Red Cell Distribution Width-SD 41.5 fL; White Blood Count 7.8 K/mm3 (4.8-10.8)
[2025-03-11 10:15] LABS: Albumin Level 4.3 g/dl (3.5-5.0); Chloride 100 mmol/L (98-107)
[2025-03-11 10:16] LABS: Potassium 4.2 mmoL/L (3.5-5.1); Sodium 139 mmol/L (136-145)
[2025-03-11 10:18] LABS: Alanine Aminotransferase 20 U/L (12-78); Anion Gap 11.2 mEq/L (5-15); Aspartate Amino Transferase 25 U/L (14-36); Bilirubin,Unconjugated 0.4 mg/dL (0.0-1.1); Blood Urea Nitrogen 14 mg/dl (7-17); Carbon Dioxide 32 mmol/L (22.0-30.0); Estimated Glomerular Filt Rate 66 ml/min (>60); GFR (African American) 80 ML/MIN (>60)
[2025-03-11 10:19] LABS: Alkaline Phosphatase 70 U/L (38-126); Bilirubin,Direct 0.1 mg/dl (0.0-0.4); Bilirubin,Indirect 0.4 mg/dL (0.0-0.9); Bilirubin,Total 0.5 mg/dl (0.2-1.3); Calcium 9.4 mg/dl (8.4-10.2); Chol/HDL Ratio 4.5 (1-3.5); Cholesterol 227 mg/dl (140-200); Glucose 95 mg/dl (74-100); HDL Cholesterol 50 mg/dl (40-60); Magnesium 2.5 mg/dl (1.6-2.3); Total Protein,Serum 7.3 g/dl (6.3-8.2); Triglycerides 170 mg/dl (30-150); VLDL Cholesterol 34 mg/dL (0-40)
[2025-03-11 10:28] LABS: Free T4 (Free Thyroxine) 1.12 ng/dl (0.78-2.19)
[2025-03-11 10:30] LABS: Direct LDL Cholesterol 126.94 mg/dL (100-129)
[2025-03-11 10:50] LABS: Thyroid Stimulating Hormone 4.19 uIU/mL (0.465-4.68)
== END 2025-03-11 23:59 | disposition home or self-care (01) ==
LOC: LAB 09:06
PROVIDERS: PCP Family Medicine; Visit Provider Nurse Practitioner
DX: R06.02 Shortness of breath (principal); R63.5 Abnormal weight gain; R53.83 Other fatigue
CPT/HCPCS: 36415; 80048; 80061; 80076; 83735; 84439; 84443; 85025

== ENCOUNTER 2025-03-28 06:24 | Outpatient (CLI) | payer BC, SELFPAY ==
--- NOTE | 2025-03-28 | CA_ITS ---
APPROVED REPORT Exam: Pharmacologic Technologist: Ashleigh Davis Ht: 5 ft 5 in Wt: 172 lbs BSA: 1.86 m2 Medical History Medications: albuterol, alprazolam, clopidogrel, gabapentin, tylenol, methacarbamol, omeprazole. Stress Test Details Test: Lexandres Reason for pharmacologic stress test: physical limitation. HR Resting HR: 82 bpm Max Heart Rate (APMHR): 168.023198 bpm Max HR Achieved: 105 bpm Target HR (85% APMHR): 142.852678 bpm % of APMHR: 62.50 Recovery HR: 82 bpm BP Resting BP: 126.0/85.0 mmHg Max BP: 155.0/88.0 mmHg Recovery BP: 127.0/84.0 mmHg ECG Resting ECG: SR. No isch or ectopy. Stress ECG Conclusion Symptoms: chest tightness. Arrhythmias/Ectopy: None. ST-T Changes: Lexiscan. Electronically signed by : Jess Chua MD 03/29/2025 17:59:09
--- OUTSIDE RECORDS SUMMARY | 2025-03-28 06:27 | XMS_ITS | Continuity of Care Document ---
Author Organization [facility] in [facility] Address [address] [facility] [address] [place] [address] Care Team Providers Care Cryptologic Support Specialist Name Role Phone Steven KRUSE Primary Care Provider JAMI ISLAS Referring Provider Assessment No assessment recorded. Plan of Treatment Reminders Order Date Submit Date Provider Last Modified By Organization Details Last Modified Time Details Appointments FOLLOW UP 15 2024 11:00A Oscar GONZALEZ APRN Not available Not available Not available Lab None recorded . Referral None recorded . Procedures None recorded . Surgeries None recorded . Imaging None recorded . Medication Orders None recorded . Patient TargetsNo targets recorded. Patient InstructionsNo instructions recorded. Reason for Referral None Reported. Problems Name Problem SNOMED Code Status Onset Date Resolution Date Notes Provider Name and Address Organization Details Recorded Time Lumbar spondylosi s 826740394 Active 2023 [facility] rodriguez [facility] 4 13:36:13 Inflammati on of sacroiliac joint 54350576 Active 2023 [facility] 4 13:36:13 Bilateral lower limb piriformis syndrome 9598283173708 9104 Active 2023 [facility] rodriguez [facility] 4 12:31:29 Chronic pain 93958627 Active 2023 [facility] 4 12:31:29 Bilateral sacroiliit is Active 2023 Josy Viramontes null, [place] - [facility] 4 09:08:07 Cervical radiculopa thy 61172596 Active 2024 Kate Blackwell null, [place] - [facility] 5 08:20:12 Right cervical root neuropathy 8343925954002 9108 Active 2024 Eileen Dejesus r null, [place] - [facility] 5 16:02:12 Cervical spondylosi s 896841420 Active 2024 Eileen Dejesus r null, [place] - [facility] 5 16:02:12 Lumbar radiculopa thy 474852974 Active 2022 eloise blackmon null, [place] - [facility] 3 15:22:15 Overweight 042117467 Active 2022 [facility] 3 10:10:58 Problem Notes None recorded. Procedures Surgical History Date Name Laterality Status Provider Name and Address Organization Details Recorded Time 02/06/20 25 SI Joint Injection (Fluoro) completed MARQUISE LOUISE MD [address] [place] [address], [id number], [place] - [facility] 02/05/2025 12:56:12 11/27/19 25 Cervical Epidural Steroid Injection: Interlaminar completed Kate Blackwell [place] - [facility] 11/26/2024 08:21:28 08/06/20 24 SI Joint Injection (Fluoro) completed MARQUISE LOUISE MD [address] [place] [address], [id number], [place] - [facility] 08/06/2024 09:34:08 03/08/20 24 SI Joint Injection (Fluoro) completed Coco Rodarte [place] - [facility] 03/08/2024 16:29:24 10/11/19 23 SI Joint Injection (Fluoro) completed Coco Rodarte [place] - [facility] 10/11/2022 08:37:22 04/19/20 21 Back Surgery completed eloise blackmon [place] - [facility] 10/05/2022 15:44:17 03/09/20 Lumbar Transforaminal Epidural Steroid Injection (1 Level Unilateral): completed Niraj Lr MD [address] [place] [address], [phone], [facility] 03/09/2021 09:03:08 Cervical Spine Surgery completed Kike ROSENTHAL [facility] 03/09/2021 08:32:03 cholecystectomy completed Kike ROSENTHAL [facility] 03/09/2021 08:32:24 cryosurgery completed Kike ROSENTHAL [facility] 03/09/2021 08:32:50 Imaging Results None recorded. Procedure Notes None recorded. Medical Equipment None Reported. Allergies Allergen ID Allergen Name Allergen Category Reaction Reaction Severity Criticality Documentation Date Start Date Code Code System Note Provider Name and Address Organization Details Recorded Time 479532 Non-stero idal anti-infl ammatory agent (product) medicatio n Not available Not available Not available 03/09/2021 92900 005 SNOMED [facility] 08:24:02 322854 morphine medicatio n Not available Not available Not available 03/09/2021 7052 RxNorm [facility] 08:24:56 590320 Tequin medicatio n Not available Not available Not available 03/09/2021 41143 4 RxNorm [facility] 08:25:21 009333 Flagyl medicatio n Not available Not available Not available 03/09/2021 10960 6 RxNorm [facility] 08:28:32 Medications Name Sig Start Date Stop Date Status Note LastModified by Organization Details LastModified Time methocarbam ol 500 mg tablet TAKE 1 TABLET BY MOUTH THREE TIMES DAILY NEEDED FOR muscle SPASMS active Not Available Not Available No t Available prednisone 10 mg tablet 02/15 completed Not Available Not Available Not Available desoximetas one 0.25 % topical cream 10/10 completed Not Available Not Available Not Available lidocaine 5 % topical cream Apply by topical route for 7 days. 10/10 completed Not Available Not Available Not Available fluconazole 150 mg tablet Take by oral route for 1 day. active Not Available Not Available No t Available valacyclovi r 1 gram tablet Take by oral route for 7 days. active Not Available Not Available No t Available prednisone 20 mg tablet 01/02 completed Not Available Not Available Not Available phentermine 37.5 mg tablet Take by oral route for 30 days. active Not Available Not Available No t Available clopidogrel 75 mg tablet Take by oral route for 90 days. active Not Available Not Available No t Available sulfamethox azole 800 mg-trimetho prim 160 mg tablet 02/15 completed Not Available Not Available Not Available hydrocodone 10 mg-acetamin ophen 325 mg tablet TAKE 1 TABLET BY MOUTH EVERY 6 HOURS NEEDED FOR PAIN active Not Available Not Available No t Available bisoprolol fumarate 5 mg tablet Take by oral route for 90 days. active Not Available Not Available No t Available alprazolam 0.25 mg tablet TAKE 1 TABLET BY MOUTH EVERY 6 TO 8 HOURS NEEDED FOR anxiety active Not Available Not Available No t Available dicyclomine 20 mg tablet Take by oral route for 90 days. active Not Available Not Available No t Available benzonatate 100 mg capsule active Not Available Not Available Not Available hydrocodone 7.5 mg-acetamin ophen 325 mg tablet Take 1 tablet every 6 hours by oral route as needed. 03/09 completed Not Available Not Available Not Available triamcinolo ne acetonide 55 mcg nasal spray aerosol INSTILL 2 SPRAYS INTO EACH NOSTRIL ONCE A DAY active Not Available Not Available No t Available balsalazide 750 mg capsule 10/05 completed Not Available Not Available Not Available omeprazole 20 mg capsule,del ayed release Take by oral route for 90 days. active Not Available Not Available No t Available mupirocin 2 % topical ointment Apply by topical route for 10 days. 10/10 completed Not Available Not Available Not Available gabapentin 100 mg capsule TAKE 1 CAPSULE BY MOUTH TWICE DAILY active Not Available Not Available No t Available epinephrine 0.3 mg/0.3 mL injection, auto-inject or Take by injection route for 2 days. active Not Available Not Available No t Available methylpredn isolone 4 mg tablets in a dose pack TAKE DIRECTED ON PACK FOR 6 DAYS active Not Available Not Available No t Available albuterol sulfate HFA 90 mcg/actuati on aerosol inhaler INHALE 2 PUFFS BY MOUTH EVERY 4 HOURS NEEDED FOR WHEEZING active Not Available Not Available No t Available cefdinir 300 mg capsule 03/09 completed Not Available Not Available Not Available doxycycline hyclate 100 mg tablet 01/02 completed Not Available Not Available Not Available clindamycin 1 % lotion active Not Available Not Available N ot Available duloxetine 60 mg capsule,del ayed release Take by oral route for 30 days. active Not Available Not Available No t Available mesalamine 1,000 mg rectal suppository 10/05 completed Not Available Not Available Not Available mesalamine ER 0.375 gram capsule,ext ended release 24 hr 10/05 completed Not Available Not Available Not Available budesonide DR-ER 9 mg tablet,wilman yed and extended release TAKE ONE TABLET BY MOUTH DAILY active Not Available Not Available No t Available mesalamine 400 mg capsule (with delayed release tablets inside) Take by oral route for 90 days. active Not Available Not Available No t Available Linzess 72 mcg capsule Take by oral route for 30 days. 10/10 completed Not Available Not Available Not Available ID NOW COVID-19 Test Kit TEST DIRECTED TODAY 10/05 completed Not Available Not Available Not Available Entyvio Pen 108 mg/0.68 mL subcutaneou s pen injector active Not Available Not Available Not Available Vitals None Recorded Social History Question Answer Notes LastModified by Organizat ion Details LastModified Time Tobacco Smoking Status Former Smoker [facility] 03/09/2021 08:30:13 Do You Have An Advance Directive? Yes [email or web address] Information n ot available 10/05/2022 What Is Your Level Of Caffeine Consumption? Moderate [email or web address] Information not available 10/05/2022 How Much Tobacco Do You Chew? None [email or web address] Information not available 10/05/2022 In The 14 Days Before Symptom Onset, Have You Had Close Contact With A Laboratory-confirm ed COVID-19 While That Case Was Ill? No [email or web address] Information n ot available 10/05/2022 In The 14 Days Before Symptom Onset, Have You Had Close Contact With A Person Who Is Under Investigation For COVID-19 While That Person Was Ill? No [email or web address] Information not available 10/05/2022 Are You Deaf Or Do You Have Serious Difficulty Hearing? No [email or web address] Information not available 10/05/2022 What Type Of Diet Are You Following? REGULAR [email or web address] Information n ot available 10/05/2022 Which Illicit Or Recreational Drugs Have You Used? None [email or web address] Information not available 10/05/2022 Education 4 Year College [email or web address] Information not available 10/05/2022 What Is The Highest Grade Or Level Of School You Have Completed Or The Highest Degree You Have Received? NZ66036-7 [email or web address] Information not available 10/05/2022 How Many Times Per Week Do You Exercise? 3-4 Times Per Week [email or web address] Information not available 10/05/2022 Hard Of Hearing Or Deaf In One Or Both Ears? No [email or web address] Information not available 10/05/2022 Prescription Drug Abuse No Information not available 03/09/2021 Disability No Information no t available 03/09/2021 History Of Sexual Abuse No Information not available 03/09/2021 Marital Status Informatio n not available 03/09/2021 What Was The Date Of Your Most Recent Tobacco Screening? 02/16/2024 [email or web address] Information not available 02/16/2024 How Much Tobacco Do You Smoke? No [email or web address] Information not available 10/05/2022 General Stress Level Medium [email or web address] Information not available 10/05/2022 Do You Have Difficulty Walking Or Climbing Stairs? Yes [email or web address] Information not available 10/05/2022 Sex: Unknown Functional Status Question Answer Note LastModified by Organizat ion Details LastModified Time How many times per week do you consume alcohol? <1 time per week [email or web address] Information not available 10/05/2022 Do you use any illicit or recreational drugs? No [email or web address] Information not available 10/05/2022 What is your level of alcohol consumption? Occasional Information not available 03/09/2021 Do you or have you ever used smokeless tobacco? Never used smokeless tobacco [email or web address] Information not available 10/05/2022 Are you currently employed? Yes [email or web address] Information not available 10/05/2022 Are you able to walk? YESWOREST [email or web address] Information not available 10/05/2022 Do you have difficulty doing errands alone? 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 Yes [email or web address] Information not available 10/05/2022 Do you or have you ever used e-cigarettes or vape? Never used electronic cigarettes [email or web address] Information not available 10/05/2022 What is your exercise level? Moderate [email or web address] Information not available 10/05/2022 Mental Status Question Answer Note LastModified by Organization D etails LastModified Time Do you have difficulty concentrating, remembering or making decisions? No [email or web address] Information no t available 10/05/2022 Family History Relationship Description Onset Age of this Age Resolved Age Notes LastModified by Organization Details LastModified Time Mother Cerebrovascu lar accident [email or web address] Not available 15:22:42 Mother Hypertensive disorder [email or web address] Not available 2022 15:22:42 Father Heart disease [email or web address] Not available 2022 15:22:42 Father Hypertensive disorder [email or web address] Not available 2022 15:22:42 Medical History Condition Response Bipolar Disease N Coronary Artery Disease N Gout N Atrial Fibrillation N Head Trauma/Injury N Depression N COPD N Anxiety Disorder Y Acid Reflux (GERD) N Cancer N Stroke N Rheumatoid Arthritis N Headaches Y Fibromyalgia N Kidney Disease N DVT N Peptic Ulcer Disease N Bleeding Disorder N CHF N AIDS/HIV N Asthma Y Substance Abuse N Hepatitis N Pulmonary Embolism N Chronic Low Back Pain Y Seizure Disorder N Thyroid Disease N Hernia N Skin Disorder N High Cholesterol N Liver Disease N Autoimmune Disease N Osteoarthritis N Neurosurgery N Anemia Y Heart Attack ([place]) N Diabetes N Cardiomyopathy N Inflammatory Bowel Disease N Dementia N Sleep Apnea N Heart Disease Y Hypertension N Osteoporosis N Gynecological HistoryNo gynecological history recorded. Obstetrics History GPAL:G 0 P 0 0 0 0 Past Encounters Encounter ID Performer Location Encounter Start Date Encounter Closed Date Diagnosis/Indication Diagnosis SNOMED-CT Code Diagnosis ICD10 Code Diagnosis Note [id number] MARQUISE LOUISE MD [place] [address] [place] [address] 02/05/2025 10:03:51 02/05/2025 11:25:20 Inflammation of sacroiliac joint 16340158 M46.1 Health Concerns Section Related Observation LastModified by Organization Detai ls LastModified Time None Recorded Concern Status LastModified by Organization Details LastModified Time None Recorded Payers Encounter Date Sequence Insurance Name Policy Number Policy Bernstein Covered Member ID Bernstein Member ID Guarantor Name 02/05/2025 1 [place] [id number] Ester Bernardo [id number] Ester Bernardo OBGyn Episode No OBEpisode recorded.
--- OUTSIDE RECORDS SUMMARY | 2025-03-28 06:27 | XMS_ITS | Data Portability ---
Author Organization [facility], [facility] Address [address] [address] Care Team Providers Care Maintenance Inspector Name Role Phone Steven KRUSE Primary Care Provider JAMI CLEMONS Referring Provider Assessment Encounter Date Assessment Date Assessment LastModified by Organization Details LastModified Time 10/10/2024 10/10/2024 Interval history : Ms. Bernardo is a 54-year-old female here for follow-up after a therapeutic bilateral SI joint injection completed over 2 months ago on 08/06/2024. She reports about 85% improvement is very pleased in regard to this. This can be repeated in October 2024 if needed. Historically she is gone several months without needing to repeat the injection. 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 There is also decreased wrist flexion and extension again 4 to 4+ out of 5 on the right as well as a positive Spurling's. She does have a history of ACDF with Dr. Clemons in 2020. I believe she has a C5-7 fusion. Based on the findings I have recommended a MRI for further evaluation to consider interventional treatment versus referral to a surgeon. This office is not providing medication for this patient. 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 The primary care physician prescribes hydrocodone, gabapentin, and alprazolam. She is currently on Plavix medication. Surgical history: She is status post L5-S1 posterior lumbar interbody fusion with Dr. Clemons in April 2021. She also has a history of ACDF of C5-[address] Clemons in September 2020 as well. MRI cervical spine dated 10/18/2024: C2-3: There is a small disc osteophyte without significant canal or foraminal stenosis. C3-4: There is a small disc osteophyte with mild left foraminal narrowing and mild canal narrowing. There is effacement of the ventral cord surface. C4-5: There is a disc osteophyte complex formation with mild to moderate canal narrowing and effacement of the right ventral cord surface. There is minimal foraminal narrowing. C5-6: There is a mild hypertrophic endplate changes with minimal canal and foraminal narrowing. The canal stenosis is improved. C6-7: There is a disc osteophyte complex formation with posterior element hypertrophic changes. There is mild effacement of the posterior cord surface. There is mild left foraminal narrowing. Canal stenosis has improved C7-T1: There is a mild hypertrophic endplate changes with mild articular facet disease and ligamentum flavum hypertrophy. There is mild canal narrowing along the posterior lateral aspect. There is mild foraminal narrowing. MRI of the lumbar spine 01/28/2021 demonstrates L5-S1 disc osteophyte complex with disc material extending into the canal and displacing the descending S1 nerve roots. There is moderate left and mild right foraminal narrowing. X-rays of the lumbar spine 01/28/2021 demonstrates no significant motion artifact and degenerative disc changes. Injection history: 08/06/2024 #2 Sacroiliac Bilateral Joint injection 85% pain relief 10/10/2024 03/08/2024: # 1 bilateral SI joint/PT injection, 80% pain relief 10/11/2022 #1 Left SI joint injection under fluoro; 90% pain relief for about 3 months 03/09/2021 #TF-JOE Left L5/S1; 80% pain relief for 2 wks Plan: Ms. Bernardo is a 54-year-old female with improvement in her back pain after her bilateral SI joint injection 2 months ago. This can be repeated in October 2024 if needed. Primary complaint today is of neck pain with radicular symptoms in the C5 dermatome in the right upper extremity. She does have neurologic findings as well as decreased sensation in the right upper extremity is nondermatomal. The neurologic findings are predominantly weakness in her hand, wrist as well as shoulder. She does have some decreased range of motion of her cervical spine but also has a positive Spurling's. I recommend MRI of her cervical spine for further evaluation and treatment planning. Pending findings we may discuss interventional treatment versus referral to a surgeon. The patient is in agreement with this. She will follow-up in office after MRI for further evaluation and treatment planning. [email or web address] Not available 10/18/2024 13:33:51 11/12/2024 11/12/2024 Interval history: Ms. Bernardo is a 54-year-old female have historically seen for back pain related to lumbar stenosis as well as sacroiliitis. She has undergone interventional treatment for this with notable benefit in the past. More recently her primary complaint has been of neck pain with referral into the right dominant shoulder. This now refers down below her elbow. We did arrange for an MRI of her cervical spine for which she follows up with today. She does have a history of ACDF of C5-[address] Clemons. An MRI demonstrates adjacent segment degeneration consistent with her complaints. This shows some canal narrowing and neuroforaminal narrowing on the right at C4-5. There is also some on the left at C3-4. There is also facet arthropathy throughout. She does have occipital headaches and there may be some occipital neuralgia versus facet agenic pain related to this. We discussed the findings as well as her complaints at some length today. 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 The primary care physician prescribes hydrocodone, gabapentin, and alprazolam. She is currently on Plavix medication. Surgical history: She is status post L5-S1 posterior lumbar interbody fusion with Dr. Clemons in April 2021. She also has a history of ACDF of C5-[address] Clemons in September 2020 as well. MRI cervical spine dated 10/18/2024: C2-3: There is a small disc osteophyte without significant canal or foraminal stenosis. C3-4: There is a small disc osteophyte with mild left foraminal narrowing and mild canal narrowing. There is effacement of the ventral cord surface. C4-5: There is a disc osteophyte complex formation with mild to moderate canal narrowing and effacement of the right ventral cord surface. There is minimal foraminal narrowing. C5-6: There is a mild hypertrophic endplate changes with minimal canal and foraminal narrowing. The canal stenosis is improved. C6-7: There is a disc osteophyte complex formation with posterior element hypertrophic changes. There is mild effacement of the posterior cord surface. There is mild left foraminal narrowing. Canal stenosis has improved C7-T1: There is a mild hypertrophic endplate changes with mild articular facet disease and ligamentum flavum hypertrophy. There is mild canal narrowing along the posterior lateral aspect. There is mild foraminal narrowing. MRI of the lumbar spine 01/28/2021 demonstrates L5-S1 disc osteophyte complex with disc material extending into the canal and displacing the descending S1 nerve roots. There is moderate left and mild right foraminal narrowing. X-rays of the lumbar spine 01/28/2021 demonstrates no significant motion artifact and degenerative disc changes. Injection history: 08/06/2024 #2 Sacroiliac Bilateral Joint injection 85% pain relief 10/10/2024 03/08/2024: # 1 bilateral SI joint/PT injection, 80% pain relief 10/11/2022 #1 Left SI joint injection under fluoro; 90% pain relief for about 3 months 03/09/2021 #TF-JOE Left L5/S1; 80% pain relief for 2 wks Plan: Ms. Bernardo is a 54-year-old female with increasing neck pain predominately right-sided with referral into the right shoulder and upper extremity just below the elbow as well as referral into the occiput resulting in headaches. She does have some neuroforaminal stenosis at C4-5 on the right consistent with her complaints. I have recommended a C7-T1 cervical epidural steroid injection for which she is agreeable. She is on Plavix and does have cardiac clearance to hold this 5 days prior to the injection. She is not on any aspirin or NSAIDs. All risk and benefits been discussed at length. All of her questions have been answered. Will make arrangements for this in near future without sedation. If she continues to have axial neck pain with referral into the occiput we can discuss right C2-4 MBB's with progression RFA if beneficial in the future. We briefly discussed this in office today. No medications were provided today. [email or web address] Not available 11/12/2024 10:15:43 01/02/2025 01/02/2025 Interval history : Ms. Bernardo is a pleasant 54-year-old female we see for follow-up today with notable improvement in her neck and right upper extremity pain after her first cervical epidural steroid injection a month ago on 11/26/2024. She is reporting about 80% improvement. In the past she has also had some back pain related to sacroiliitis as well as stenosis and has undergone interventional treatment for this. She does not feel need to repeat this at this time. She does have acute right hip pain after being on vacation walking in the sand for about a week. She does have some pain to palpation over the right greater trochanter but also has some increased groin pain with internal rotation of her hip. As this is acute I have recommended oral steroid Dosepak first. She is agreeable with this. She is currently on benzodiazepines as well as opiates by her PCP. This office is not providing medication for this patient. 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 The primary care physician prescribes hydrocodone, gabapentin, and alprazolam. She is currently on Plavix medication. Surgical history: She is status post L5-S1 posterior lumbar interbody fusion with Dr. Clemons in April 2021. She also has a history of ACDF of C5-[address] Clemons in September 2020 as well. MRI cervical spine dated 10/18/2024: C2-3: There is a small disc osteophyte without significant canal or foraminal stenosis. C3-4: There is a small disc osteophyte with mild left foraminal narrowing and mild canal narrowing. There is effacement of the ventral cord surface. C4-5: There is a disc osteophyte complex formation with mild to moderate canal narrowing and effacement of the right ventral cord surface. There is minimal foraminal narrowing. C5-6: There is a mild hypertrophic endplate changes with minimal canal and foraminal narrowing. The canal stenosis is improved. C6-7: There is a disc osteophyte complex formation with posterior element hypertrophic changes. There is mild effacement of the posterior cord surface. There is mild left foraminal narrowing. Canal stenosis has improved C7-T1: There is a mild hypertrophic endplate changes with mild articular facet disease and ligamentum flavum hypertrophy. There is mild canal narrowing along the posterior lateral aspect. There is mild foraminal narrowing. MRI of the lumbar spine 01/28/2021 demonstrates L5-S1 disc osteophyte complex with disc material extending into the canal and displacing the descending S1 nerve roots. There is moderate left and mild right foraminal narrowing. X-rays of the lumbar spine 01/28/2021 demonstrates no significant motion artifact and degenerative disc changes. Injection history: 11/26/2024 #1 VANDANA C7/T1; 80% pain relief 01/02/2025 08/06/2024 #2 Sacroiliac Bilateral Joint injection 85% pain relief 10/10/2024 03/08/2024: # 1 bilateral SI joint/PT injection, 80% pain relief 10/11/2022 #1 Left SI joint injection under fluoro; 90% pain relief for about 3 months 03/09/2021 #TF-JOE Left L5/S1; 80% pain relief for 2 wks Plan: Ms. Bernardo is a 54-year-old female with notable improvement in her neck pain and radicular symptoms in the right upper extremity extends to the elbow after for cervical epidural steroid injection. I explained we can repeat this in February if needed. I have offered an appointment to follow-up to discuss repeat injections but she has chosen to follow-up on a as needed basis. She also has a complaint of acute right hip pain related to likely osteoarthritis as there is some groin pain with internal rotation and some greater trochanteric bursitis on the right. I have recommended a oral Medrol Dosepak for this. She is agreeable with this plan. I will provide prescription today. She will follow-up on a as needed basis. No other medications were provided today. [email or web address] Not available 01/02/2025 08:34:33 Plan of Treatment Reminders Order Date Submit Date Provider Last Modified By Organization Details Last Modified Time Details Appointments FOLLOW UP 15 2024 11:00A Oscar GONZALEZ , SHANNON Not available Not available Not available Lab None recorded. Referral None recorded. Procedures epidural steroid injection , cervical (PROC) - #1 C7-T1 VANDANA under fluorosco py with Dr. Louise/Michelle agudelo/ no sedation/ hold Plavix 5 days prior to injection 2024 025 [email or web address] Not available 11/12/2024 20:07:09 remote therapeut ic monitorin g to monitor musculosk eletal system (PROC) - Patient prescribe d RTM (Remote Therapeut ic Monitorin g) to prevent further functiona l decline and monitor treatment effective ness. Patient will complete medicatio n tracking and physical therapy exercises as instructe dBoris Monitorin g to take place over the next 12 months using the CP&S Fede to also include functiona l assessmen ts as well as daily pain scores. Patient consent obtained and device provided. 2023 025 formerly [facility] 19 Not available 10/10/2024 11:00:34 Surgeries None recorded. Imaging MRI, cervical spine, w/o contrast 2024 025 [facility]ly [facility], [address] [facility] [address] [facility] [address], [place], [address], 10/18/2024 12:39:51 Medication Orders Medrol (Moe) 4 mg tablets in a dose pack 2024 025 [facility], [address], [id number], 01/02/2025 09:23:11 Patient TargetsNo targets recorded. Patient Instructions Encounter Date Encounter Id Patient Instructions Last Modified By Organization Details Last Modified Time 10/10/2024 [id number] high blood pressure: care instructions [email or web address] Not available 10/10/2024 11:00:33 behavioral healt h screen* [email or web address] Not available 10/12/2024 08:40:40 advance directives: care instructions [email or web address] Not available 10/10/2024 11:00:33 depression and chronic disease: care instructions [email or web address] Not available 10/10/2024 11:00:33 safe use of opioid pain medicine: care instructions [place] [email or web address] Not available 10/10/2024 11:00:33 Learning About Benefits of Quitting Smoking [place] [email or web address] Not available 10/10/2024 11:00:33 Reason for Referral None Reported. Results Created Date Observation Date Name Description Value Unit Range Abnormal Flag Note LastModifiedBy Organization Detail LastModifiedTime 10/18/1910/18/2024 MRI, cervi brad spine , w/o contr ast No observ ation record ed. [email or web address] [facility] [address], [place], [address], 10/18/2024 13:20:33 Result Notes None recorded. Problems Name Problem SNOMED Code Status Onset Date Resolution Date Notes Provider Name and Address Organization Details Recorded Time Lumbar spondylosi s 266350469 Active 2023 elana mary, [place] - [facility] 4 13:36:13 Inflammati on of sacroiliac joint 02530834 Active 2023 elana caballero null, [place] - [facility] 4 13:36:13 Bilateral lower limb piriformis syndrome 6145703910904 9104 Active 2023 elana caballero null, [place] - [facility] 4 12:31:29 Chronic pain 27901484 Active 2023 elana caballero null, [place] - [facility] 4 12:31:29 Bilateral sacroiliit is Active 2023 Josy Viramontes null, [place] - [facility] 4 09:08:07 Cervical radiculopa thy 91102822 Active 2024 Kate Blackwell null, [place] - [facility] 5 08:20:12 Right cervical root neuropathy 7264297754561 9108 Active 2024 Eileen oquendo null, [place] - [facility] 5 16:02:12 Cervical spondylosi s 077780178 Active 2024 Eileen oquendo null, [place] - [facility] 5 16:02:12 Lumbar radiculopa thy 264575217 Active 2022 eloise mary [place] - [facility] 3 15:22:15 Overweight 033502483 Active 2022 Not Available [facility] 3 10:10:58 Problem Notes None recorded. Procedures Surgical History Date Name Laterality Status Provider Name and Address Organization Details Recorded Time 02/06/20 25 SI Joint Injection (Fluoro) completed MARQUISE LOUISE MD [address] [place] [address], [phone], [place] - [facility] 02/05/2025 12:56:12 11/27/19 25 Cervical Epidural Steroid Injection: Interlaminar completed Kate Blackwell [place] - [facility] 11/26/2024 08:21:28 08/06/20 24 SI Joint Injection (Fluoro) completed MARQUISE LOUISE MD [address] [place] [address], [phone], [place] - [facility] 08/06/2024 09:34:08 03/08/20 24 SI Joint Injection (Fluoro) completed Coco Rodarte [place] - [facility] 03/08/2024 16:29:24 10/11/19 23 SI Joint Injection (Fluoro) completed Coco Rodarte [place] - [facility] 10/11/2022 08:37:22 04/19/20 21 Back Surgery completed eloise ROSENTHAL - [facility] 10/05/2022 15:44:17 03/09/20 21 Lumbar Transforaminal Epidural Steroid Injection (1 Level Unilateral): completed Niraj Lr MD [address] [place] [address], [phone], [place] - [facility] 03/09/2021 09:03:08 Cervical Spine Surgery completed Kike Camara [place] - [facility] 03/09/2021 08:32:03 cholecystectomy completed Kike Jax [place] - [facility] 03/09/2021 08:32:24 cryosurgery completed Kike Jax [place] [facility] 03/09/2021 08:32:50 Imaging Results None recorded. Procedure Notes None recorded. Medical Equipment None Reported. Allergies Allergen ID Allergen Name Allergen Category Reaction Reaction Severity Criticality Documentation Date Start Date Code Code System Note Provider Name and Address Organization Details Recorded Time 201054 Non-stero idal anti-infl ammatory agent (product) medicatio n Not available Not available Not available 03/09/2021 71610 005 SNOMED Kike Jax null, [place] [facility], [facility] 1 08:24:02 950258 morphine medicatio n Not available Not available Not available 03/09/2021 7052 RxNorm Kike Jax null, [place] [facility], [facility] 1 08:24:56 628363 Tequin medicatio n Not available Not available Not available 03/09/2021 75241 4 RxNorm Kike Jax null, [place] [facility], [facility] 1 08:25:21 748087 Flagyl medicatio n Not available Not available Not available 03/09/202144822 6 RxNorm Kike Jax null, [place] - [facility] 1 08:28:32 Medications Name Sig Start Date Stop [...] Not Available Not Available Not Available Vitals Date Recorded Body height Body mass index (BMI) Body weight Oxygen saturation Oxygen saturation in Arterial blood by Pulse oximetry Heart rate Systolic And Diastolic Provider Name and Address Organization Details Last Updated DateTime 5 167.64 cm 27.4 kg/m2 25569.7 g 97 % 97 % 80 /min 135/80 mm[Hg] Josy Viramontes [facility] 5 09:01:12 Date Recorded Body height Body mass index (BMI) Body weight Oxygen saturation Oxygen saturation in Arterial blood by Pulse oximetry Heart rate Systolic And Diastolic Provider Name and Address Organization Details Last Updated DateTime 5 167.64 cm 27.4 kg/m2 94814.7 g 98 % 98 % 73 /min 123/77 mm[Hg] Karishma Heller [facility] 5 09:32:43 Date Recorded Body height Body mass index (BMI) Body weight Oxygen saturation Oxygen saturation in Arterial blood by Pulse oximetry Heart rate Systolic And Diastolic Provider Name and Address Organization Details Last Updated DateTime 5 167.64 cm 27.4 kg/m2 58965.7 g 99 % 99 % 82 /min 122/75 mm[Hg] Eileen kendrick [facility] 5 08:10:12 Social History Question Answer Notes LastModified by Organizat ion Details LastModified Time Tobacco Smoking Status Former Smoker [place] - [facility] 03/09/2021 08:30:13 Do You Have An Advance Directive? Yes [email or web address] Information n ot available 10/05/2022 What Is Your Level Of Caffeine Consumption? Moderate [email or web address] Information not available 10/05/2022 How Much Tobacco Do You Chew? None Information not available 10/05/2022 In The 14 Days Before Symptom Onset, Have You Had Close Contact With A Laboratory-confirm ed COVID-19 While That Case Was Ill? No Information n ot available 10/05/2022 In The 14 Days Before Symptom Onset, Have You Had Close Contact With A Person Who Is Under Investigation For COVID-19 While That Person Was Ill? No [email or web address] Information not available 10/05/2022 Are You Deaf Or Do You Have Serious Difficulty Hearing? No Information not available 10/05/2022 What Type Of Diet Are You Following? REGULAR [email or web address] Information n ot available 10/05/2022 Which Illicit Or Recreational Drugs Have You Used? None [email or web address] Information not available 10/05/2022 Education 4 Year College Information not available 10/05/2022 What Is The Highest Grade Or Level Of School You Have Completed Or The Highest Degree You Have Received? [id number] [email or web address] Information not available 10/05/2022 How Many Times Per Week Do You Exercise? 3-4 Times Per Week [email or web address] Information not available 10/05/2022 Hard Of Hearing Or Deaf In One Or Both Ears? No [email or web address] Information not available 10/05/2022 Prescription Drug Abuse No Information not available 03/09/2021 Disability No Information no t available 03/09/2021 History Of Sexual Abuse No Information not available 03/09/2021 Marital Status Informatio n not available 03/09/2021 What Was The Date Of Your Most Recent Tobacco Screening? 02/16/2024 [email or web address] Information not available 02/16/2024 How Much Tobacco Do You Smoke? No [email or web address] Information not available 10/05/2022 General Stress Level Medium [email or web address] Information not available 10/05/2022 Do You Have Difficulty Walking Or Climbing Stairs? Yes [email or web address] Information not available 10/05/2022 Sex: Unknown Functional Status Question Answer Note LastModified by Organizat ion Details LastModified Time How many times per week do you consume alcohol? <1 time per week [email or web address] Information not available 10/05/2022 Do you use any illicit or recreational drugs? No [email or web address] Information not available 10/05/2022 What is your level of alcohol consumption? Occasional Information not available 03/09/2021 Do you or have you ever used smokeless tobacco? Never used smokeless tobacco Information not available 10/05/2022 Are you currently employed? Yes [email or web address] Information not available 10/05/2022 Are you able to walk? YES[employer]OREST [email or web address] Information not available 10/05/2022 Do you have difficulty doing errands alone? 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 Yes [email or web address] Information not available 10/05/2022 Do you or have you ever used e-cigarettes or vape? Never used electronic cigarettes [email or web address] Information not available 10/05/2022 What is your exercise level? Moderate [email or web address] Information not available 10/05/2022 Mental Status Question Answer Note LastModified by Organization D etails LastModified Time Do you have difficulty concentrating, remembering or making decisions? No [email or web address] Information no t available 10/05/2022 Family History Relationship Description Onset Age of this Age Resolved Age Notes LastModified by Organization Details LastModified Time Mother Cerebrovascu lar accident [email or web address] Not available 15:22:42 Mother Hypertensive disorder [email or web address] Not available 2022 15:22:42 Father Heart disease [email or web address] Not available 2022 15:22:42 Father Hypertensive disorder [email or web address] Not available 2022 15:22:42 Medical History Condition [...] N Neurosurgery N Anemia Y Heart Attack (NH) N Diabetes N Cardiomyopathy N Inflammatory Bowel Disease N Dementia N Sleep Apnea N Heart Disease Y Hypertension N Osteoporosis N Gynecological HistoryNo gynecological history recorded. Obstetrics History GPAL:G 0 P 0 0 0 0 Past Encounters Encounter ID Performer Location Encounter Start Date Encounter Closed Date Diagnosis/Indication Diagnosis SNOMED-CT Code Diagnosis ICD10 Code Diagnosis Note [id number] MD Bobby Nguyen [address] [place] [address] 03/09/2021 08:20:17 03/09/2021 09:00:12 Lumbar radiculopathy 433089367 M54.16 [id number] MD Bobby Nguyen [address] [place] [address] 03/09/2021 08:00:13 03/09/2021 09:00:04 Intervertebral disc disorder 16518399 M51.27 Lumbar radiculopathy 128 170297 M54.16 [id number] MD [facility] [address] [place] [address] 10/05/2022 15:20:08 10/05/2022 16:23:42 Intervertebral disc disorder 77280700 M51.27 Lumbar radiculopathy 128 818800 M54.16 Long-term drug therapy 629613956 Z79.899 Hypertensi on screening 353036276 Z13.6 Lumbar spondylosis 88761 0009 M47.896 Inflammati on of sacroiliac joint 41562524 M46.1 [id number] MD [facility] [place] [address] [place] [address] 10/11/2022 08:13:48 10/11/2022 08:36:51 Inflammation of sacroiliac joint 80520514 M46.1 [id number] MARQUISE LOUISE MD [place] [address] [place] [address] 02/16/2024 08:35:02/16/2024 09:18:40 Intervertebral disc disorder 12952183 M51.27 Lumbar radiculopathy 128 576284 M54.16 Long-term drug therapy 560599456 Z79.899 Hypertensi on screening 422604804 Z13.6 Lumbar spondylosis 49941 0009 M47.816 Inflammati on of sacroiliac joint 01093279 M46.1 Chronic pain 51714360 G8 9.29 Bilateral lower limb piriformis syndrome 2376161632 6186740 G57.03 [id number] MARQUISE LOUISE MD [place] [address] [place] [address] 03/08/2024 15:01:31 03/08/2024 16:28:14 Inflammation of sacroiliac joint 16524115 M46.1 [id number] MARQUISE LOUISE MD [place] [address] [place] [address] 07/30/2024 08:01:37 07/30/2024 08:29:07 Chronic pain 26919130 G89.29 Bilateral lower limb piriformis syndrome 8025326771 2933487 G57.03 Bilateral sacroiliitis 6331486215 M46.1 [id number] MARQUISE LOUISE MD [place] [address] [place] [address] 08/06/2024 08:28:41 08/06/2024 08:52:31 Inflammation of sacroiliac joint 26758657 M46.1 Bilateral sacroiliitis 8920034633 M46.1 [id number] MARQUISE LOUISE MD [place] [address] [place] [address] 10/10/2024 08:44:09 10/10/2024 09:26:13 Chronic pain 03903477 G89.29 Bilateral sacroiliitis 8316877711 M46.1 Bilateral lower limb piriformis syndrome 0395926288 5916725 G57.03 Long-term drug therapy 990902759 Z79.899 NO UDS TODAY 10/10/2024 Hypertensi on screening 462192168 Z13.6 Cervical spondylosis 387 030817 M47.812 Cervical radiculopathy 80440174 M54.12 [id number] MARQUISE LOUISE MD [place] [address] [place] [address] 11/12/2024 09:17:29 11/12/2024 10:37:44 Chronic pain 45396914 G89.29 Cervical spondylosis 387 897674 M47.22 Right cerv ical root neuropathy 0936678039 9003243 M54.12 [id number] MARQUISE LOUISE MD [place] [address] [place] [address] 11/26/2024 07:48:07 11/26/2024 08:18:29 Cervical radiculopathy 34932177 M54.12 [id number] MARQUISE LOUISE MD [place] [address] [place] [address] 01/02/2025 08:02:16 01/02/2025 09:16:24 Chronic pain 26573542 G89.29 Cervical spondylosis 387 378963 M47.22 Right cerv ical root neuropathy 4706862899 1824634 M54.12 Long-term drug therapy 573104134 Z79.899 NO UDS TODAY 01/02/2025 Pain of hip region 14303 002 M25.800 [id number] MD [facility] [place] [address] [place] [address] 02/05/2025 10:03:51 02/05/2025 11:25:20 Inflammation of sacroiliac joint 93779752 M46.1 Health Concerns Section Related Observation LastModified by Organization Detai ls LastModified Time None Recorded Concern Status LastModified by Organization Details LastModified Time None Recorded Advance Directives Directive Y: Payers Insurance Date Sequence Insurance Name Policy Number Policy Bernstein Covered Member ID Bernstein Member ID Guarantor Name 02/02/2025 1 HODAN-[place]: [place] [id number] Ester Bernardo [id number] Ester Bernardo Notes Date Note Type Note Provider Name and Address Organization Details Recorded Time 10/10/2024 text/html Low back painReported bypatient.Location :[facility]: Context:started without cause Quality:aching; burning; gnawing; stabbing; throbbing; sharp; dull; worsening Pain IntensitySevere; current pain level: 8/10; average pain level: 8/10; worst pain level: 9/10 Alleviating Factors:nothing helps Aggravating Factors:sitting; standing; walking; lifting Associated Symptoms:no swelling; no popping/clicking; no bowel incontinence; no urinary retention; no urinary incontinence; no perineal paresthesia/anesth esia;weakness;numb ness;tingling Functional Assessment of ADLsLiving independently.; Able to bathe/groom without assistance.; Able to complete utility hand without much difficulty.; Walking without assistance or significant difficulty; Working without restriction. Prior Imaging:MRI Lumbar Surgery:lumbar spinal fusion: (L5, S1 Fusion 04/19/2021) Interventional Treatment History:SI joint injections: ; 03/08/2024: # 1 bilateral SI joint/PT injection, 80% pain relief 10/11/2022 #1 Left SI joint injection under fluoro; 90% pain relief for about 3 months Physical Therapy:completed all recommended PT visits; Continues doing home exercises Current Analgesics:CP&S does not prescribe medication at this time. Pharmacy verified. Medications History:Neuropathi cs:; Opioid pain medications: Prior Pain Management:no For Female Patients:Are you ? No Patient presents today for injection f/u. Patient states pian is 02/26 today . The patient has had no recent hospitalization, ER visits, specialist appointments (neurology, orthopedics, surgery), or updated imaging since their last visit. patient states she would like injections for her neck area . 08/06/2024 #2 Sacroiliac Bilateral Joint injection 85% pain relief 10/10/2024 ASAEL GONZALEZ APRN [address] [place] [address], [phone], [facility] 10/18/2024 13:33:58 11/12/2024 text/html Low back painReported bypatient.Location :buttock: Context:started without cause Quality:aching; burning; gnawing; stabbing; throbbing; sharp; dull; worsening Pain IntensitySevere; current pain level: 6/10; average pain level: 8/10; worst pain level: 9/10 Alleviating Factors:nothing helps Aggravating Factors:sitting; standing; walking; lifting Associated Symptoms:no swelling; no popping/clicking; no bowel incontinence; no urinary retention; no urinary incontinence; no perineal paresthesia/anesth esia;weakness;numb ness;tingling Functional Assessment of ADLsLiving independently.; Able to bathe/groom without assistance.; Able to complete utility hand without much difficulty.; Walking without assistance or significant difficulty; Working without restriction. Prior Imaging:MRI (10/18/2024- cervical MRI- [facility]) Lumbar Surgery:lumbar spinal fusion: (L5, S1 Fusion 04/19/2021) Interventional Treatment History:SI joint injections: ; 03/08/2024: # 1 bilateral SI joint/PT injection, 80% pain relief 10/11/2022 #1 Left SI joint injection under fluoro; 90% pain relief for about 3 months Physical Therapy:completed all recommended PT visits; Continues doing home exercises Current Analgesics:CP&S does not prescribe medication at this time. Pharmacy verified. Medications History:Neuropathi cs:; Opioid pain medications: Prior Pain Management:no For Female Patients:Are you ? No Patient reports to office today for scheduled follow up. Patient would like to discuss her MRI today. Patient states the pain in her left leg is returning. Patient denied any other health changes. ASAEL GONZALEZ, HYSTER MACHINE OPERATOR [address] [place], [address], [facility] 11/12/2024 12:34:23 01/02/2025 text/html Low back painReported bypatient.Location :buttock: Context:started without cause Quality:aching; burning; gnawing; stabbing; throbbing; sharp; dull; worsening Pain IntensitySevere; current pain level: 4/10; average pain level: 8/10; worst pain level: 9/10 Alleviating Factors:nothing helps Aggravating Factors:sitting; standing; walking; lifting Associated Symptoms:no swelling; no popping/clicking; no bowel incontinence; no urinary retention; no urinary incontinence; no perineal paresthesia/anesth esia;weakness;numb ness;tingling Functional Assessment of ADLsLiving independently.; Able to bathe/groom without assistance.; Able to complete utility hand without much difficulty.; Walking without assistance or significant difficulty; Working without restriction. Prior Imaging:MRI (10/18/2024- cervical MRI- [facility]) Lumbar Surgery:lumbar spinal fusion: (L5, S1 Fusion 04/19/2021) Interventional Treatment History:SI joint injections: ; 03/08/2024: # 1 bilateral SI joint/PT injection, 80% pain relief 10/11/2022 #1 Left SI joint injection under fluoro; 90% pain relief for about 3 months Physical Therapy:completed all recommended PT visits; Continues doing home exercises Current Analgesics:CP&S does not prescribe medication at this time. Pharmacy verified. Medications History:Neuropathi cs:; Opioid pain medications: Prior Pain Management:no For Female Patients:Are you ? No Patient presents today for f/u. Patient states pain is 4/10 today. Patient has had no recent hospitalizations, ER visits, or specialist visits. Patient also denies recent updated imaging since last visit. Patient reports no changes at this time. Patient would like to discuss options for right hip pain. 11/26/2024 #1 VANDANA C7/T1; 80% pain relief 01/02/2025 ASAEL GONZALEZ, HYSTER MACHINE OPERATOR [address] [facility], [place], [address], [facility] 01/02/2025 11:37:40 OBGyn Episode No OBEpisode recorded.
--- OUTSIDE RECORDS SUMMARY | 2025-03-28 06:28 | XMS_ITS | Data Portability ---
Author Organization [facility] Zhou [facility] Address [address] [facility] [facility] [address] [place] [address] Care Team Providers Care At Risk Specialist Name Role Phone ASAEL GOTTLIEB Primary Care Provider [phone] Assessment Encounter Date Assessment Date Assessment LastModified by Organization Details LastModified Time 04/11/2023 04/11/2023 This is a 52-year-old female seen today for follow-up after left SI joint injection performed 03/15/2023 Pt reports 60% pain relief from the injection but pain has now radiated to rt side buttock and continues in lumbar spine with radiculopathy. She would also like to discuss neck pain without radicular symptoms PMH: PSHx: L5-S1 fusion (04/2021), ACDF C5-7 (09/2020) 1. X-ray lumbar spine 09/14/2021 demonstrates L5-S1 fusion satisfactory place with no evidence of loosening. 2. MRI lumbar spine 01/28/2021 demonstrates disc osteophyte complex with mild displacement of the descending S1 nerve roots. Moderate left and mild right foraminal narrowing. Acute on chronic degenerative endplate changes at L5-S1. 3. Lumbar x-ray 02/23/2023 essentially normal with satisfactory placement of spinal fusion hardware at L5-S1. No instability 4. Lumbar MRI 03/18/2023 demonstrates Moderate left and mild right foraminal narrowing at L4-5 in the absence of recurrence of disc herniation The above image findings were discussed with the patient. Previous injection therapy has included: 03/15/2023 left SI joint injection with 60% ongoing benefit 03/09/2021 left L5-S1 TFESI 80% relief 10/11/2022 left SI joint injection with benefit Currently prescribed [place] and gabapentin by PCP. Patient has participated in a physician directed home exercise program for at least 6 weeks in the last 6 months Presentation is consistent with sacroiliitis and postlaminectomy syndrome with post-operative neck pain. I recommend: 1. L4-5 ILESI 2. Cervical xray to be performed today, consider MRI and treatment pending results 3. Pending results consider JOE versus SCS about lumbar spine External records were reviewed and discussed as above, including imaging, clinical notes, and relevant labs. [email or web address] Not available 04/11/2023 09:59:20 05/30/2023 05/30/2023 MRI cervical and lumbar spine from on 05/03/23 and 03/18/[address] Jami Clemons and myself. - mild degenerative changes in the cervical and lumbar spine without severe nerve compression. Ms. Galvan is s/p L5-S1 TLIF on 04/29/21 and C5-7 ACDF on 10/10/[address] Clemons and returns with left radicular leg pain and neck pain. Dr. Clemons discussed with her that her MRIs do not show any severe nerve compression that would be amenable to surgery. She has had some success with injections in the past, and he discussed with her that it would be reasonable to try another injection. We are going to start her on cymbalta to see if this helps with her pain. Seen by Dr. Jeff Clemons and myself. [email or web address] Not available 06/01/2023 14:17:05 Plan of Treatment Reminders Order Date Submit Date Provider Last Modified By Organization Details Last Modified Time Details Appointments None recorded. Lab None recorded. Referral None recorded. Procedures epidural steroid injection, lumbar interlamina r (PROC) 2022 023 [email or web address] [facility], [address] [facility], [place], [address], 09:51:54 Surgeries None recorded. Imaging XR, cervical spine, 4 or 5 view 2022 023 [facility] Radiology [facility], [address] [place], [phone], 3 16:34:05 Medication Orders clindamycin 1 % lotion 2024 025 [facility], [address] [place], [place] [address]C[place]io[place], [id number], 5 16:27:07 doxycycline hyclate 100 mg tablet 2024 025 [facility], [address] [place], [place] [address]Melani[place]ye [place], [id number], 5 18:23:43 Cymbalta 60 mg capsule,del ayed release 2022 023 [email or web address] 1 [facility], [address] [place], [place] [address]C[place]io[place], [id number], 3 14:06:34 Patient TargetsNo targets recorded. Patient InstructionsNo instructions recorded. Reason for Referral None Reported. Results Created Date Observation Date Name Description Value Unit Range Abnormal Flag Note LastModifiedBy Organization Detail LastModifiedTime 02/24/20 23 02/23/2023 XR, lumbo sacra l spine , compl ete [facility] [address] [place] [address] Zeynep newsome Name: ESTER newsome : [birth year] 74 Zeynep newsome 84 Orderi ng Provid er: IRLANDA Yu [facility] EXAM DATE: 2022 EXAM: XR LUMBAR COMPLE TE WITH FLEX/E XT CLINIC AL INFORM ATION: Back pain. IMAGES PROVID ED: Comple te radiog raphic series of the lumbar spine with additi onal latera l views in flexio n and extens ion. COMPAR LUDIN: None. FINDIN GS AND IMPRES MICHAEL: Spinal fusion is noted at L5-S1 levels . Surgic al hardwa re is satisf actori ly placed . No abnorm al hardwa re moveme nt is seen in flexio n or extens ion. Minima l degene rative change s are seen at other levels . No instab ility. Interp reted By: Vivian London MD Electr onical ly Signed By: Vivian London MD on 02/24/20 10:22 AM [email or web address] [facility] Radiology [facility] [address] [place] [address], [phone], 02/23/2023 13:40:09 03/18/20 23 03/18/2023 MRI, lumba r spine , w/wo contr ast [place] [id number] [facility] [place] [address] Patien t Name: ESTER GALVAN Patien t : [birth year] Patien t 84 Orderi ng Provid er: IRLANDA Yu [facility] EXAM DATE: 2022 EXAM: MR LUMBAR SPINE W/WO CONTRA ST HISTOR Y: 42-yea r-old female with low back pain, and left hip pain and numbne ss. The patien t has had prior lumbar fusion . COMPAR LUDIN: Radiog raph dated 02/24/20 The patien t did not requir e sedati on for this exam. No POC testin g for eGFR was perfor med due to absenc e of risk factor s. FINDIN GS: The patien t is status post discec jennifer, interb alison graft and repair technician ior fusion at L5-S1. There is parama gnetic artifa ct from the pedicl e screws and repair technician ior fusion hardwa re. There is no eviden ce of compli cation . There is diffus e levocu rvatur e of the lumbar spine. There is no sublux ation. There is no fractu re. There is mild anteri or margin al osteop hytic spurri ng. No pathol ogic lesion is identi fied in the lumbar spine. The conus medull vianney is normal in appear ance at the L2 level. T12-L1 and L1-L2: These interv ertebr al discs are essent ially normal in appear ance. L2-L3: There is a small disc bulge. There is no centra l canal stenos is. There is no neural forami nal stenos is. L3-L4: There is a broad- based disc bulge, mild endpla te spurri ng and mild facet arthro leobardo. There is no centra l canal stenos is. There is minima l neural forami nal stenos is. L4-L5: There is a broad- based disc bulge/ protru michael extend ing into the neural forami na and mild to modera te facet arthro leobardo. There is no centra l canal stenos is. There is mild/m oderat e left and mild right neural forami nal stenos is. L5-S1: There is prior fusion with residu al endpla te spurri ng. There is no centra l canal stenos is. There is mild left neural forami nal stenos is. After intrav enous admini strati on of 7.[address] ([facility] [id number] 1), there is no abnorm al enhanc ement in the lumbar spine. The parasp inous muscul ature is symmet ashley and normal in signal . IMPRES MICHAEL: 1. The zeynep newsome is status post PLIF at L5-S1 with mild left neural forami nal narrow ing. 2. There is mild/m oderat e left and mild right neural forami nal narrow ing at L4-L5. Interp reted By: Alexx martin MD Electr onical ly Signed By: Alexx martin MD on 023 1:21 PM [facility] Radiology [address], [phone], 03/25/2023 12:49:56 04/12/20 23 04/12/2023 XR, cervi brad spine , 4 or [address] [place] [address] Zeynep newsome Name: ESTER newsome : [birth year] Zeynep newsome 84 Orderi ng Provid er: KRISTINA AKBAR EXAM DATE: 2022 EXAM: XR CERVIC AL SPINE AP/LAT /FLEX/ EXT CLINIC AL INFORM ATION: Neck pain. IMAGES PROVID ED: Latera l views of the cervic al spine in flexio n and extens ion. COMPAR LUDIN: None. FINDIN GS AND IMPRES MICHAEL: C5-C7 spinal fusion is noted. Surgic al hardwa re is satisf actori ly placed . No abnorm al hardwa re moveme nt is seen in flexio n or extens ion. Other levels appear normal . There is no instab ility. Interp reted By: Vivian London MD Electr onical ly Signed By: Vivian London MD on 023 4:28 PM [facility] Radiology [address], [phone], 04/13/2023 08:57:30 05/03/20 23 05/03/2023 MRI, cervi brad spine , w/o contr ast [facility] [place] [address] [address] Patien t Name: ESTER GALVAN Patiattila t : [birth year] Patien t 84 Orderi ng Provid er: KRISTINA AKBAR EXAM DATE: 2022 EXAM: MR CERVIC AL W/O CONTRA ST HISTOR Y: Neck pain. Previo us surger y COMPAR LUDIN: None. FINDIN GS: The C5-C7 anteri or fixati on and interb alison fusion . Parama gnetic artifa ct is presen t. No defini te compli cation is indica shana. T1 tito ioma sugges shana. No sublux ation. There is no fractu re or pathol ogic intrao sseous lesion . There is mild anteri or margin al osteop hytic spurri ng. No parasp inous soft tissue abnorm ality is identi fied. The visual ized spinal cord and repair technician ior fossa of the brain are normal in appear ance. The cranio cervic al juncti on is normal in appear ance. There are mild degene rative change s at C1-C2. C2-C3: There is mild endpla te spurri ng and a mild disc bulge. There is no centra l canal stenos is. There is no neural forami nal stenos is. C3-C4: There is a modera te disc bulge and mild endpla te spurri ng. There is no centra l canal stenos is. There is no neural forami nal narrow ing. C4-C5: There is a modera te diffus e annula r bulge and mild endpla te spurri ng. There is no centra l canal stenos is. There is no neural forami nal narrow ing. C5-C6: Upper fusion level. Mild residu al spurri ng. No spinal or forami nal stenos is C6-C7: Lower fusion level with mild residu al spurri ng. No signif icant spinal or forami nal stenos is C7-T1: This interv ertebr al disc is essent ially normal in appear ance. The visual ized thorac ic spine are essent ially normal in appear ance. IMPRES MICHAEL: 1. Mild DDD. Previo us C5 C7 fusion with no compli cation indica shana Interp reted By: Neo Gee MD Electr onical ly Signed By: Neo Gee MD on 023 9:18 AM [facility] Radiology [facility] [address] [place] [address], [phone], 05/04/2023 13:58:36 Result Notes Documentation Provider Name and Address Organization Details Recorded Time Mri, Lumbar Spine, W/wo Contrast : [place] [id number] [place] [address] Patient Name: ESTER GALVAN Patient : 1970 Patient Ordering Provider: MAXIMUS LR EXAM DATE: 03/18/2023 EXAM: MR LUMBAR SPINE W/WO CONTRAST HISTORY: 42-year-old female with low back pain, and left hip pain and numbness. The patient has had prior lumbar fusion. COMPARISON: Radiograph dated 02/23/2023 The patient did not require sedation for this exam. No POC testing for eGFR was performed due to absence of risk factors. FINDINGS: The patient is status post discectomy, interbody graft and posterior fusion at L5-S1. There is paramagnetic artifact from the pedicle screws and posterior fusion hardware. There is no evidence of complication. There is diffuse levocurvature of the lumbar spine. There is no subluxation. There is no fracture. There is mild anterior marginal osteophytic spurring. No pathologic lesion is identified in the lumbar spine. The conus medullaris is normal in appearance at the L2 level. T12-L1 and L1-L2: These intervertebral discs are essentially normal in appearance. L2-L3: There is a small disc bulge. There is no central canal stenosis. There is no neural foraminal stenosis. L3-L4: There is a broad-based disc bulge, mild endplate spurring and mild facet arthropathy. There is no central canal stenosis. There is minimal neural foraminal stenosis. L4-L5: There is a broad-based disc bulge/protrusion extending into the neural foramina and mild to moderate facet arthropathy. There is no central canal stenosis. There is mild/moderate left and mild right neural foraminal stenosis. L5-S1: There is prior fusion with residual endplate spurring. There is no central canal stenosis. There is mild left neural foraminal stenosis. After intravenous administration of 7.5 mL Gadavist ([facility] [id number]), there is no abnormal enhancement in the lumbar spine. The paraspinous musculature is symmetric and normal in signal. IMPRESSION: 1. The patient is status post PLIF at L5-S1 with mild left neural foraminal narrowing. 2. There is mild/moderate left and mild right neural foraminal narrowing at L4-L5. Interpreted By: Levi Zarco MD MUS LR MD [address] [place] [address], [phone] 03/25/2023 12:49:56 Xr, Cervical Spine, 4 Or 5 View : [place] [address] Patient Name: ESTER GALVAN Patient : 1970 Patient Ordering Provider: KRISTINA AKBAR EXAM DATE: 04/12/2023 EXAM: XR CERVICAL SPINE AP/LAT/FLEX/EXT CLINICAL INFORMATION: Neck pain. IMAGES PROVIDED: Lateral views of the cervical spine in flexion and extension. COMPARISON: None. FINDINGS AND IMPRESSION: C5-C7 spinal fusion is noted. Surgical hardware is satisfactorily placed. No abnormal hardware movement is seen in flexion or extension. Other levels appear normal. There is no instability. Interpreted By: Blane London MD TINA AKBAR PA-C [address] [place] [address], [phone], [facility] 04/13/2023 08:57:31 Mri, Cervical Spine, W/o Contrast : [place] [address] [place] [address] Patient Name: ESTER GALVAN Patient : 1970 Patient Ordering Provider: KRISTINA AKBAR EXAM DATE: 05/03/2023 EXAM: MR CERVICAL W/O CONTRAST HISTORY: Neck pain. Previous surgery COMPARISON: None. FINDINGS: The C5-C7 anterior fixation and interbody fusion. Paramagnetic artifact is present. No definite complication is indicated. T1 hemangioma suggested. No subluxation. There is no fracture or pathologic intraosseous lesion. There is mild anterior marginal osteophytic spurring. No paraspinous soft tissue abnormality is identified. The visualized spinal cord and posterior fossa of the brain are normal in appearance. The craniocervical junction is normal in appearance. There are mild degenerative changes at C1-C2. C2-C3: There is mild endplate spurring and a mild disc bulge. There is no central canal stenosis. There is no neural foraminal stenosis. C3-C4: There is a moderate disc bulge and mild endplate spurring. There is no central canal stenosis. There is no neural foraminal narrowing. C4-C5: There is a moderate diffuse annular bulge and mild endplate spurring. There is no central canal stenosis. There is no neural foraminal narrowing. C5-C6: Upper fusion level. Mild residual spurring. No spinal or foraminal stenosis C6-C7: Lower fusion level with mild residual spurring. No significant spinal or foraminal stenosis C7-T1: This intervertebral disc is essentially normal in appearance. The visualized thoracic spine are essentially normal in appearance. IMPRESSION: 1. Mild DDD. Previous C5 C7 fusion with no complication indicated Interpreted By: Neo Gee MD TINA AKBAR PA-C [address] [place], [address], [facility] 05/04/2023 13:58:36 Problems No Known Problems Procedures Surgical History Date Name Laterality Status Provider Name and Address Organization Details Recorded Time 11/12/19 25 Destruction Premalignant Lesion(s) completed Shannon Poole [facility] 11/12/2024 14:16:56 11/12/19 25 Destruction BN Lesions completed Shannonsimran Poole [facility] 11/12/2024 14:18:01 06/24/20 23 Lumbar Epidural Steroid Injection - [facility] completed MAXIMUS LR MD [address] [place] [address], [phone], [facility] 06/24/2023 14:09:39 03/15/20 23 Sacroiliac Joint Injection - [facility] completed MAXIMUS LR MD [address] [place] [address], [phone], [facility] 03/15/2023 13:00:19 04/29/20 21 TRANSFORAMINAL INTERBODY LUMBAR FUSION, LEVEL SPECIFIED, WITH HARDWARE (SURG) completed Margert Chávez [facility] 05/06/2021 10:47:56 08/07/20 18 Destruction BN Lesions completed Yeimi Meehan [facility] 08/07/2018 10:34:59 Cholecystectomy completed Madeleine Mohamud [facility] 08/18/2020 13:05:38 ligation of fallopian tube completed Madeleine Mohamud [facility] 08/18/2020 13:10:01 Imaging Results None recorded. Procedure Notes None recorded. Medical Equipment None Reported. Allergies Allergen ID Allergen Name Allergen Category Reaction Reaction Severity Criticality Documentation Date Start Date Code Code System Note Provider Name and Address Organization Details Recorded Time 864361 Non-stero idal anti-infl ammatory agent (product) medicatio n Not available Not available Not available 08/18/2020 64412 005 SNOMED Madeleine Cade [facility] 0 13:08:09 937252 Tequin medicatio n Not available Not available Not available 08/18/2020 97502 4 RxNorm Madeleine Cade [facility] 0 13:08:42 399934 morphine medicatio n Not available Not available Not available 08/18/2020 7052 RxNorm Madeleine Cade [facility] 0 13:08:48 672434 Flagyl medicatio n Not available Not available Not available 08/18/2020 58424 6 RxNorm Madeleine Cade null, [facility] 0 13:09:01 557637 shrimp allergeni c extract food Not available Not available Not available 08/18/2020 24293 2 RxNorm Madeleine Cade [facility], [facility] 0 13:09:09 868403 strawberr y allergeni c extract food Not available Not available Not available 08/18/2020 36872 4 RxNorm Madeleine Cade null, [facility] 0 13:09:27 386058 peanut allergeni c extract food,medi cation Not available Not available Not available 08/18/2020 00785 8 RxNorm Madeleine Cade [facility], [facility] 0 13:09:35 758320 Iodinated contrast media (substanc e) medicatio n Not available Not available Not available 04/11/2023 60651 2004 SNOMED Analy Tae [facility], [facility] 3 09:10:44 746683 shellfish derived food,medi cation Not available Not available Not available 04/11/2023 80789 Micaela AKBAR PA-C [address] [place] [address], [phone], [facility] 3 09:19:02 Medications Name Sig Start Date Stop Date Status Note LastModified by Organization Details LastModified Time cyclobenzap rine 10 mg tablet Take 1 tablet 3 times a day by oral route as needed. 02/23 completed Not Available Not Available Not Available amoxicillin 500 mg capsule 02/23 completed Not Available Not Available Not Available methocarbam ol 500 mg tablet active Not Available Not Available Not Available Percocet 7.5 mg-325 mg tablet Take 1 tablet every 6 hours by oral route as needed. 02/23 completed Not Available Not Available Not Available prednisone 10 mg tablet active Not Available Not Available Not Available desoximetas one 0.25 % topical cream active Not Available Not Available Not Available fluconazole 150 mg tablet active Not Available Not Available Not Available valacyclovi r 1 gram tablet 02/23 completed Not Available Not Available Not Available prednisone 20 mg tablet active Not Available Not Available Not Available phentermine 37.5 mg tablet active Not Available Not Available Not Available clopidogrel 75 mg tablet active Not Available Not Available Not Available sulfamethox azole 800 mg-trimetho prim 160 mg tablet active Not Available Not Available Not Available hydrocodone 10 mg-acetamin ophen 325 mg tablet active Not Available Not Available No t Available bisoprolol fumarate 5 mg tablet active Not Available Not Available No t Available alprazolam 0.25 mg tablet active Not Available Not Available Not Available dicyclomine 20 mg tablet active Not Available Not Available Not Available benzonatate 100 mg capsule active Not Available Not Available Not Available hydrocodone 7.5 mg-acetamin ophen 325 mg tablet Take 1 tablet every 6 hours by oral route as needed. 02/23 completed Not Available Not Available Not Available triamcinolo ne acetonide 55 mcg nasal spray aerosol active Not Available Not Available Not Available balsalazide 750 mg capsule active Not Available Not Available Not Available omeprazole 20 mg capsule,del ayed release active Not Available Not Available Not Available mupirocin 2 % topical ointment 02/23 completed Not Available Not Available Not Available gabapentin 100 mg capsule active Not Available Not Available Not Available epinephrine 0.3 mg/0.3 mL injection, auto-inject or active Not Available Not Available Not Available methylpredn isolone 4 mg tablets in a dose pack Take 1 tablet by oral route. active Not Available Not Available No t Available albuterol sulfate HFA 90 mcg/actuati on aerosol inhaler active Not Available Not Available Not Available ondansetron 4 mg disintegrat ing tablet 02/23 completed Not Available Not Available Not Available cefdinir 300 mg capsule 02/23 completed Not Available Not Available Not Available doxycycline hyclate 100 mg tablet Take 1 tablet every day by oral route for 30 days. active Not Available Not Available No t Available clindamycin 1 % lotion APPLY A THIN LAYER TO THE AFFECTED AREA(S) BY TOPICAL ROUTE 2 TIMES PER DAY active Not Available Not Available No t Available Cymbalta 60 mg capsule,del ayed release Take 1 capsule every day by oral route. 2022 active Not Available Not Available Not Avai lable mesalamine 1,000 mg rectal suppository 02/23 completed Not Available Not Available Not Available mesalamine ER 0.375 gram capsule,ext ended release 24 hr 02/23 completed Not Available Not Available Not Available budesonide DR-ER 9 mg tablet,wilman yed and extended release TAKE ONE TABLET BY MOUTH DAILY active Not Available Not Available No t Available Entyvio 300 mg intravenous solution Inject by intraveno us route. active Not Available Not Available No t Available mesalamine 400 mg capsule (with delayed release tablets inside) active Not Available Not Available Not Available Linzess 72 mcg capsule active Not Available Not Available Not Available Entyvio Pen 108 mg/0.68 mL subcutaneou s pen injector active Not Available Not Available Not Available Vitals Date Recorded Body temperature Oxygen saturation Oxygen saturation in Arterial blood by Pulse oximetry Heart rate Body weight Systolic And Diastolic Provider Name and Address Organization Details Last Updated DateTime 3 97.9 [degF] 97 % 97 % 74 /min 36656.7 g 122/70 mm[Hg] Analy Strong [facility] 3 09:16:13 Date Recorded Body height Body mass index (BMI) Body weight Provider Name and Address Organization Details Last Updated DateTime 05/30/2023 165.1 cm 28.3 kg/m2 33135.7 g [facility] 14:16:09 Social History Question Answer Notes LastModified by Organizat ion Details LastModified Time Tobacco Smoking Status Former Smoker Madeleine Mohamud [facility] 08/18/2020 13:05:15 Who Is Your Employer? [employer] [email or web address] Information not available 02/23/2023 Sex: Female Functional Status Question Answer Note LastModified by Organization D etails LastModified Time Are you currently employed? 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 Moderate Information not available 02/23/2023 Mental Status None recorded. Family History Nothing Reported. Medical History Condition Response Varicose Veins N Autoimmune disease Y Squamous Cell Carcinoma N Colon/Rectal Disorders Y Eczema N Melanoma N Asthma Y Acne Y Skin Problems Y Basal Cell Carcinoma N Heart Disease Other Skin Condition Y Gynecological HistoryNo gynecological history recorded. 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 Inflamed s eborrheic keratosis [id number] L82.0 Education, then cryodestru ction with liquid nitrogen (LN) x 2 [id number] JAMI CLEMONS [facility] [address] [place] [id number] 08/18/2020 12:54:21 08/21/2020 12:22:29 Cervical radiculopathy [id number] M54.12 Time spent reviewing images, discussing the diagnosis and coordinati ng care: 20min [id number] JAMI CLEMONS [facility] [address] [place] [address] 09/08/2020 09:11:05 09/08/2020 10:53:00 Cervical radiculopathy [id number] M54.12 Time spent reviewing images, discussing the diagnosis and coordinati ng care: 20min [id number] JAMI CLEMONS MD SURGERY SCHEDULE [address] [place] [address] 10/10/2020 06:23:35 10/10/2020 06:24:54 [id number] [facility] [address] [place] [address] 11/13/2020 08:30:44 11/17/2020 17:12:42 Postoperative care [id number] Z48.89 [id number] DEAN PAZ PA-C [facility] [address] [place] [address] 01/19/2021 08:55:02 01/20/2021 12:19:26 Lumbar radiculopathy [id number] M54.16 Postoperative visit [id number] Z09 HPI: Ms. Galvan is a 50-year-ol d female status post C5-C7 ACDF on 10/10/20 who presents today for second postop follow-up, last seen 11/13/20, with new AP lateral cervical x-rays. She says she is doing very well as far as her neck and arm symptoms go, with virtually no pain in her neck or arms, only some pressure when she attempts yoga poses like downward dog. She says now that her neck is better, she wanted to cervical back around to her low back, which she says is causing her a lot of pain, worsening over time. She says she has pain in her low back radiating to her left hip and left buttock, with known history of coccyx fracture when she gave as well as torn muscle in her left thigh, she is unsure which. She is active at home and stretching , yoga, and has attempted home physical therapy for her neck and low back without relief of low back pain. PHYSICAL EXAM: Cervical incision scar well-heale d without erythema, induration , swelling. Slightly weak left knee flexion and extension versus right. IMAGING: I have reviewed the images personally with Dr. Clemons and read the radiologis t's report.AP lateral cervical x-ray: Hardware intact, in place, no issues noted ASSESSMENT : Dr. Clemons also saw this patient. We will recommend her for formal physical therapy in addition to her home exercises. Also need to check flexion-ex tension lumbar x-ray as well as lumbar MRI to assess for stenosis in her lumbar spine that may be contributi ng to her low back pain and left lower extremity radiculopa thy. PLAN: Flexion extension lumbar x-rays Lumbar MRI without contrast Physical therapy lumbarWe will call her after these studies are completed, or she can call us, and we will make a plan from there based on the results of the MRI. If there is significan t stenosis in her lumbar spine, she may be a good tight candidate for lumbar surgery or targeted injections . Portions of this note have been dictated with voice Covestoritio n technology and may include transcript ion errors. [id number] BECCA NJ PA-C [facility] [address] [place] [address] 02/09/2021 11:26:27 02/12/2021 10:55:06 Lumbar radiculopathy [id number] M54.16 [id number] JAMI CLEMONS MD SURGERY SCHEDULE [address] [place] [address] 05/06/2021 10:05:14 05/08/2021 08:35:10 [id number] BASSAM LARSEN PA-C [facility] CL[facility] [address] [place] [address] 05/14/2021 14:43:12 05/18/2021 13:49:32 Postoperative care [id number] Z48.89 We'll see back in 2 weeks for a postop appointmen t [id number] JAMI CLEMONS MD [facility] [address] [place] [address] 06/01/2021 14:25:30 06/02/2021 09:07:39 Postoperative care [id number] Z48.89 [id number] DEAN PAZ PA-C [facility] [address] [place] [address] 09/14/2021 08:12:44 09/15/2021 09:35:06 Lumbar radiculopathy [id number] M54.16 [id number] MAXIMUS LR MD [facility] CLOSED [address] [place] [address] 02/23/2023 08:42:52 02/23/2023 12:44:00 Degeneration of lumbar intervertebral disc 92222774 M51.36 Inflammati on of sacroiliac joint 01513654 M46.1 Lumbar post-laminectomy syndrome 981051262 M96.1 [id number] MAXIMUS LR MD [facility] PROFESSIO NAL CHARGES [address], [address] [place] [address] 03/15/2023 12:11:35 03/17/2023 16:07:56 Inflammation of sacroiliac joint 16622971 M46.1 [id number] KRISTINA AKBAR PA-C [facility]IC[facility] CLOSED [address] [place] [address] 04/11/2023 08:40:48 04/11/2023 11:55:19 Inflammation of sacroiliac joint 35314692 M46.1 Degenerati on of lumbar intervertebral disc 23195635 M51.36 Lumbar post-laminectomy syndrome 716163608 M96.1 Neck pain 89742168 M54.2 [id number] BECCA NJ PA-C [facility]G [facility] CL[facility] [address] [place] [address] 05/30/2023 13:51:03 06/02/2023 15:45:38 Lumbar radiculopathy 099644317 M54.16 Thoracic back pain 70249 8004 M54.6 [id number] MAXIMUS LR MD [facility] [address] [facility] PROFESSIO NAL CHARGES [address], [address] [place] [address] 06/24/2023 12:58:38 06/28/2023 11:17:44 Lumbar radiculopathy 015937047 M54.16 [id number] MILADIS DEE MD DERMATOLO [facility] [address] [place] [address] 11/12/2024 13:49:33 11/12/2024 14:27:28 Actinic keratosis 405647183 L57.0 CRYO X 2RISKS OF CRYO SURGERY DISCUSSED; POST OP CARE INSTRUCTIO NS PROVIDED. VERBAL CONSENT TO TREAT GIVEN BY PATIENT. 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 Discussed SEs of doxycyclin eTake with a meal-can cause upset stomachf/u 2 months Inflamed s eborrheic keratosis 027903802 L82.0 - Itchy and inflamed. Pt would like to have these treated with cryo [place] 067783320 L56.8 Sun protection and regular annular skin checks recommende d Health Concerns Section Related Observation LastModified by Organization Detai ls LastModified Time None Recorded Concern Status LastModified by Organization Details LastModified Time None Recorded Advance Directives Directive None Recorded Payers Insurance Date Sequence Insurance Name Policy Number Policy Bernstein Covered Member ID Bernstein Member ID Guarantor Name 01/04/2025 1 [place] [id number] Ester Galvan [id number] Ester Galvan 11/20/2020 PAYMENT PLAN Ester Galvan Notes Date Note Type Note Provider Name and Address Organization Details Recorded Time 04/11/2023 text/html Injection follow upReported bypatient.Most recent procedures:joint injection (SI Left); date: (03/15/23) % of reliefpain relief 60% Duration of relief:ongoing Severity:current pain 5/10; average pain 5/10 Woundinjection site healed well; no fever; no bleeding KRISTINA AKBAR PA-C [address] [place], [address], [facility] 04/11/2023 10:00:16 05/30/2023 text/html Ms. Galvan is a [age] year old female s/p L5-S1 TLIF on 04/29/21 and C5-7 ACDF on 10/10/[address] Clemons. She returns to the office with complaint of pain in her left lateral that and calf to just above her ankle. She had an SI joint injection with Dr. Lr in September that helped her pain for some time. She had another injection in February which helped for the first few days, but then she had diffuse joint pain after receiving IV contrast, and no longer had improvement from the injection.She also describes pain in her thoracic spine and the inferior border of her shoulder blades. She has tension in her neck that is associated with headaches. She takes robaxin, gabapentin, and hydrocodone with some improvement. She has had recent MRIs of her cervical and lumbar spine. BECCA NJ PA-C [address] [place], [address], [facility] 06/01/2023 14:17:30 11/12/2024 text/html New patient- Pili f [id number] y/o F presents to clinic today for skin check. She is also c/o a red scaly rash on her face, not improving with TAC cream. She is here for lesions on chest and back of right thighPt is on Entyvio for ulcerative colitisPersonal h/o of skin cancer: NoneJust returned [facility] Denies any other new or changing lesions. Feels well today. Denies family history of malignant melanoma. MILADIS DEE MD [facility] [place], [address], [facility] 11/12/2024 18:25:34 OBGyn Episode No OBEpisode recorded.
--- NOTE | 2025-03-28 06:30 | NM_ITS ---
APPROVED REPORT Exam: Nuclear Stress Test Indication: soa..palpitations..fatigue Patient Location: Outpatient Stress Tech: Ashleigh Alejo [place] Tech:SILVESTRE Yost RT(R)(N) Ht: 5 ft 6 in Wt: 170 lbs Bra Size: 38d HR: 82 bpm BP: 126/85 mmHg BSA: 1.87 m2 TID: 1.23 BMI: 27.4 History: soa..palpitations..fatigue Procedure: Patient received 0.4 mg of intravenous Lexiscan, resting heart rate 82 bpm, resting blood pressure 126/85 mmHg, with Lexiscan maximum heart rate achieved was 111 bpm which is 85 % of the maximum predicted heart rate and blood pressure was 155/88 mmHg. With Lexiscan, patient denied any complaint of chest pain. Cardiac Stress and Resting SPECT Images: Cardiac Stress and Resting SPECT images were obtained using technetium 99m Myoview 30.6 mCi stress and 10.63 mCi at rest. Thing and stress imaging in supine and prone positions demonstrate no evidence of fixed or reversible perfusion defects. There is increase in transit ischemic dilatation ratio (TID 1.23), which may be suggestive of multivessel disease or balanced ischemia. Gated imaging demonstrates normal global and regional LV systolic function. LVEF is calculated at 64%. Conclusion: No evidence of fixed or reversible perfusion defects. There is increase in transit ischemic dilatation ratio (TID 1.23), which may be suggestive of multivessel disease or balanced ischemia. Gated imaging demonstrates normal global and regional LV systolic function. LVEF is calculated at 64%. In the setting of young age, normal LV systolic function and presence of TID, further evaluation noninvasively with CCTA may be suggested prior to proceeding with invasive coronary angiography, if clinically indicated and feasible. Electronically signed by : Jess Chua MD 03/30/2025 01:11:33
--- NOTE | 2025-03-28 08:45 | CA_ITS ---
APPROVED REPORT EXAM: Comprehensive 2D, Doppler, and color-flow Echocardiogram Operations Administrator: Alaina Schulte RVT Ht: 5 ft 5 in Wt: 172lbs BSA: 1.86 BP: 133/91 mmHg Indications: Shortness of Breath,Chest pain,Fatigue 2D Dimensions Left Atrium 2.80 cm F: 2.7 - 3.8 LA Volume 18.40 mL RVID Base (AP4) 2.03 cm (M/F) 2.5-4.1 LA Volume Index 9.89 mL/m2 (M/F) 16-34 LVOT 2.16 cm (M/F) 1.5-2.5 EF AP4 55.50 % GL Strain -20.1 % M-Mode Dimensions RVDd 2.16 cm (0.9-2.6) LVDd 3.88 cm (3.5-5.7) Ao Diam 2.55 cm (2.0-3.7) LVDs 2.33 cm (3.5-5.7) IVSd 0.64 cm (0.6-1.1) PWd 0.34 cm (0.6-1.1) EF (Teich) 71.30% FS 39.90% EDV (Teich) 65.10 mL TAPSE 1.94 (<1.7) ESV (Teich) 18.70 mL LV Diastology E Decel Time 178 (160-240 msec) E/A Ratio 1.1 MED E' 6.5 (>= 7 cm/sec) E'/MED E' Ratio 8.43 (<= 14) LAT E' 10.4 (>= 10 cm/sec) E/LAT E' Ratio 5.27 (<= 14) Aortic Valve LVOT Max 78.0 (70-110 cm/s) SWATHI Index 1.07 cm2/m2 LVOT VTI 13.72 cm AoV Peak Dwight. 110.0 (50-130 cm/s) AO Peak GR. 5.00 mmHg AO Mean GR. 2.90 (<5 mmHg) AO VTI 25.3 (18-25 cm) SWATHI (VTI) 1.99 (2.5-4.5 cm2) Mitral Valve MV E Max Dwight. 55.0 (40-130 cm/s) MV A Velocity 50.0 (40-130 cm/s) E/A Ratio 1.09 MV Decel. Time 178 (160-240 ms) Left Ventricle The left ventricle is normal size. The left ventricular systolic function is normal. The left ventricular ejection fraction is within the normal range. There is normal left ventricular wall thickness. There is normal LV segmental wall motion. The left ventricular diastolic function is normal. LVEF is 55%. Right Ventricle The right ventricle is normal size. The right ventricular systolic function is normal. Atria The left atrium size is normal. The right atrium size is normal. There is no Doppler evidence of interatrial shunt. Aortic Valve The aortic valve opens well. There is no aortic valvular stenosis. No aortic regurgitation is present. Mitral Valve The mitral valve is normal in structure. No evidence of mitral valve stenosis. There is no mitral valve regurgitation noted. Tricuspid Valve Tricuspid valve is grossly normal in structure and function. Trace tricuspid regurgitation. There is insufficient TR jet to estimate RVSP. Pulmonic Valve The pulmonary valve is normal in structure. Trace pulmonic regurgitation. Great Vessels The aortic root is not well visualized. IVC is normal in size and collapses >50% with inspiration. Pericardium There is no pericardial effusion. Other Information Study Quality: Adequate Conclusion Normal biventricular systolic function. No significant valvular stenosis or regurgitation. Electronically signed by : Jess Chua MD 04/06/2025 15:10:27
[2025-03-28] MEDS: ISOTOPE MYOVIEW (PER STUDY) 1 DOSE IV (09:17)
[2025-03-28] MEDS: SODIUM CHLORIDE 0.9% 10ML SYR (RAD ONLY) 10 ML IV ×2 (09:17)
== END 2025-03-28 23:59 | disposition home or self-care (01) ==
PROVIDERS: PCP Family Medicine; Visit Provider Nurse Practitioner
DX: R94.39 Abnormal result of other cardiovascular function study (principal); R94.31 Abnormal electrocardiogram [ECG] [EKG]; R06.02 Shortness of breath; R00.2 Palpitations; R53.83 Other fatigue; R07.89 Other chest pain
CPT/HCPCS: 78452; 93016; 93017; 93018; 93306; A9502; J2785

== ENCOUNTER 2025-04-30 07:48 | Outpatient (CLI) | payer BC, SELFPAY ==
--- OUTSIDE RECORDS SUMMARY | 2025-04-30 07:51 | XMS_ITS | Encounter Summary ---
Author Organization [employer] ([place], [place], [place], [place]) Address [address] [place] [address] Care Team Providers Care Parking Lot Spotter Name Role Phone Unavailable Primary Care Provider Unavailabl e Encounter Details Date Type Department Care Team (Late st Contact Info) Description 04/29/2021 Transcribed Document [facility] Family Medicine [facility] [place] [address] ProviderLatisha MD [address] [place] [address] Social History Tobacco Use Types Packs/Day Years Used Date Smoking Tobacco: Never Assessed Comments Unknown Sex and Gender Information Value Date Recorded Sex Assigned at Not on file Legal Sex Female 5:30 PM CDT Gender Identity Not on file Sexual Orientation Not on file documented as of this encounter Miscellaneous Notes * Cerner Conversion Note - Historical ProviderMD - 04/29/2021 11:33 AM CDT Pain [...]
--- OUTSIDE RECORDS SUMMARY | 2025-04-30 07:51 | XMS_ITS | Encounter Summary ---
Author Organization [facility] Address [address] [place] [address] Care Team Providers Care Property Developer Name Role Phone Mehdi Gross MD Primary Care Provider + Reason for Visit * Reason Onset Date Comments Med Refill 03/19/2025 Encounter Details Date Type Department Care Team (Late st Contact Info) Description 03/19/2025 Refill [facility] [address] [place] [address] Mehdi Gross MD [address] [place] [address] Degenerative disc disease, lumbar; Degenerative disc disease, lumbar; Anxiety; Other osteoarthritis of spine, cervical region Social History Tobacco Use Types Packs/Day Years Used Date Smoking Tobacco: Former Cigarettes 0.5 19 1 986 - 2005 Smokeless Tobacco: Never Alcohol Use Standard Drinks/Week Comments Not Currently 0 (1 standard drink = 0.6 oz pur e alcohol) PHQ-2 Answer Date Recorded Retired PHQ-9: Brief Depression Severity Measure Score 1 04/18/2023 PHQ-2 Answer Date Recorded Patient Health Questionnaire-2 Score 0 12/20/2024 Comments No Sex and Gender Information Value Date Recorded Sex Assigned at Female 12/13/2024 3:16 PM EDT Legal Sex Female 1:52 PM EDT Gender Identity Not on file Sexual Orientation Straight 12/13/2024 3: 16 PM EDT documented as of this encounter Plan of Treatment Upcoming Encounters Date Type Department Care Team (Late st Contact Info) Description 06/18/2025 8:00 AM EDT Office Visit [facility] [address] [facility] [place] [address] Mehdi Gross MD [address] [place] [address] documented as of this encounter Visit Diagnoses Diagnosis Degenerative disc disease, lumbar Anxiety Anxiety state, unspecified Other osteoarthritis of spine, cervical region documented in this encounter Additional Health Concerns Assessment Noted Time PHQ-2 Depression Total Score: 1 12/05/19 24 8:18 AM EDT documented as of this encounter Care Teams Property Developer Relationship Specialty Start Date End Date Mehdi Gross MD PCP - General Family Medicine 04/21/17 documented as of this encounter
--- OUTSIDE RECORDS SUMMARY | 2025-04-30 07:51 | XMS_ITS | Encounter Summary ---
Author Organization [employer] ([place], [place], [place], [place]) Address [address] [place] [address] Care Team Providers Care Radiation Physicist Name Role Phone Unavailable Primary Care Provider Unavailabl e Encounter Details Date Type Department Care Team (Late st Contact Info) Description 04/29/2021 Transcribed Document [facility] Family Medicine [facility] [place] [address] ProviderLatisha MD [address] [place] [address] Social History Tobacco Use Types Packs/Day Years Used Date Smoking Tobacco: Never Assessed Comments Unknown Sex and Gender Information Value Date Recorded Sex Assigned at Not on file Legal Sex Female 5:30 PM CDT Gender Identity Not on file Sexual Orientation Not on file documented as of this encounter Miscellaneous Notes * Cerner Conversion Note - Historical ProviderMD - 04/29/2021 11:00 PM CDT Pain [...] form. Electronically signed by Brendon Givens Conversion Cap And Stud Machine Operator Cerner at 01/04/2023 1:08 PM CDT documented in this encounter Plan of Treatment Not on file documented as of this encounter Visit Diagnoses Not on filedocumented in this encounter
--- OUTSIDE RECORDS SUMMARY | 2025-04-30 07:51 | XMS_ITS | Encounter Summary ---
Author Organization [employer] ([place], [place], [place], [place]) Address [address] [place] [address] Care Team Providers Care Rehab Consultant Name Role Phone Unavailable Primary Care Provider Unavailabl e Encounter Details Date Type Department Care Team (Late st Contact Info) Description 04/30/2021 Transcribed Document [facility] [place] Family Medicine [facility] [place] [address] ProviderLatisha MD [address] [place] [address] Social History Tobacco Use Types [...] On: 04/30/2021 14:44 EDT by PAT FISH RN-Manager Of Community Relations Initial Assessment I Previously Documented Living Environment [...] ` Enter Doctors Name : ASAEL GOTTLIEB MD-[facility] Does Patient have PCP Listed? : Yes PAT FISH RN-Manager Of Community Relations - 04/30/2021 14:44 EDT Initial Assessment II Sensory and Motor Deficits : None Current Home Treatments and Equipment : Walker Does the Patient have a Floor to SNF Benefit? : No VAP, PAT A, RN-Manager Of Community Relations - 04/30/2021 14:44 EDT Discharge Needs I Anticipated Discharge Date : 05/01/2021 EDT Anticipated Discharge To, CM : Home with home health Current Home Treatment/Equipment : Current Home Treatment/Equipment No qualifying data available. Post Acute/Home Treatments : None Documentation Status Complete : Yes PAT FISH RN-Manager Of Community Relations - 04/30/2021 14:44 EDT Discharge Needs II Professional Skilled Services : Professional Skilled Services No qualifying data available. Needs Assistance with Transportation : No Discharge Options Discussed with Patient : Home Health Patient Discharge Goal : Home health care PAT FISH RN-Manager Of Community Relations - 04/30/2021 14:44 EDT Narrative Note Narrative Note : 51yo female pt s/p L5-S1 TLIF. Pt ambulated 60ft yesterday, 100ft this am, and 40ft this pm. Met with pt and spouse at bedside to discuss DCP. Pt has a walker at home. She agrees to for PT and has no PHOTONICS ENGINEER preference. Referral sent via mary and confirmed acceptance with [facility]. Pain is not managed on po meds. Likely dc home with HH tomorrow 05/01. CM will follow. PAT FISH RN-Manager Of Community Relations - 04/30/2021 14:44 EDT documented in this encounter Plan of Treatment Not on file documented as of this encounter Visit Diagnoses Not on filedocumented in this encounter
--- OUTSIDE RECORDS SUMMARY | 2025-04-30 07:51 | XMS_ITS | Encounter Summary ---
Author Organization [employer] ([place], [place], [place], [place]) Address [address] [place] [address] Care Team Providers Care Manager Economic Name Role Phone Unavailable Primary Care Provider Unavailabl e Encounter Details Date Type Department Care Team (Late st Contact Info) Description 04/29/2021 Transcribed Document [facility] - [address] [employer] [facility] [address] [place] [address] Maldonado Clemons MD [address] [place] [address] Social History Tobacco Use Types [...] PRN: as needed for constipation, 0 Refill(s) Winfield 10 mg-325 mg oral tablet: 1 Tab, [...] Stool Softener 100 mg, PRN, Oral, BID Winfield 10 mg-325 mg oral tablet 1 Tab, PRN, Oral, Q6H PriLOSEC 20 mg, Oral, BID Robaxin 500 mg oral tablet 500 mg = 1 Tab, PRN, Oral, QID Vitamin C 1,000 mg, Oral, Daily , No qualifying data available Problem list: All Problems Ulcerative colitis / SNOMED CT 958169335 / Confirmed Scoliosis / SNOMED CT 687885698 / Confirmed PFO (patent foramen ovale) / SNOMED CT 404143106 / Confirmed Migraine / SNOMED CT 28821246 / Confirmed Back pain / SNOMED CT 503518747 / Confirmed Asthma / SNOMED CT 147618037 / Confirmed Arthritis / SNOMED CT 8185392 / Confirmed Anxiety / SNOMED CT 05933105 / Confirmed, Active Problems (8) Anxiety Arthritis Asthma Back pain with LLE radiculopathy Migraine PFO (patent foramen ovale) Scoliosis Ulcerative colitis Histories Past Medical History: No active or resolved past medical history items have been selected or recorded. Family History: No family history items have been selected or recorded. Procedure history: Tubal ligation ([id number]). Cholecystectomy (77288513). uterine ablation. neck surgery. Social History Social [...] ROM back, LLE weakness. Integumentary: Warm, Dry, [place]. Neurologic: Alert, Oriented. Psychiatric: Cooperative, Appropriate mood [...]
--- OUTSIDE RECORDS SUMMARY | 2025-04-30 07:51 | XMS_ITS | Encounter Summary ---
Author Organization [employer] ([place], [place], [place], [place]) Address [address] [place] [address] Care Team Providers Care Radial Drill Press Set Up Operator Name Role Phone Unavailable Primary Care Provider Unavailabl e Encounter Details Date Type Department Care Team (Late st Contact Info) Description 04/29/2021 Transcribed Document [facility] [place] Family Medicine [facility] [place] [address] ProviderLatisha MD [address] [place] [address] Social History Tobacco Use Types [...] Latisha ProviderMD - 04/29/2021 8:52 AM CDT [facility] Main OR PACU Summary Primary Physician: JAMI ISLAS MD-SNU Finalized Date/Time: 04/29/21 12:55:12 Pt. Name: GALVANESTER SHADY Valencia/Sex: 1970 Female Med Rec #: [id number] Physician: JAMI ISLAS MD-SNU Financial #: [id number] Pt. Type: O Room/Bed: [facility]/1 Admit/Disch: 04/29/21 06:48:00 - Institution: [facility] Main OR PACU I Case Times Entry 1 In PACU I 04/29/21 10:45:00 Ready for PACU 04/29/21 12:10:00 Discharge Discharge from PACU 04/29/21 12:10:00 I Last Modified By: AP BLACKWELL RN 04/29/21 12:31:10 Finalized By: AP BLACKWELL, RN Document Signatures Signed By: AP BLACKWELL RN 04/29/21 12:55 documented in this encounter Plan of Treatment Not on file documented as of this encounter Visit Diagnoses Not on filedocumented in this encounter
--- OUTSIDE RECORDS SUMMARY | 2025-04-30 07:51 | XMS_ITS | Encounter Summary ---
Author Organization [employer] ([place], [place], [place], [place]) Address [address] [place] [address] Care Team Providers Care Editorial Director Name Role Phone Unavailable Primary Care Provider Unavailabl e Encounter Details Date Type Department Care Team (Late st Contact Info) Description 04/29/2021 Transcribed Document [facility] [place] Family Medicine [facility] [address] ProviderLatisha MD [address] [place] [address] Social History Tobacco Use Types Packs/Day Years Used Date Smoking Tobacco: Never Assessed Comments Unknown Sex and Gender Information Value Date Recorded Sex Assigned at Not on file Legal Sex Female 5:30 PM CDT Gender Identity Not on file Sexual Orientation Not on file documented as of this encounter Miscellaneous Notes * Cerner Conversion Note - Historical ProviderMD - 04/29/2021 3:00 PM CDT Pain [...]
--- OUTSIDE RECORDS SUMMARY | 2025-04-30 07:51 | XMS_ITS | Encounter Summary ---
Author Organization [employer] ([place], [place], [place], [place]) Address [address] [place] [address] Care Team Providers Care Hatchery Employee Name Role Phone Unavailable Primary Care Provider Unavailabl e Encounter Details Date Type Department Care Team (Late st Contact Info) Description 04/30/2021 Transcribed Document [facility] Family Medicine [facility] [place] [address] ProviderLatisha MD [address] [place] [address] Social History Tobacco Use Types [...]
--- OUTSIDE RECORDS SUMMARY | 2025-04-30 07:51 | XMS_ITS | Encounter Summary ---
Author Organization [employer] ([place], [place], [place], [place]) Address [address] [place] [address] Care Team Providers Care Apparel Manager Name Role Phone Unavailable Primary Care Provider Unavailabl e Encounter Details Date Type Department Care Team (Late st Contact Info) Description 04/30/2021 Transcribed Document [facility] Family Medicine [facility] [address] ProviderLatisha MD [address] [place] [address] Social History Tobacco Use Types [...] version of the form. Electronically signed by Chon, Brendon Conversion Transportation Department Supervisor Cerner at 01/09/2023 1:12 PM CDT documented in this encounter Plan of Treatment Not on file documented as of this encounter Visit Diagnoses Not on filedocumented in this encounter
--- OUTSIDE RECORDS SUMMARY | 2025-04-30 07:51 | XMS_ITS | Encounter Summary ---
Author Organization [employer] ([place], [place], [place], [place]) Address [address] [place] [address] Care Team Providers Care Loss Prevention Consultant Name Role Phone Unavailable Primary Care Provider Unavailabl e Encounter Details Date Type Department Care Team (Late st Contact Info) Description 04/30/2021 Transcribed Document [facility] [address] [facility] [address] [place] [address] Jami Clemons MD [address] [place] [address] Social History Tobacco Use Types [...]
--- OUTSIDE RECORDS SUMMARY | 2025-04-30 07:51 | XMS_ITS | Encounter Summary ---
Author Organization [employer] ([place], [place], [place], [place]) Address [address] [place] [address] Care Team Providers Care Tomahawk Weapon System Operator Name Role Phone Unavailable Primary Care Provider Unavailabl e Encounter Details Date Type Department Care Team (Late st Contact Info) Description 04/30/2021 Transcribed Document [facility] [place] [facility] [place] [address] ProviderLatisha MD [address] [place] [address] Social History Tobacco Use Types Packs/Day Years Used Date Smoking Tobacco: Never Assessed Comments Unknown Sex and Gender Information Value Date Recorded Sex Assigned at Not on file Legal Sex Female 5:30 PM CDT Gender Identity Not on file Sexual Orientation Not on file documented as of this encounter Miscellaneous Notes * Cerner Conversion Note - Historical ProviderMD - 04/30/2021 9:06 AM CDT Stroke/Warfarin [...]
--- OUTSIDE RECORDS SUMMARY | 2025-04-30 07:51 | XMS_ITS | Encounter Summary ---
Author Organization [employer] ([place], [place], [place], [place]) Address [address] [place] [address] Care Team Providers Care Information Security Engineer Name Role Phone Unavailable Primary Care Provider Unavailabl e Encounter Details Date Type Department Care Team (Late st Contact Info) Description 04/29/2021 Transcribed Document [facility] [place] [facility] [place] [facility] [place] [address] ProviderLatisha MD [address] [place] [address] Social History Tobacco Use Types [...]
--- OUTSIDE RECORDS SUMMARY | 2025-04-30 07:51 | XMS_ITS | Encounter Summary ---
Author Organization [employer] ([place], [place], [place], [place]) Address [address] [place] [address] Care Team Providers Care Drill Press Operator Numerical Control Name Role Phone Unavailable Primary Care Provider Unavailabl e Encounter Details Date Type Department Care Team (Late st Contact Info) Description 04/29/2021 Transcribed Document [facility] [place] [facility] [place] [address] ProviderLatisha MD [facility] [place] [address] Social History Tobacco Use Types Packs/Day Years Used Date Smoking Tobacco: Never Assessed Comments Unknown Sex and Gender Information Value Date Recorded Sex Assigned at Not on file Legal Sex Female 5:30 PM CDT Gender Identity Not on file Sexual Orientation Not on file documented as of this encounter Miscellaneous Notes * Cerner Conversion Note - Historical ProviderMD - 04/29/2021 6:47 AM CDT Admission [...] Info Legal Guardian : Spouse Support Person/Patient Sap Abap Developer : Yes Support Person/Pt Rep Name : Hector Bernardo - Support Person/Pt Rep Contact Information : [phone] Want Family/Rep/Phys Notified of Admit : No Emergency Contact #1 : Hector Bernardo Emergency Contact #1 Emergency Contact #1 Relationship : Emergency Contact #2 : ` Emergency Contact #2 Phone Number : ` Emergency Contact #2 Relationship : ` Information Obtained From : Patient Primary Language : Bahraini Communication Barrier : None Creative Engagement Director Needed : No MARIANNE ALFONSO RN - [...] Scale Risk Level : 25-45 Medium Risk [place] Fall Interventions : Adequate lighting, Assistive devices [...] Smokeless Tobacco Status : Never Implant/Device Type, Parole Board Member and Model : hardware in neck MARIANNE [...] Source : Measured Height Entry Format : Cocke Height, Feet : 5 ft(Converted to: 152 cm, 60 Inch) Height, Inches : 6 Inch(Converted to: 0 ft 6 Inch, 15.24 cm) Clinical Height : 167.64 cm Weight Source : Standing scale Weight Entry Format : Cocke Clinical Dosing Weight : 79.09 kg Weight, Pounds : 174 lb Body Surface Area (BSA) : 1.89 m2 Body Mass Index : 28.1 kg/m2 (HI) [place] Body Weight : 59 kg MARIANNE ALFONSO [...] MARIANNE ALFONSO RN - 04/29/2021 12:46 EDT Noble Suicide Severity Rating Scale (C-SSRS) CSSRS Past [...] : Yes Spiritual/Cultural Needs Comment : 04/29 Anabaptist Preference : Mosque Spiritual/Cultural Needs Comment : 04/29 MARIANNE ALFONSO [...]
--- OUTSIDE RECORDS SUMMARY | 2025-04-30 07:51 | XMS_ITS | Encounter Summary ---
Author Organization [employer] ([place], [place], [place], [place]) Address [address] [place] [address] Care Team Providers Care Pulpit Operator Name Role Phone Unavailable Primary Care Provider Unavailabl e Encounter Details Date Type Department Care Team (Late st Contact Info) Description 04/29/2021 Transcribed Document [facility] [place] [facility] [place] [address] ProviderLatisha MD [address] [place] [address] Social History Tobacco Use Types Packs/Day Years Used Date Smoking Tobacco: Never Assessed Comments Unknown Sex and Gender Information Value Date Recorded Sex Assigned at Not on file Legal Sex Female 5:30 PM CDT Gender Identity Not on file Sexual Orientation Not on file documented as of this encounter Miscellaneous Notes * Cerner Conversion Note - Historical ProviderMD - 04/29/2021 4:22 PM CDT Treatment [...] : Assistive Devices No Devices Recorded SHELIA KEVIN PT - 04/30/2021 11:44 EDT General Status [...] Actual Treatment Time : 33 Minute(s) SHELIA KEVIN, PT - 04/30/2021 11:44 EDT Therapeutic Activities Sitting Activities Grid Activity #1 Activities : Reaching (Comment: OTx ed for ADL with NO Bending/twisting pt dressed with supervision and ed on use of adaptive eqipment [SHELIA KEVIN, PT - 04/30/2021 11:44 EDT] ) SHELIA KEVIN, PT - 04/30/2021 11:44 EDT Therapeutic Exercises [...] Use of Assistive Device : Returns demonstration SHELIA KEVIN PT - 04/30/2021 11:44 EDT Plan of Care, PT PT Tx Plan/Goals Established w Patient : Yes SHELIA KEVIN PT - 04/30/2021 11:44 EDT Long-Term Goals Mobility/Bed Mobility LTG PT Grid Goal #1 Goal #2 Activity : Supine to sit Sit to stand Assist : Independent, complete Independent, modified Date to Meet : 05/13/2021 EDT 05/13/2021 EDT Goal Status : Intial Goal Progressing, continue SHELIA KEVIN PT - 04/30/2021 11:44 EDT SHELIA KEVIN PT - 04/30/2021 11:44 EDT Ambulation LTG Grid Goal #1 Device : Walker, front wheel Distance : 250' Assist : Independent, modified Date to Meet : 05/13/2021 EDT Goal Status : Progressing, continue SHELIA KEVIN PT - 04/30/2021 11:44 EDT Treatment Note [...] Continued Therapy at Discharge : No SHELIA KEIVN PT - 04/30/2021 11:[address] [facility] PT Charges PT Ther Activities Ea 15 Min : 1 Gait Training Each 15 Min : 1 SHELIA KEVIN PT - 04/30/2021 11:44 EDT documented in this encounter Plan of Treatment Not on file documented as of this encounter Visit Diagnoses Not on filedocumented in this encounter
--- OUTSIDE RECORDS SUMMARY | 2025-04-30 07:51 | XMS_ITS | Encounter Summary ---
Author Organization [employer] ([place], [place], [place], [place]) Address [address] [place] [address] Care Team Providers Care Relationship Executive Name Role Phone Unavailable Primary Care Provider Unavailabl e Encounter Details Date Type Department Care Team (Late st Contact Info) Description 04/30/2021 Transcribed Document [facility] Radiology [address] [place] [address] Janice Pan MD [facility] [address] [place] [address] Social History Tobacco Use Types [...] female with spinal stenosis who presented to [facility] for lumbar fusion by Dr. Clemons. Pt has failed outpt conservative therapy and elected for surgical intervention. We are asked to follow for postop medical management. Initial visit on floor --- Denies prior stroke or seizure. Denies [place], CHF or cardiac arrhythmia. Denies DM. Denies [...] ovale) Scoliosis Ulcerative colitis PSHx: Tubal ligation ([id number]). Cholecystectomy ([id number]). uterine ablation. neck surgery FHx: Mother - [...] injectable kit gabapentin 100 mg oral capsule [place] 10 mg-325 mg oral tablet 1 Tab, PRN, Oral, Q6H [place] 7.5 mg-325 mg oral tablet 1 Tab, [...] (APR 29 10:50) MAP 69 (APR 30 05:) 69 (APR 30 05:03) 99 (APR 29 [...]
--- OUTSIDE RECORDS SUMMARY | 2025-04-30 07:51 | XMS_ITS | Encounter Summary ---
Author Organization [employer] ([place], [place], [place], [place]) Address [address] [place] [address] Care Team Providers Care Artificial Flowers Supervisor Name Role Phone Unavailable Primary Care Provider Unavailabl e Encounter Details Date Type Department Care Team (Late st Contact Info) Description 04/29/2021 Transcribed Document [facility] [place] [address] ProviderLatisha MD [address] [place] [address] Social History Tobacco Use Types Packs/Day Years Used Date Smoking Tobacco: Never Assessed Comments Unknown Sex and Gender Information Value Date Recorded Sex Assigned at Not on file Legal Sex Female 5:30 PM CDT Gender Identity Not on file Sexual Orientation Not on file documented as of this encounter Miscellaneous Notes * Cerner Conversion Note - Historical ProviderMD - 04/29/2021 8:52 AM CDT [facility] Main OR Preop Summary Primary Physician: JAMI ISLAS MD-CAITLIN Finalized Date/Time: 04/29/21 11:31:38 Pt. Name: COLE ESTERAZEB Valencia/Sex: 1970 Female Med Rec #: [id number] Physician: JAMI ISLAS MD-SNU Financial #: [id number] Pt. Type: O Room/Bed: Admit/Disch: 04/29/21 06:48:00 - Institution: [facility] PreOp Case Times Entry 1 In Preop 04/29/21 05:49:00 Ready for Holding n/a Room Patient Ready for 04/29/21 07:20:00 Surgery Patient Out of Preop 04/29/21 08:00:00 Patient Out of n/a Holding Room Last Modified By: Carol Ga RN 04/29/21 11:31:36 [facility] PreOp Case Times Audit 04/29/21 11:31:36 Respiratory Therapy Instructor: [id number] Modifier: [id number] <+> 1 Patient Out of Preop 04/29/21 07:30:10 Respiratory Therapy Instructor: [id number] Modifier: [id number] <+> 1 Patient Ready for Surgery Finalized By: Carol Ga, RN Document Signatures Signed By: Carol Ga RN 04/29/21 11:31 documented in this encounter Plan of Treatment Not on file documented as of this encounter Visit Diagnoses Not on filedocumented in this encounter
--- OUTSIDE RECORDS SUMMARY | 2025-04-30 07:51 | XMS_ITS | Encounter Summary ---
Author Organization [employer] ([place], [place], [place], [place]) Address [address] [facility] [place] [address] Care Team Providers Care Knockdown Man Name Role Phone Unavailable Primary Care Provider Unavailabl e Encounter Details Date Type Department Care Team (Late st Contact Info) Description 04/29/2021 Transcribed Document [facility] Neurology - [address] [facility] [address] [place] [address] Maldonado Clemons MD [address] [place] [address] Social History Tobacco Use Types [...] intraoperative CT scan and spinal stereotactic navigation. OUTBOARD SYSTEM OPERATOR: Maynor Ortiz PA-C. TYPE OF ANESTHESIA: GEA. [...] of the segment using stereotactic navigation and DirectRM Prime System pedicle screws were placed at L5 [...] LOSS: 50 mL. DRAINS: None. COMPLICATIONS: None. /[id number] MD JESSICA Cruz/AQ / JESSICA / MODL /[id number] CC: Ricardo Curtis MD documented in this encounter Plan of Treatment Not on file documented as of this encounter Visit Diagnoses Not on filedocumented in this encounter
--- OUTSIDE RECORDS SUMMARY | 2025-04-30 07:51 | XMS_ITS | Encounter Summary ---
Author Organization [employer] ([place], [place], [place], [place]) Address [address] [place] [address] Care Team Providers Care Circuit Designer Name Role Phone Unavailable Primary Care Provider Unavailabl e Encounter Details Date Type Department Care Team (Late st Contact Info) Description 04/29/2021 Transcribed Document [facility] [place] [facility] [place] [address] ProviderLatisha MD [address] [place] [address] Social History Tobacco Use Types Packs/Day Years Used Date Smoking Tobacco: Never Assessed Comments Unknown Sex and Gender Information Value Date Recorded Sex Assigned at Not on file Legal Sex Female 5:30 PM CDT Gender Identity Not on file Sexual Orientation Not on file documented as of this encounter Miscellaneous Notes * Cerner Conversion Note - Historical ProviderMD - 04/29/2021 3:48 PM CDT Treatment [...] Treatment Time : 32 Minute(s) KIM STEPHENS OTR/Michelle - 04/30/2021 14:59 EDT Self Care/Home Management, OT Upper Body Dressing Assist Level, OT : Supervision or set-up Lower Body Dressing Assist Level, OT : Supervision or set-up KIM STEPHENS OTR/Michelle - 04/30/2021 14:59 EDT Functional Mobility Mobility Grid Sit to Stand : Supervision/set-up Bed to Chair : Supervision/set-up Stand to Sit : Supervision/set-up KIM STEPHENS OTR/Michelle - 04/30/2021 14:59 EDT Plan of Care, OT OT Tx Plan/Goals Established w Patient : Yes KIM STEPHENS OTR/Michelle - 04/30/2021 14:59 EDT Shelter Goals, OT Grooming LTG Grid Goal #1 [...] KIM STEPHENS OTR/Michelle - 04/30/2021 14:59 EDT Treatment Note Subjective [...] Treatment : Cont OT POC KIM STEPHENS OTR/Michelle - 04/30/2021 14:59 EDT Pain Assessment Pain [...] Ea 15 Min : 1 KIM STEPHENS OTR/Michelle - 04/30/2021 14:59 EDT documented in this encounter Plan of Treatment Not on file documented as of this encounter Visit Diagnoses Not on filedocumented in this encounter
--- OUTSIDE RECORDS SUMMARY | 2025-04-30 07:51 | XMS_ITS | Encounter Summary ---
Author Organization [employer] ([place], [place], [place], [place]) Address [address] [place] [address] Care Team Providers Care Cooler Supervisor Name Role Phone Unavailable Primary Care Provider Unavailabl e Encounter Details Date Type Department Care Team (Late st Contact Info) Description 04/29/2021 Transcribed Document [facility] Radiology [address] [place] [address] Janice Pan MD [address] [facility] [address] [place] [address] Social History Tobacco Use Types [...] FRANCESCA FUENTES PA-FAM CC: postop medical management HPI: 51 YO female with spinal stenosis who presented to [facility] for lumbar fusion by Dr. Clemons. Pt [...] ovale) Scoliosis Ulcerative colitis PSHx: Tubal ligation ([id number]). Cholecystectomy ([id number]). uterine ablation. neck surgery FHx: Mother - [...] injectable kit gabapentin 100 mg oral capsule [place] 10 mg-325 mg oral tablet 1 Tab, [...] 10:50) MAP 79 (APR 29:) 75 (APR 29 11:30) 99 (APR 29 10:50) SpO2 98 (APR [...]
--- OUTSIDE RECORDS SUMMARY | 2025-04-30 07:51 | XMS_ITS | Encounter Summary ---
Author Organization [employer] ([place], [place], [place], [place]) Address [address] [place] [address] Care Team Providers Care Software Engineer Kernel Name Role Phone Unavailable Primary Care Provider Unavailabl e Encounter Details Date Type Department Care Team (Late st Contact Info) Description 04/29/2021 Transcribed Document [facility] [place] [facility] [place] [address] ProviderLatisha MD [address] [place] [address] Social History Tobacco Use Types Packs/Day Years Used Date Smoking Tobacco: Never Assessed Comments Unknown Sex and Gender Information Value Date Recorded Sex Assigned at Not on file Legal Sex Female 5:30 PM CDT Gender Identity Not on file Sexual Orientation Not on file documented as of this encounter Miscellaneous Notes * Cerner Conversion Note - Historical ProviderMD - 04/29/2021 11:03 AM CDT Evaluation, Physical Therapy Entered On: 04/29/2021 16:22 EDT Performed On: 04/29/2021 14:23 EDT by JESS ARGUETA, PT General Information, PT Visit Type, PT [...] : Pain Rehabilitation Potential : Good JESS ARGUETA, PT - 04/29/2021 16:08 EDT Plan of Care, PT PT Tx Plan/Goals Established w Patient : Yes PT Frequency Rehab : Five days per week PT Duration Rehab : Fourteen days PT Treatments Planned : Balance training, Bed mobility training, Gait training, Safety education, Stair training, Therapeutic exercises, Transfer training JESS ARGUETA, PT - 04/29/2021 16:08 EDT Regional Sales Manager Goals Mobility/Bed Mobility LTG PT Grid Goal #1 Goal #2 Activity : Supine to sit Sit to stand Assist : Independent, complete Independent, modified Date to Meet : 05/13/2021 EDT 05/13/2021 EDT Goal Status : Intial Goal Intial Goal TWYLA ARGUETAITLYNN, PT - 04/29/2021 16:08 EDT SINGH ARGUETALYNN, PT - 04/29/2021 16:08 EDT Ambulation LTG Grid Goal #1 Device : Walker, front wheel Distance : 250' Assist : Independent, modified Date to Meet : 05/13/2021 EDT Goal Status : Intial Goal JESS ARGUETA, PT - 04/29/2021 16:08 EDT Treatment Note [...] PLOF. Plan for Treatment : Continue POC SINGH ARGUETALYNN, PT - 04/29/2021 16:08 EDT Pain Assessment [...] JESS ARGUETA, PT - 04/29/2021 16:08 EDT documented in this encounter Plan of Treatment Not on file documented as of this encounter Visit Diagnoses Not on filedocumented in this encounter
--- OUTSIDE RECORDS SUMMARY | 2025-04-30 07:51 | XMS_ITS | Encounter Summary ---
Author Organization [employer] ([place], [place], [place], [place]) Address [address] [place] [address] Care Team Providers Care Chief Maintenance Supervisor Name Role Phone Unavailable Primary Care Provider Unavailabl e Encounter Details Date Type Department Care Team (Late st Contact Info) Description 04/30/2021 Transcribed Document [facility] [place] [facility] [place] [address] ProviderLatisha MD [address] [place] [address] Social History Tobacco Use Types Packs/Day Years Used Date Smoking Tobacco: Never Assessed Comments Unknown Sex and Gender Information Value Date Recorded Sex Assigned at Not on file Legal Sex Female 5:30 PM CDT Gender Identity Not on file Sexual Orientation Not on file documented as of this encounter Miscellaneous Notes * Cerner Conversion Note - Latisha ProviderMD - 04/30/2021 8:27 AM CDT Pain Assessment [...]
--- OUTSIDE RECORDS SUMMARY | 2025-04-30 07:51 | XMS_ITS | Encounter Summary ---
Author Organization [employer] ([place], [place], [place], [place]) Address [address] [place] [address] Care Team Providers Care Escalator Constructor Name Role Phone Unavailable Primary Care Provider Unavailabl e Encounter Details Date Type Department Care Team (Late st Contact Info) Description 04/29/2021 Transcribed Document [facility] [place] [facility] [place] [address] ProviderLatisha MD [address] [id number] Social History Tobacco Use Types Packs/Day Years Used Date Smoking Tobacco: Never Assessed Comments Unknown Sex and Gender Information Value Date Recorded Sex Assigned at Not on file Legal Sex Female 5:30 PM CDT Gender Identity Not on file Sexual Orientation Not on file documented as of this encounter Miscellaneous Notes * Cerner Conversion Note - Historical ProviderMD - 04/29/2021 2:00 AM CDT Spiritual Care Assessment Entered On: 04/29/2021 7:37 EDT Performed On: 04/29/2021 7:18 EDT by CEDRIC JENNINGS General Information Initial Visit : Yes Referred by : Patient Referral Reason Comment : Pre-surgery visit Ministry Provided to : Patient, Family/Significant other Tenriism Preference : Zoroastrian CEDRIC JENNINGS P - 04/29/2021 7:36 EDT Spiritual Assessment Spiritual Assessment Comment/Summary Points : Provided pre-surgery visit and prayer with patient and . Spirital Assessment Comment/Summary Report : SPIRITUAL ASSESSMENT COMMENT/SUMMARY No qualifying data available. CEDRIC JENNINGS - 04/29/2021 7:36 EDT Interventions Emotional Support : Empathic/Engaged listening, Family/Significant other supported Spiritual and Tenriism : Prayer shared, Spiritual/Tenriism support provided CEDRIC JENNINGS - 04/29/2021 7:36 EDT Electronically signed by [facility] Conversion Sign Shop Supervisor Cerner at 01/04/2023 12:56 PM CDT documented in this encounter Plan of Treatment Not on file documented as of this encounter Visit Diagnoses Not on filedocumented in this encounter
--- OUTSIDE RECORDS SUMMARY | 2025-04-30 07:51 | XMS_ITS | Encounter Summary ---
Author Organization [employer] ([place], [place], [place], [place]) Address [address] [place] [address] Care Team Providers Care Fishing Gear Mechanic Name Role Phone Unavailable Primary Care Provider Unavailabl e Encounter Details Date Type Department Care Team (Late st Contact Info) Description 04/29/2021 Transcribed Document [facility] [place] [facility] [place] [address] ProviderLatisha MD [address] [place] [address] Social History Tobacco Use Types [...] : Supervision or set-up KIM STEPHENS OTR/Michelle Corbin 04/29/2021 15:44 EDT Functional Mobility Mobility Grid [...] Rehabilitation Potential, OT : Good KIM STEPHENS OTR/L - 04/29/2021 15:44 EDT Plan of Care, OT OT Tx Plan/Goals Established w Patient : Yes OT Frequency Rehab : Five days per week OT Duration Rehab : Fourteen days OT Treatments Planned : Activities of daily living, Functional mobility training, Therapeutic activities KIM STEPHENS OTR/L - 04/29/2021 15:44 EDT Fdc Goals, OT Grooming LTG Grid Goal #1 Activity : Grooming Assist : Independent, modified Date to Meet : 05/13/2021 EDT Goal Status : Initial goal KIM STEPHENS OTR/L - 04/29/2021 15:44 EDT Bathing LTG Grid Goal #1 Activity : Bathing Assist : Independent, modified Date to Meet : 05/13/2021 EDT Goal Status : Initial goal KIM STEPHENS OTR/L - 04/29/2021 15:44 EDT Dressing, Lower Body LTG Grid Goal #1 Activity : Dressing, Lower Body Assist : Independent, modified Date to Meet : 05/13/2021 EDT Goal Status : Initial goal KIM STEPHENS OTR/L - 04/29/2021 15:44 EDT Toileting LTG Grid [...] for Treatment : See goals KIM STEPHENS OTR/L - 04/29/2021 15:44 EDT Pain Assessment Pain Score Pre-Intervention : 8 KIM STEPHENS OTR/L - 04/29/2021 15:44 EDT Image 1 - Images currently included in the form version of this document have not been included in the text rendition version of the form. [facility] OT Charges OT Eval Low Complexity : 1 KIM STEPHENS OTR/Michelle - 04/29/2021 15:44 EDT Electronically signed by Brendon Givens Conversion Television Receiver Analyzer Cerner at 01/04/2023 1:10 PM CDT documented in this encounter Plan of Treatment Not on file documented as of this encounter Visit Diagnoses Not on filedocumented in this encounter
--- OUTSIDE RECORDS SUMMARY | 2025-04-30 07:51 | XMS_ITS | Encounter Summary ---
Author Organization [facility] Address [address] [place] [address] Care Team Providers Care Dairy Equipment Installer Name Role Phone Mehdi Gross MD Primary Care Provider + Reason for Visit * Reason Onset Date Comments Med Refill 02/15/2025 Encounter Details Date Type Department Care Team ([facility] Contact Info) Description 02/15/2025 Refill [facility] FAMILY MEDICINE [address] [place] [address] Mehdi Gross MD [address] [place] [address] Degenerative disc disease, lumbar; Other osteoarthritis of spine, cervical region Social [...] Upcoming Encounters Date Type Department Care Team ([facility] Contact Info) Description 06/18/2025 8:00 AM EDT Office Visit [facility] [address] [facility] [place] [address] Mehdi Gross MD [address] [place] [address] documented as of this encounter Visit Diagnoses Diagnosis Degenerative disc disease, lumbar Other osteoarthritis of spine, cervical region documented in this encounter Additional Health Concerns Assessment Noted Time PHQ-2 Depression Total Score: 1 12/05/19 24 8:18 AM EDT documented as of this encounter Care Teams Dairy Equipment Installer Relationship Specialty Start Date End Date Mehdi Gross MD PCP - General Family Medicine 04/21/17 documented as of this encounter
--- OUTSIDE RECORDS SUMMARY | 2025-04-30 07:51 | XMS_ITS | Encounter Summary ---
Author Organization [employer] ([place], [place], [place], [place]) Address [address] [place] [address] Care Team Providers Care Services Program Manager Name Role Phone Unavailable Primary Care Provider Unavailabl e Encounter Details Date Type Department Care Team (Late st Contact Info) Description 04/30/2021 Transcribed Document [facility] [place] [facility] [place] [address] ProviderLatisha MD [address] [place] [address] Social History Tobacco Use [...] Policy Numbers : Insurance 1 Health [facility] Policy Number: [id number] Authorization Number: AUTH OBT [id number] Insurance Primary Name : Veronica [id number] Authorization Status-Primary : Opo status approv Authorized Service Begin Date-Primary : 04/29/2021 EDT Observation Authorization Nbr-Primary : [id number] Historical Authorization Comments-Primary : Comment 1: Pt is geoffrey for OUT PT MIS Posterior Fusion CT Guided on 04/29/21 [place] OP auth# [id number] per LEIDA (MARY GARBER, Solution Make Up Operator 04/27/2021 15:29) Mercedes Mitchell Rn-Utilization Review - 04/30/2021 10:52 EDT Electronically signed by Chon [facility] Conversion Parole Or Probation Officer Cerner at 01/04/2023 1:04 PM CDT documented in this encounter Plan of Treatment Not on file documented as of this encounter Visit Diagnoses Not on filedocumented in this encounter
--- OUTSIDE RECORDS SUMMARY | 2025-04-30 07:51 | XMS_ITS | Encounter Summary ---
Author Organization [employer] ([place], [place], [place], [place]) Address [address] [place] [address] Care Team Providers Care Machine Riveter Name Role Phone Unavailable Primary Care Provider Unavailabl e Encounter Details Date Type Department Care Team (Late st Contact Info) Description 05/01/2021 Transcribed Document [facility] [place] [facility] [place] [address] ProviderLatisha MD [address] [place] [address] Social History Tobacco Use Types Packs/Day Years Used Date Smoking Tobacco: Never Assessed Comments Unknown Sex and Gender Information Value Date Recorded Sex Assigned at Not on file Legal Sex Female 5:30 PM CDT Gender Identity Not on file Sexual Orientation Not on file documented as of this encounter Miscellaneous Notes * Cerner Conversion Note - Historical ProviderMD - 05/01/2021 4:53 PM CDT Discharge [...] SHELIA KEVIN, PT - 05/01/2021 16:53 EDT [facility] Goals Mobility/Bed Mobility LTG PT Grid Goal [...]
--- OUTSIDE RECORDS SUMMARY | 2025-04-30 07:51 | XMS_ITS | Clinical Summary ---
Author Organization [facility] Address [address] [place] [address] Care Team Providers Care Flute Polisher Name Role Phone Mehdi Gross MD Primary Care Provider + Allergies Active Allergy Reactions Criticality Noted Date Comments Bee Venom Anaphylaxis High 05/03/2021 Metronidazole Swelling 02/17/2022 Morphine Nausea And Vomiting 02/17/2022 Nsaids Anaphylaxis High 02/17/2022 Peanut (Diagnostic) Unknown - Low Severity 04/19 Oxycodone-Acetaminophen Nausea And Vomiting 09/2021 Shellfish Allergy Unknown - Low Severity 2020 [place] Unknown - Low Severity 05/03/2021 Gatifloxacin Headache 02/17/2022 Medications Lactobacillus (PROBIOTIC ACIDOPHILUS PO) Take by mouth. Active Docusate Sodium (COLACE PO) Take by mouth. Act art clopidogrel (PLAVIX) 75 MG tablet Take 1 tablet by mouth Daily. 90 tablet 3 07/20/20 24 Active dicyclomine (BENTYL) 20 MG tablet Take 1 tablet by mouth 4 (Four) Times a Day As Needed (intestinal cramping). 360 tablet 3 07/20/20 24 Active Additional Information Patient not taking.Reported on 12/20/2024 omeprazole (priLOSEC) 20 MG capsuleIndications :Gastroesophageal reflux disease without esophagitis Take 1 capsule by mouth 2 (Two) Times a Day. 180 capsule 3 07/20/20 24 Active albuterol sulfate HFA 108 (90 Base) MCG/ACT inhaler Inhale 2 puffs Every 4 (Four) Hours As Needed for Wheezing. 18 g 5 10/19/19 25 Active Triamcinolone Acetonide (NASACORT) 55 MCG/ACT nasal inhalerIndications :Non-seasonal allergic rhinitis due to pollen Administer 2 sprays into the nostril(s) as directed by provider Daily. 16.5 g 11 11/23/19 25 Active Entyvio Pen 108 MG/0.68ML solution auto-injector 12/05/19 25 Active loratadine (Claritin) 10 MG tablet Take 1 tablet by mouth Daily. Active bisoprolol (ZEBeta) 5 MG tabletIndications: Coronary artery disease involving [facility] coronary artery of [facility] heart without angina pectoris Take 0.5 tablets by mouth Daily. 90 tablet 3 12/21/19 25 Active methocarbamol (ROBAXIN) 500 MG tabletIndications: Degenerative disc disease, lumbar Take 1 tablet by mouth 3 (Three) Times a Day As Needed for Muscle Spasms. 90 tablet 04/29/20 25 Active gabapentin (NEURONTIN) 100 MG capsuleIndications :Degenerative disc disease, lumbar Take 1 capsule by mouth 2 (Two) Times a Day. 60 capsule 04/29/20 25 Active ALPRAZolam (XANAX) 0.25 MG tabletIndications: Anxiety Take 1 tablet by mouth every 6 (six) to 8 (eight) hours as needed for Anxiety. 120 tablet 04/29/20 25 Active HYDROcodone-acetam inophen (NORCO) 10-325 MG per tabletIndications: Degenerative disc disease, lumbar,Other osteoarthritis of spine, cervical region Take 1 tablet by mouth every 6 (six) to 8 (eight) hours as needed for Severe Pain. 100 tablet 04/29/20 25 Active methocarbamol (ROBAXIN) 500 MG tabletIndications: Degenerative disc disease, lumbar Take 1 tablet by mouth 3 (Three) Times a Day As Needed for Muscle Spasms. 90 tablet 5 01/25/20 25 025 Discontin ued(Reord er) gabapentin (NEURONTIN) 100 MG capsuleIndications :Degenerative disc disease, lumbar Take 1 capsule by mouth 2 (Two) Times a Day. 60 capsule 5 01/25/20 25 025 Discontin ued(Reord er) ALPRAZolam (XANAX) 0.25 MG tabletIndications: Anxiety Take 1 tablet by mouth every 6 (six) to 8 (eight) hours as needed for Anxiety. 120 tablet 5 01/25/20 25 025 Discontin ued(Reord er) HYDROcodone-acetam inophen (NORCO) 10-325 MG per tabletIndications: Degenerative disc disease, lumbar,Other osteoarthritis of spine, cervical region Take 1 tablet by mouth every 6 (six) to 8 (eight) hours as needed for Severe Pain. 100 tablet 03/19/20 25 025 Discontin ued(Reord er) Encounters Date Type Department Care Team Description 04/29/2025 Refill [facility] [address] [facility] [place] [address] Mehdi Gross MD Degenerative disc disease, lumbar; Degenerative disc disease, lumbar; Anxiety; Other osteoarthritis of spine, cervical region 03/19/2025 Refill [facility] [address] [facility] [place] [address] Mehdi Gross MD Degenerative disc disease, lumbar; Degenerative disc disease, lumbar; Anxiety; Other osteoarthritis of spine, cervical region 02/18/2025 Refill [facility] [address] [facility] [place] [address] Mehdi Gross MD Degenerative disc disease, lumbar; Other osteoarthritis of spine, cervical region 02/15/2025 Refill [facility] [address] [facility] [place] [address] Mehdi Gross MD Degenerative disc disease, lumbar; Other osteoarthritis of spine, cervical region from Last 3 Months Immunizations Immunization Administration Dates Next Due COVID-19 (EDGARD) 12/20/2020 Tdap 08/06/2015 Family History Medical History Relation Name Comments Alcohol abuse Brother Chris Alcohol abuse Father Brown defects Father Brown Tetrology of F allow COPD Father Brown Early Father Brown 49 Heart disease Father Brown Hyperlipidemia Father Brown Breast cancer Maternal Aunt 1 Cancer Maternal Aunt 2 Celia Breast Breast cancer Maternal Cousin Stella Breast cancer Maternal Grandmother unsure of age- older Cancer Maternal Uncle Marlon Pancreatic Pancreatic cancer Maternal Uncle Marlon Alcohol abuse Mother Leydi Anxiety disorder Mother Leydi COPD Mother Leydi Cancer Mother Leydi Pancreatic Early Mother Leydi 53 Hyperlipidemia Mother Leydi Pancreatic cancer Mother Leydi Stroke Mother Leydi Breast cancer Paternal Aunt 1 Ara 50's Cancer Paternal Aunt 1 Ara Breast Breast cancer Paternal Aunt 2 Belem Grant 50's Diabetes Paternal Uncle Rony Arthritis Sister 1 Marcela RA Thyroid disease Sister 2 Hallie Hoshimato's Endometrial cancer Neg Hx Ovarian cancer Neg Hx Relation Name Status Comments Brother Chris Father Brown Maternal Aunt 1 Maternal Aunt 2 Celia Maternal Cousin Stella Maternal Grandmother Maternal Uncle Marlon Mother Leydi Paternal Aunt 1 Ara Paternal Aunt 2 Belem Grant Paternal Uncle Rony Sister 1 Marcela Sister 2 Hallie Social History Tobacco Use Types Packs/Day Years Used Date Smoking Tobacco: Former Cigarettes 0.5 19 1 986 - 2005 Smokeless Tobacco: Never Tobacco Cessation:Counseling Given: Not Answered Alcohol Use Standard Drinks/Week Comments Not Currently [...] Orientation Straight 12/13/2024 3: 16 PM EDT Last Filed Vital Signs Vital Sign Reading Time Taken Comments Blood Pressure 120/75 12/20/2024 9:00 AM EDT Pulse 82 12/20/2024 9:00 AM EDT Temperature 36.6 C (97.8 F) 12/20/2024 9:00 AM EDT Respiratory Rate 20 12/20/2024 9:00 AM EDT Oxygen Saturation 98% 12/20/2024 9:00 AM EDT Inhaled Oxygen Concentration - - Weight 77.7 kg (171 lb 6.4 oz) 12/20/2024 9:00 A M EDT Height 167.6 cm (5' 6 ) 12/20/2024 9:00 AM EDT Body Mass Index 27.66 12/20/2024 9:00 AM EDT Plan of Treatment Upcoming Encounters Date Type Department Care Team (Late st Contact Info) Description 06/18/2025 8:00 AM EDT Office Visit [facility] [address] [address] Mehdi Gross MD [address] [address] Health Maintenance Due Date Last Done Comments Annual Gynecologic Pelvic an d Breast Exam 1972 PAP SMEAR 1993 COLOGUARD 2017 COLON CANCER SCREENING 5 YEA R SIGMOIDOSCOPY 2017 CT COLONOGRAPHY 2017 FECAL OCCULT BLOOD TEST 2017 FIT Testing (1 year) 2017 HEPATITIS C SCREENING 07/27/2021 Pneumococcal Vaccine 50+ (1 of 1 - PCV) 2022 ZOSTER VACCINE (1 of 2) 2022 COVID-19 Vaccine (2 - 2023-2 5 season) 2024 12/20/2020 INFLUENZA VACCINE 06/19/2025 TDAP/TD VACCINES (2 - Td or Tdap) 08/06/2025 015 ANNUAL PHYSICAL 12/20/2025 12/20/2024 MAMMOGRAM 07/17/2026 07/17/2024, 06/19, 06/17/2022, Additional history exists COLONOSCOPY 02/09/2032 02/08/2022 COLORECTAL CANCER SCREENING 02/09/2032 Procedures Procedure Name Priority Date/Time Associated Diagnosis Comments SCANNED NUCLEAR MED 03/28/2025 SCANNED - LABS 03/11/2025 SCANNED - LABS 03/11/2025 MAMMO SCREENING DIGITAL TOMOSYNTHESIS BILATERAL W CAD Routine 07/17/2024 10:52 AM EDT Screening mammogram for breast cancer from Last 3 Months or Most Recently Relevant to Health Maintenance Results * NUCLEAR MED SCANNED (03/28/2025) Anatomical Region Laterality Modality Nuclear Medicine us Mehdi Gross MD IMG NM ORDERABLES Final Result * LABS SCANNED (03/11/2025) Only the most recent of2 resultswithin the time period is included. Mehdi Gross MD LAB BLOOD ORDERABLES Fin al Result * Mammo Screening Digital Tomosynthesis Bilateral With CAD (07/17/2024 10:52 AM EDT) Anatomical Region Laterality Modality Breast N/A Mammography 07/19/2024 9:38 AM EDT Impressions 07/19/2024 9:40 AM EDT Negative bilateral mammogram. RECOMMENDATION: Continue annual screening mammography. BI-RADS CATEGORY 1, NEGATIVE. CAD was utilized. The standard false-negative rate of mammography is between 10% and 25%. Complex patterns or increased breast density will markedly elevate the false-negative rate of mammography. A letter, in lay terminology, with the results of this exam will be mailed to the patient. This report was finalized on 07/19/2024 9:[address] Rony Peace MD. Narrative 07/19/2024 9:40 AM EDT DIGITAL SCREENING MAMMOGRAM WITH TOMOSYNTHESIS HISTORY: Screening Mammography. Low dose full field digital breast tomosynthesis imaging was performed with 2D and 3D acquisitions consisting of bilateral CC and MLO views. Examination is compared to prior examination dating back to 01/28/2015. Examination is read in conjunction with computer aided detection. FINDINGS: The breast tissue is heterogeneously dense, which may obscure small masses. No suspicious masses, microcalcifications or areas of architectural distortion are present. Mehdi Gross MD [facility] MAMMOGRAPHY ORDERABL ES Final Result from Last 3 Months or Most Recently Relevant to Health Maintenance Insurance [facility] PPO Member Subscriber Plan / Payer (Ef fective 2018-Present) Name:Ester Bernardo Relation to Subscriber:Self Name:Ester Bernardo Payer ID:[id number] (NAIC) Type:Not on file Address: [address] [place] [id number] Care Teams Flute Polisher Relationship Specialty Start Date End Date Mehdi Gross MD PCP - General Family Medicine 04/21/17
--- OUTSIDE RECORDS SUMMARY | 2025-04-30 07:51 | XMS_ITS | Encounter Summary ---
Author Organization [employer] ([place], [place], [place], [place]) Address [address] [place] [address] Care Team Providers Care Hip Hop Dancer Name Role Phone Unavailable Primary Care Provider Unavailabl e Encounter Details Date Type Department Care Team (Late st Contact Info) Description 04/29/2021 Transcribed Document [facility] [place] [facility] [place] [address] ProviderLatisha MD [address] [place] [address] Social History Tobacco Use Types [...]
--- OUTSIDE RECORDS SUMMARY | 2025-04-30 07:51 | XMS_ITS | Encounter Summary ---
Author Organization [employer] ([place], [place], [place], [place]) Address [address] [place] [address] Care Team Providers Care Threshing Machine Operator Name Role Phone Unavailable Primary Care Provider Unavailabl e Encounter Details Date Type Department Care Team (Late st Contact Info) Description 05/01/2021 Transcribed Document [facility] [place] [facility] [place] [address] ProviderLatisha MD [address] [place] [address] Social History Tobacco Use Types Packs/Day Years Used Date Smoking Tobacco: Never Assessed Comments Unknown Sex and Gender Information Value Date Recorded Sex Assigned at Not on file Legal Sex Female 5:30 PM CDT Gender Identity Not on file Sexual Orientation Not on file documented as of this encounter Miscellaneous Notes * Cerner Conversion Note - Latisha ProviderMD - 05/01/2021 2:05 PM CDT [facility] [address] [place], [place] [id number] ESTER GALVAN SHADY :1970 Visit Time:04/29/2021 Your Visit Summary Your Care Team Admitting Physician - JAMI ISLAS MD-SNU Attending Physician - JAMI ISLAS MD-SNU Primary Care Physician - ASAEL GOTTLIEB MD-[facility] Referring Physician - Clifford, UNKNOWN Your Diagnosis Lumbar radiculopathy, Radiculopathy, lumbar region, Radiculopathy, lumbar region These Are Your Goals Patient Discharge Goal Patient Discharge Goal: Home health care Discharge Vitals Temperature 36.6 ??C Heart Rate (Monitored) 104 Respiratory Rate 12 Blood Pressure 110/60 What to do next Instructions From Your Care Team complete instructions per [facility] neurosurgery discharge information sheet, included Diet [...] change as needed, _ Home Health Services: [facility]--[phone] Home Equipment: [employer]--[phone] Discharge Activity: Discharge Activity: No heavy lifting over 10 lbs Diet: Discharge Diet: Resume usual diet as tolerated Wound/Incision Care Instructions: Keep operative site/wound clean and dry Showering/Bathing Instructions: May shower Follow-Up Appointments Follow Up with JAMI ISLAS When 06/01/2021 01:45 PM EDT Comments see card, xrays at 1:45, appt in office at 2:15 Where: [address] [place] [phone]- Follow Up with JAMI ISLAS When 05/14/2021 03:00 PM EDT Comments Appointment has been made for wound check Where: [address] [place] [address]- Business (1) Medications What How Much When Instructions Next Dose albuterol (albuterol CFC free 90 mcg/ inh inhalation aerosol with adapter) 18 Gram EPINEPHrine (EPINEPHrine 0.3 mg injectable kit) 2 Each gabapentin (gabapentin 100 mg oral capsule) 60 Cap tonight ondansetron (Zofran ODT 4 mg oral tablet, disintegrating) 1 Tablet(s) Oral Three Times A Day as needed for Nausea Pickup at [facility] as needed acetaminophen-hydrocodone (acetaminophen-HYDROcodone 325 mg-10 mg oral tablet) 120 Tab acetaminophen-hydrocodone (Eggl[place] 10 mg-325 mg oral tablet) 1 Tablet(s) Oral Every 6 Hours as needed for as needed for pain 4:45 acetaminophen-hydrocodone (E[place] 7.5 mg-325 mg oral tablet) 1 Tablet(s) [...] Two Times A Day tomorrow Pharmacy Information [facility]: [address] [place] [address] [place] [id number] [phone] Take your medications faithfully. Do NOT skip [...] these instructions at home: Medicines ??? Take xeqy-psb-zssyacg and prescription medicines only as told by [...] keep your urine pale yellow. ? Take cofs-xtq-fjzemsx or prescription medicines. ? Eat foods that [...] and water are not available, use hand test data developer. ? Change your dressing as told by [...] provider. Document Revised: 03/31/2020 Document Reviewed: 03/31/2020 [employer] Patient Education ?? 2020 [employer]. Laminectomy Laminectomy is a surgery to remove: [...] including vitamins, herbs, eye drops, creams, and vfyw-yge-upvrlik medicines. ??? Any problems you or family [...] tells you to take them. ? Taking qidy-aud-ipbpbrf medicines, vitamins, herbs, and supplements. Tests ??? [...] provider. Document Revised: 03/31/2020 Document Reviewed: 03/31/2020 [employer] Patient Education ?? 2020 [employer] acetaminophen and hydrocodone (a SEET a MIN oh fen and pérez droe KOE done) Hycet, Lorcet, Eggleston, Verdrocet, Vicodin, Xodol, Zamicet What is the [...] may report side effects to FDA at 4-316-EHL-5726. What other drugs will affect acetaminophen and [...] affect acetaminophen and hydrocodone, including prescription and qngk-zdx-qgdpobi medicines, vitamins, and herbal products. Not all [...] to ensure that the information provided by [employer]. ('[employer]') is accurate, up-to-date, and complete, but no guarantee is made to that effect. Drug information contained herein may be time sensitive. [employer] information has been compiled for use by healthcare practitioners and consumers in the [place] and therefore [employer] does not warrant that uses outside of the [place] are appropriate, unless specifically indicated otherwise. [employer] drug information does not endorse drugs, diagnose patients or recommend therapy. [employer] drug information is an informational resource designed [...] effective or appropriate for any given patient. [employer] does not assume any responsibility for any aspect of healthcare administered with the aid of information [employer] provides. The information contained herein is not intended to cover all possible uses, directions, precautions, warnings, drug interactions, allergic reactions, or adverse effects. If you have questions about the drugs you are taking, check with your doctor, nurse or pharmacist. Copyright 8208-0673 [employer]. Version: 16.03. Revision Date: 10/21/2020. Emergency Awareness [...] Assistance with quitting is available by contacting 4-098-XLIINOW. This is a free resource providing counseling, [...] ) Urine Bilirubin Dipstick: Negative Urine Specific [place]: 1.023 -- Normal range between ( 1.005 [...] CR CT in OR Patient Name:ESTER GALVAN SHADY I have received and understand this information and was given the opportunity to ask questions. Patient/Stamp Redemption Clerk Name: Patient/Stamp Redemption Clerk Signature: Relationship to Patient: Clinician/Hospital Stamp Redemption Clerk Signature: Date: Electronically signed by Chon [facility] Conversion Die Cast Patternmaker Gaetano at 01/04/2023 1:04 PM CDT documented in this encounter Plan of Treatment Not on file documented as of this encounter Visit Diagnoses Not on filedocumented in this encounter
--- OUTSIDE RECORDS SUMMARY | 2025-04-30 07:51 | XMS_ITS | Encounter Summary ---
Author Organization [employer] ([place], [place], [place], [place]) Address [address] [place] [address] Care Team Providers Care Breaker Off Name Role Phone Unavailable Primary Care Provider Unavailabl e Encounter Details Date Type Department Care Team (Late st Contact Info) Description 04/30/2021 Transcribed Document [facility] [place] Medicine [facility] [place] [address] ProviderLatisha MD [address] [place] [address] Social History Tobacco Use Types [...] these instructions at home: Medicines ??? Take qgqa-bby-etzyzyd and prescription medicines only as told by [...] keep your urine pale yellow. ? Take nzrp-csi-schgjmz or prescription medicines. ? Eat foods that [...] and water are not available, use hand dance choreographer. ? Change your dressing as told by [...] provider. Document Revised: 03/31/2020 Document Reviewed: 03/31/2020 [employer] Patient Education ? 2020 [employer]. Laminectomy Laminectomy is a surgery to remove: [...] including vitamins, herbs, eye drops, creams, and vxep-ukx-tpkzdww medicines. ??? Any problems you or family [...] tells you to take them. ? Taking ezht-clx-fkdgnyb medicines, vitamins, herbs, and supplements. Tests ??? [...] provider. Document Revised: 03/31/2020 Document Reviewed: 03/31/2020 [employer] Patient Education ? 2020 [employer] Electronically signed by Brendon Givens Conversion Endoscopy Support Specialist Cerner at 01/04/2023 12:55 PM CDT documented in this encounter Plan of Treatment Not on file documented as of this encounter Visit Diagnoses Not on filedocumented in this encounter
--- OUTSIDE RECORDS SUMMARY | 2025-04-30 07:51 | XMS_ITS | Encounter Summary ---
Author Organization [employer] ([place], [place], [place], [place]) Address [address] [place] [address] Care Team Providers Care Fast Food Assistant Restaurant Manager Name Role Phone Unavailable Primary Care Provider Unavailabl e Encounter Details Date Type Department Care Team (Late st Contact Info) Description 04/30/2021 Transcribed Document [facility] [place] [facility] [place] [address] ProviderLatisha MD [address] [place] [address] Social History Tobacco Use Types Packs/Day Years Used Date Smoking Tobacco: Never Assessed Comments Unknown Sex and Gender Information Value Date Recorded Sex Assigned at Not on file Legal Sex Female 5:30 PM CDT Gender Identity Not on file Sexual Orientation Not on file documented as of this encounter Miscellaneous Notes * Cerner Conversion Note - Historical ProviderMD - 04/30/2021 7:00 AM CDT Pain [...] version of the form. Electronically signed by Interface, Brendon Conversion Assistant Press Operator Offset Cerner at 01/04/2023 1:05 PM CDT documented in this encounter Plan of Treatment Not on file documented as of this encounter Visit Diagnoses Not on filedocumented in this encounter
--- OUTSIDE RECORDS SUMMARY | 2025-04-30 07:51 | XMS_ITS | Encounter Summary ---
Author Organization [employer] ([place], [place], [place], [place]) Address [address] [place] [address] Care Team Providers Care Unit Secy Name Role Phone Unavailable Primary Care Provider Unavailabl e Encounter Details Date Type Department Care Team (Late st Contact Info) Description 04/29/2021 Transcribed Document [facility] [place] [facility] [place] [address] ProviderLatisha MD [address], [place] [id number] Social History Tobacco Use Types Packs/Day Years Used Date Smoking Tobacco: Never Assessed Comments Unknown Sex and Gender Information Value Date Recorded Sex Assigned at Not on file Legal Sex Female 5:30 PM CDT Gender Identity Not on file Sexual Orientation Not on file documented as of this encounter Miscellaneous Notes * Cerner Conversion Note - Historical ProviderMD - 04/29/2021 12:17 PM CDT Meds to [...]
--- OUTSIDE RECORDS SUMMARY | 2025-04-30 07:51 | XMS_ITS | Encounter Summary ---
Author Organization [employer] ([place], [place], [place], [place]) Address [address] [place] [address] Care Team Providers Care Technical Sales Manager Name Role Phone Unavailable Primary Care Provider Unavailabl e Encounter Details Date Type Department Care Team (Late st Contact Info) Description 05/01/2021 Transcribed Document [facility] Family Medicine [facility] [place] [address] ProviderLatisha MD [address] [place] [address] Social History Tobacco Use Types Packs/Day Years Used Date Smoking Tobacco: Never Assessed Comments Unknown Sex and Gender Information Value Date Recorded Sex Assigned at Not on file Legal Sex Female 5:30 PM CDT Gender Identity Not on file Sexual Orientation Not on file documented as of this encounter Miscellaneous Notes * Cerner Conversion Note - Historical ProviderMD - 05/01/2021 2:20 PM CDT Nursing [...] MICHAEL BENNETT RN - 05/01/2021 14:20 EDT documented in this encounter Plan of Treatment Not on file documented as of this encounter Visit Diagnoses Not on filedocumented in this encounter
--- OUTSIDE RECORDS SUMMARY | 2025-04-30 07:52 | XMS_ITS | Encounter Summary ---
Author Organization [facility] Address [address] [place] [id number] Care Team Providers Care Sheet Writer Name Role Phone Mehdi Gross MD Primary Care Provider + Reason for Visit * Reason Comments Med Refill Encounter Details Date Type Department Care Team (Late st Contact Info) Description 11/21/[address] [facility] FAMILY MEDICINE [address] [place] [address] Mehdi Gross MD [address] [place] [address] Degenerative disc disease, lumbar; Degenerative disc disease, lumbar; Other osteoarthritis of spine, cervical region Social History Tobacco Use Types Packs/Day Years Used Date Smoking Tobacco: Former Cigarettes Q uit: 09/19/2004 Smokeless Tobacco: Never Alcohol Use Standard Drinks/Week Comments Not Currently 0 (1 standard drink = 0.6 oz pur e alcohol) PHQ-2 Answer Date Recorded Retired PHQ-9: Brief Depression Severity Measure Score 1 04/18/2023 PHQ-2 Answer Date Recorded Retired PHQ-9: Brief Depression Severity Measure Score 1 04/18/2023 Comments No Sex and Gender Information Value Date Recorded Sex Assigned at Female 12/13/2024 3:16 PM EDT Legal Sex Female 1:52 PM EDT Gender Identity Not on file Sexual Orientation Straight 12/13/2024 3: 16 PM EDT documented as of this encounter Plan of Treatment Upcoming Encounters Date Type Department Care Team (Late st Contact Info) Description 06/18/2025 8:00 AM EDT Office Visit [facility] [address] [place] [phone] Mehdi Gross MD [address] [place] [address] documented as of this encounter Visit Diagnoses Diagnosis Degenerative disc disease, lumbar Other osteoarthritis of spine, cervical region documented in this encounter Additional Health Concerns Assessment Noted Time PHQ-2 Depression Total Score: 1 04/18/20 23 8:15 AM EDT documented as of this encounter Care Teams Sheet Writer Relationship Specialty Start Date End Date Mehdi Gross MD PCP - General Family Medicine 04/21/17 documented as of this encounter
--- OUTSIDE RECORDS SUMMARY | 2025-04-30 07:52 | XMS_ITS | Encounter Summary ---
Author Organization [employer] ([place], [place], [place], [place]) Address [address] [place] [address] Care Team Providers Care Vp Human Resources Name Role Phone Unavailable Primary Care Provider Unavailabl e Encounter Details Date Type Department Care Team (Late st Contact Info) Description 05/01/2021 Transcribed Document [facility] [address] [employer] [address] [place] [address] Maldonado Clemons MD [address] [place] [address] Social History Tobacco Use Types Packs/Day Years Used Date Smoking Tobacco: Never Assessed Comments Unknown Sex and Gender Information Value Date Recorded Sex Assigned at Not on file Legal Sex Female 5:30 PM CDT Gender Identity Not on file Sexual Orientation Not on file documented as of this encounter Miscellaneous Notes * Cerner Conversion Note - Maldonado Clemons MD - 05/01/2021 11:36 AM EDT Patient: ESTER BERNARDO Age: 51 Years Sex: Female : 1970 Assessment/Plan POD 2 L5-S1 MIS TLIF postop pain is much better good mobility dc home, discussed post op expectations VTE Prophylaxis - Medical Sequential Compression Device Start: 04/29/21 11:03:00 EDT, Bilateral, Continuous Order (MALDONADO CLEMONS) Subjective pain feels much better wants [...]
--- OUTSIDE RECORDS SUMMARY | 2025-04-30 07:52 | XMS_ITS | Encounter Summary ---
Author Organization [facility] Address [address] [place] [address] Care Team Providers Care Fur Glosser Name Role Phone Mehdi Gross MD Primary Care Provider + Reason for Visit * Reason Onset Date Comments Med Refill 04/29/2025 Encounter Details Date Type Department Care Team (Late st Contact Info) Description 04/29/2025 Refill [facility] [address] [place] [address] Mehdi Gross MD [address] [place] [address] Degenerative disc disease, lumbar; Degenerative [...] Description 06/18/2025 8:00 AM EDT Office Visit [facility] [address] [facility] [place] [address] Mehdi Gross MD [address] [place] [address] documented as of this encounter Visit Diagnoses Diagnosis Degenerative disc disease, lumbar Anxiety Anxiety state, unspecified Other osteoarthritis of spine, cervical region documented in this encounter Additional Health Concerns Assessment Noted Time PHQ-2 Depression Total Score: 1 12/05/19 24 8:18 AM EDT documented as of this encounter Care Teams Fur Glosser Relationship Specialty Start Date End Date Mehdi Gross MD PCP - General Family Medicine 04/21/17 documented as of this encounter
--- OUTSIDE RECORDS SUMMARY | 2025-04-30 07:52 | XMS_ITS | Referral Summary ---
Author Organization [employer] ([place], [place], [place], [place]) Address [address] [place] [address] Care Team Providers Care Braiding Machine Operator Name Role Phone Unavailable Primary [...]
--- OUTSIDE RECORDS SUMMARY | 2025-04-30 07:52 | XMS_ITS | Clinical Summary ---
Author Organization [employer] ([place], [place], [place], [place]) Address [address] [place] [address] Care Team Providers Care Awning Hanger Name Role Phone Unavailable Primary Care Provider [...]
--- OUTSIDE RECORDS SUMMARY | 2025-04-30 07:52 | XMS_ITS | Encounter Summary ---
Author Organization [employer] ([place], [place], [place], [place]) Address [address] [place] [address] Care Team Providers Care Environmental Remediation Engineer Name Role Phone Unavailable Primary Care Provider Unavailabl e Encounter Details Date Type Department Care Team (Late st Contact Info) Description 05/01/2021 Transcribed Document [facility] [place] [place] Family [facility] [place] [address] ProviderLatisha MD [address] [place] [address] Social History Tobacco Use Types [...] EDT Performed On: 05/01/2021 10:16 EDT by SHELIA KEVIN PT Attempt to Treat Unable to [...]
--- OUTSIDE RECORDS SUMMARY | 2025-04-30 07:52 | XMS_ITS | Encounter Summary ---
Author Organization [employer] ([place], [place], [place], [place]) Address [address] [place] [address] Care Team Providers Care Rug Inspector Helper Name Role Phone Unavailable Primary Care Provider Unavailabl e Encounter Details Date Type Department Care Team (Late st Contact Info) Description 05/01/2021 Transcribed Document [facility] Family Medicine [facility] [place] [address] ProviderLatisha MD [address] [place] [address] Social History Tobacco Use Types Packs/Day Years Used Date Smoking Tobacco: Never Assessed Comments Unknown Sex and Gender Information Value Date Recorded Sex Assigned at Not on file Legal Sex Female 5:30 PM CDT Gender Identity Not on file Sexual Orientation Not on file documented as of this encounter Miscellaneous Notes * Cerner Conversion Note - Latisha ProviderMD - 05/01/2021 1:18 PM CDT Final Discharge Planning Entered On: 05/01/2021 13:20 EDT Performed On: 05/01/2021 13:18 EDT by PAT FISH RN-Workforce Management Manager Final Discharge Planning Discharge Arrangements : Patient Post-Acute Information Patient Name: ESTER GALVAN Gender: Female : [birth year] Age: 51 Years [place] Referral(s): Service: Organization: Business Address: Phone Number: [facility] - [address], [address], [place], [address] Patient Offered Choice/Affiliations Explained : [...] Services (Related/SOC within 3 days)-06 PAT FISH RN-Workforce Management Manager - 05/01/2021 13:18 EDT Final Narrative Note Final Narrative Note : DC orders noted. Pt's pain is controlled now. Pt needs a BSC and has no DME provider preference. Obtained one from [employer] and it has been delivered. Referral sent to A via [employer] and confirmed acceptance with [facility]. No other CM needs noted. PAT FISH RN-Workforce Management Manager - 05/01/2021 13:18 EDT documented in this encounter Plan of Treatment Not on file documented as of this encounter Visit Diagnoses Not on filedocumented in this encounter
--- OUTSIDE RECORDS SUMMARY | 2025-04-30 07:52 | XMS_ITS | Encounter Summary ---
Author Organization [employer] ([place], [place], [place], [place]) Address [address] [place] [address] Care Team Providers Care Financial Administrative Assistant Name Role Phone Unavailable Primary Care Provider Unavailabl e Encounter Details Date Type Department Care Team (Late st Contact Info) Description 05/01/2021 Transcribed Document [facility] Radiology [address] [place] [address] Janice Pan MD [facility] [address] [place] [address] Social History Tobacco Use Types [...] FUENTES PA-FAM CC: postop medical management S: Pt is doing ok. No f'/c/s. No n/v/d. (+) gas, (-) BM. No CP, SOA, palpitations. No cough or sputum. Urinating well. +post op pain. Using incentive spirometer. HPI: 51 YO female with spinal stenosis who presented to [facility] for lumbar fusion by Dr. Clemons. Pt has failed outpt conservative therapy and elected for surgical intervention. We are asked to follow for postop medical management. Initial visit on floor --- Denies prior stroke or seizure. Denies [place], CHF or cardiac arrhythmia. Denies DM. Denies [...] ovale) Scoliosis Ulcerative colitis PSHx: Tubal ligation ([id number]). Cholecystectomy ([id number]). uterine ablation. neck surgery FHx: Mother - [...] injectable kit gabapentin 100 mg oral capsule [place] 10 mg-325 mg oral tablet 1 Tab, PRN, Oral, Q6H [place] 7.5 mg-325 mg oral tablet 1 Tab, [...] Temp 98.7 (MAY 01 05:09) 98 (MAY 01:00) 98.6 (APR 30:) Mon HR 101 (MAY 01:) 72 (APR 30:) 108 (APR 30 18:16) Resp Rate 14 (MAY 01 05:) 14 (MAY 01 05:) 18 (APR 30 20:45) SBP 99 (MAY 01) 98 (APR 30) 120 (MAY 01:) DBP L 55 (MAY 01:) L 55 (MAY 01:) 71 (APR 30 14:21) MAP 68 (MAY 01:) 68 (MAY 01:) [...]
--- OUTSIDE RECORDS SUMMARY | 2025-04-30 07:52 | XMS_ITS | Encounter Summary ---
Author Organization [employer] ([place], [place], [place], [place]) Address [address] [place] [address] Care Team Providers Care Sleep Technologist Name Role Phone Unavailable Primary Care Provider Unavailabl e Encounter Details Date Type Department Care Team (Late st Contact Info) Description 04/29/2021 Transcribed Document [facility] [place] [facility] [place] [address] ProviderLatisha MD [address] [place] [address] Social History Tobacco Use Types [...] Latisha ProviderMD - 04/29/2021 8:52 AM CDT [facility] Main OR IntraOp Summary Primary Physician: JAMI ISLAS MD-SNU Finalized Date/Time: 05/02/21 15:35:56 Pt. Name: ESTER GALVAN SHADY [place]/Sex: 1970 Female Med Rec #: [id number] Physician: JAMI ISLAS MD-SNU Financial #: [id number] Pt. Type: O Room/Bed: [facility]/1 Admit/Disch: 04/29/21 06:48:00 - 05/01/21 17:56:00 Institution: [facility] IntraOp Case Attendance Entry 1 Entry 2 Entry 3 Case Attendee JANEL, JAMI DHARA, GHANSAH, SUAD DADZIE, LEVIN, ALESSANDRA, PERSONAL SERVICE REPRESENTATIVE, MD-SNU MD-ANS BORDER PATROL AGENT Role Performed Surgeon/Proceduralist, Anesthesiologist of BORDER PATROL AGENT/Nurse [employer] Plans Staff Officer First Record Time In 04/29/21 08:05:00 04/29/21 08:05:00 04/29/21 08:05:00 Time Out 04/29/21 10:42:00 04/29/21 10:42:00 04/29/21 10:42:00 Procedure MIS Posterior Fusion CT MIS Posterior Fusion CT MIS Posterior Fusion CT Guided Guided Guided Other Attendee Superficial Wound Closed By: Last Modified By: Yaquelin Murray, Yaquelin Quiles, Yaquelin Quiles Rn 04/29/21 10:42:51 04/29/21 10:42:51 04/29/21 10:42:51 Entry 4 Entry 5 Entry 6 Case Attendee Yaquelin Murray, Chris Butts, DAGOBERTO HOLCOMB Non [facility] Student Nurse [employer] Plans Staff Officer Role Performed Quality Assurance/R&D Lab Technician, First Scrub, First Student Time In 04/29/21 [...] MCKEON OTHER, ATTENDEE JERSON GUZMAN Role Performed Medical Cost Consultant Vendor Physician special ed assistant Time In 04/29/21 08:05:00 04/29/21 08:05:00 04/29/21 08:05:00 Time Out 04/29/21 10:42:00 04/29/21 10:42:00 04/29/21 10:42:00 Procedure MIS Posterior Fusion CT MIS Posterior Fusion CT MIS Posterior Fusion CT Guided Guided Guided Other Attendee LISA Manning Superficial Wound Closed By: Last Modified By: Yaquelin Murray Rn Compton, Tracy R, Yaquelin Quiles, Rn 04/29/21 10:42:51 04/29/21 10:42:51 04/29/21 10:42:51 [facility] IntraOp Case Attendance Audit 04/29/21 10:42:51 Adult Nurse Practitioner: [id number] Modifier: [id number] <+> Time Out 1 <*> Procedure [...] MIS Posterior Fusion CT Guided 04/29/21 08:47:07 Adult Nurse Practitioner: [id number] Modifier: [id number] 1 <*> Procedure MIS Posterior Fusion CT [...] Role Performed <+> 9 Procedure 04/29/21 08:29:09 Adult Nurse Practitioner: [id number] Modifier: [id number] 1 <+> Time In 1 <*> Procedure [...] Procedure <+> 8 Other Attendee 04/29/21 07:37:14 Adult Nurse Practitioner: [id number] Modifier: [id number] <+> 1 Procedure 2 <*> Procedure MIS Posterior Fusion CT Guided 3 <*> Procedure MIS Posterior Fusion CT Guided 4 <*> Procedure MIS Posterior Fusion CT Guided 5 <*> Procedure MIS Posterior Fusion CT Guided 6 <*> Procedure MIS Posterior Fusion CT Guided 04/29/21 07:32:08 Adult Nurse Practitioner: [id number] Modifier: [id number] <+> 6 Case Attendee <+> 6 Role Performed <+> 6 Procedure [facility] IntraOp Case Times Entry 1 Patient In Room Time 04/29/21 08:05:00 Out Room Time 04/29/21 10:42:00 Anesthesia Start Time 04/29/21 08:05:00 Stop Time 04/29/21 10:42:00 Surgery / Procedure Times Start Time 04/29/21 08:52:00 Stop Time 04/29/21 10:32:00 Last Modified By: Yaquelin Murray Rn 04/29/21 10:42:41 [facility] IntraOp Case Times Audit 04/29/21 10:42:41 Adult Nurse Practitioner: [id number] Modifier: [id number] <+> 1 Out Room Time <+> 1 Stop Time <+> 1 Stop Time 04/29/21 08:57:53 Adult Nurse Practitioner: [id number] Modifier: [id number] <+> 1 Start Time [facility] IntraOp Cautery Entry 1 ESU Identification Cautery Type Monopolar ESU ID Number [id number] ID Type Hospital Number Cautery Settings Cut Setting 45 Coag Setting 45 Bipolar Setting 45 ESU Grounding Pad Ground Pad Type Adult Grounding Pad Site Right thigh Grounding Pad Yaquelin Murray Rn Applied By Grounding Pad Site Warm, dry and intact Skin Condition Before Cautery Grounding Pad Site Unchanged Skin Condition After Cautery Last Modified By: Yaquelin Murray Rn 04/29/21 07:31:20 [facility] IntraOp Communication Entry 1 Communication To Family/Significant other Communication By Yaquelin Murray Rn Date and Time 04/29/21 08:58:00 Last Modified By: Yaquelin Murray Rn 04/29/21 08:58:03 [facility] IntraOp Counts Verification Entry 1 Procedure MIS Posterior Fusion CT Guided Count Info Count Type Sponge, Sharps Counts Verification Baseline/pre-procedure Sequence Count Results Not Applicable Counts Performed By Count Performed By Chris Wu, SUPERVISOR BLASTING (Scrub) Count Performed By Yaquelin Murray Rn (RN) Last Modified By: Yaquelin Murray Rn 04/29/21 07:32:22 [facility] IntraOp Counts Final Entry 1 Procedure MIS Posterior Fusion CT Guided Final Count Info Count Type Sponge, Sharps Counts Verification Skin Closure/end of Sequence procedure Count Results Correct, surgeon notified Counts Performed By Count Performed By Chris Wu, SUPERVISOR BLASTING (Scrub) Count Performed By Yaquelin Murray Rn (RN) Last Modified By: Yaquelin Murray Rn 04/29/21 10:20:51 [facility] IntraOp Delays Entry 1 Delay Reason Surgeon late - no reason Duration 5 Minute(s) Last Modified By: Yaquelin Murray Rn 04/29/21 08:07:28 [facility] IntraOp Departure from OR Entry 1 Integumentary Assessment Integumentary WDL Assessment WDL Transfer/Handoff Transfer to PACU Phase I Handoff Method Bedside/Face to face, Phone call Post-op Transport Stretcher/[place] Via Patient Transport ALESSANDRA LEVIN APRN, Accompanied by GAL, DAGOBERTO PHILLIPS, Mercedes Emp Student Nurse [employer] Plans Staff Officer, Yaquelin Murray Rn Last Modified By: Yaquelin Murray Rn 04/29/21 07:32:50 [facility] IntraOp Dressing and Packing Entry 1 Type Dressing Location LOWER BACK Wound Dressing Item [place] Last Modified By: Yaquelin Murray Rn 04/29/21 07:33:09 [facility] IntraOp Fire Risk Assessment Entry 1 Fire [...] Modified By: Yaquelin Murray Rn 04/29/21 07:33:22 [facility] IntraOp General Case Foreign Banknote Teller 1 Case Information OR OR 10 SJ Case Level 1 Room Verified Yes Wound Class I - Clean Specialty Neurosurgery Anesthesia Type General ASA Class 2 Diagnosis Preop Diagnosis LUMBAR STENOSIS Postop Same As Preop No Postop Diagnosis SEE MD NOTES Last Modified By: Yaquelin Murray Rn 04/29/21 07:33:46 [facility] IntraOp Implant Log Entry 1 Entry 2 Entry 3 Type Implant (Synthetic) Tissue Implant Implant (Synthetic) (Biologic) Implant Log Implant Type Hardware Hardware Tissue Implant Type Bone Implant CAGE EIT PLIF H 8MM 8D BONE VIVIGEN FORMABLE IMP VPR PRM CFXFEN XTAB Identification 14/06-222847 [facility]-[id number] Description Implant Quantity 1 1 4 Implant Site BACK back BACK Implant [id number] Identification Model Number Implant Identification Serial Number Implant [id number] Identification Lot Number Implant J&J:Depuy:Depuy Spine Lifenet:Lifenet J&J:Depuy:Depuy Spine Identification Transplant Srv Broadcast Designer Name: Implant [id number] Identification Catalog Number Implant Size Implant Has an Yes Yes Expiration Date Implant Expiration 07/19/24 03/31/22 Date Wasted Radioactive Material Time Implanted Tissue Implant Continue for Tissue Implant Documentation Tissue Identification Number Graft Prep Per Yes Broadcast Designer Instructions: Tissue Preparation N/A Method: Reconstitution Solution: Reconstitution Solution Lot Number Reconstitution Solution Expiration Date: Thawing Solution Thawing Solution Lot Number Thawing Solution Expiration Date Preparation Materials, Other Preparation Materials, Other Lot Number Preparation Materials, Other Expiration Date Tissue JAMI ISLAS, Prepared/Processed MD-SNU By Broadcast Designer Yes Paperwork Completed Implant Type Comment Last Modified By: Yaquelin Murray Rn Compton, Tracy R, Rn Compton, Tracy R, Rn 04/29/21 09:35:06 04/29/21 10:11:55 04/29/21 10:11:55 Entry 4 Entry 5 Entry 6 Type Implant (Synthetic) Implant (Synthetic) Implant (Synthetic) Implant Log Implant Type Hardware Hardware Hardware Tissue Implant Type Implant MIS COLTON PLY SCRW SET JUAN LUIS SPINE VIPER JUAN LUIS SPINE VIPER Identification [id number] Description Implant Quantity 4 1 1 Implant Site BACK BACK BACK Implant Identification Model Number Implant Identification Serial Number Implant Identification Lot Number Implant J&J:Depuy:Depuy Spine J&J:Depuy:Depuy Spine J&J:Depuy:Depuy Spine Identification Broadcast Designer Name: Implant [id number] Identification Catalog Number Implant Size Implant Has an Expiration Date Implant Expiration Date Wasted Radioactive Material Time Implanted Tissue Implant Continue for Tissue Implant Documentation Tissue Identification Number Graft Prep Per Broadcast Designer Instructions: Tissue Preparation Method: Reconstitution Solution: Reconstitution Solution Lot Number Reconstitution Solution Expiration Date: Thawing Solution Thawing Solution Lot Number Thawing Solution Expiration Date Preparation Materials, Other Preparation Materials, Other Lot Number Preparation Materials, Other Expiration Date Tissue Prepared/Processed By Broadcast Designer Paperwork Completed Implant Type Comment Last Modified By: Yaquelin Murray Rn Compton, Tracy R, Rn Compton, Tracy R, Rn 04/29/21 10:11:55 04/29/21 10:11:55 04/29/21 10:11:55 [facility] IntraOp Implant Log Audit 04/29/21 10:11:55 Adult Nurse Practitioner: [id number] Modifier: [id number] <+> 2 Implant Identification Description <+> 2 Implant Identification Broadcast Designer Name: <+> 2 Implant Expiration Date <+> 2 Implant Site <+> 2 Implant Quantity <+> 2 Implant Identification Catalog Number <+> 2 Tissue Implant Type <+> 2 Graft Prep Per Broadcast Designer Instructions: <+> 2 Tissue Preparation Method: <+> 2 Tissue Prepared/Processed By <+> 2 Broadcast Designer Paperwork Completed <+> 2 Implant Identification Model Number <+> 2 Implant Has an Expiration Date <+> 2 Type <+> 3 Implant Identification Description <+> 3 Implant Identification Broadcast Designer Name: <+> 3 Implant Site <+> 3 Implant Quantity <+> 3 Implant Identification Catalog Number <+> 3 Implant Type <+> 3 Type <+> 4 Implant Identification Description <+> 4 Implant Identification Broadcast Designer Name: <+> 4 Implant Site <+> 4 Implant Quantity <+> 4 Implant Identification Catalog Number <+> 4 Implant Type <+> 4 Type <+> 5 Implant Identification Description <+> 5 Implant Identification Broadcast Designer Name: <+> 5 Implant Site <+> 5 Implant Quantity <+> 5 Implant Identification Catalog Number <+> 5 Implant Type <+> 5 Type <+> 6 Implant Identification Description <+> 6 Implant Identification Broadcast Designer Name: <+> 6 Implant Site <+> 6 Implant Quantity <+> 6 Implant Identification Catalog Number <+> 6 Implant Type <+> 6 Type [facility] IntraOp Intraoperative Assessment Entry 1 Handoff Method [...] Modified By: Yaquelin Murray Rn 04/29/21 07:34:06 [facility] IntraOp Intraoperative Equipment Entry 1 Type Equipment Equipment Equipment Trever Suction System ID Number [id number] Setting ON Intraop Monitoring Blood Pressure Non-Invasive BP Device Source Antiembolic Devices Antiembolic Devices Sequential compression device, knee high Antiembolic Device Bilateral Location Antiembolic Device [id number] ID Number Antiembolic Device ON Setting Scopes Photo/Video Documentation Last Modified By: Yaquelin Murray Rn 04/29/21 07:34:39 [facility] IntraOp Medication Admin Entry 1 Entry 2 Entry 3 Medication/Irrigant lidocaine 1% w/ SPNG SURGFOAM thrombin 5000units epinephrine 1:100,000 [id number] topical powder - 30ml vial - [id number] Combo Med List 1 - Combo Med 1 - Combo Med Time Administered 04/29/21 08:52:00 04/29/21 08:52:00 04/29/21 08:52:00 Route of LOAL TOPICAL TOICAL Administration Dose Dose 20 5000 Unit of Measure ml units Volume Administered By JAMI ISLAS TUTT, MATTHEW PAIGE, TUTT, MATTHEW PAIGE, MD-SNU MD-SNU MD-SNU Procedure Irrigation Irrigant Volume In Irrigant Volume Out Last Modified By: Yaquelin Murray Rn Compton, Tracy R Rn Yaquelin Murray Rn 04/29/21 10:34:20 04/29/21 10:34:20 04/29/21 10:34:20 Entry 4 Medication/Irrigant Neosporin 15Gm ointment - [id number] Combo Med List Time Administered 04/29/21 08:52:00 Route of TOICAL Administration Dose Dose Unit of Measure Volume Administered By JAMI ISLAS MD-SNU Procedure Irrigation Irrigant Volume In Irrigant Volume Out Last Modified By: Yaquelin Murray Rn 04/29/21 10:34:20 [facility] IntraOp Medication Admin Audit 04/29/21 10:34:20 Adult Nurse Practitioner: [id number] Modifier: [id number] 1 <*> Medication/Irrigant lidocaine 1% w/ epinephrine 1:100,000 30ml vial - [id number] 1 <*> Route of Administration LOAL 1 <*> Administered By JAMI ISLAS MD-SNU 1 <*> Dose 20 1 <*> Time Administered 04/29/21 08:52:00 1 <*> Unit of Measure ml Entry 2 was deleted. Higher numbered entries shifted one position to fill the gap. <-> 2 Medication/Irrigant Marcaine 0.25% 30ml vial - [id number] <-> 2 Route of Administration LOCAL <-> 2 Administered By JAMI ISLAS MD-SNU <-> 2 Dose 30 <-> 2 Time Administered 04/29/21 08:52:00 <-> 2 Combo Med List 2 - Combo Med <-> 2 Unit of Measure ml 3 <*> Medication/Irrigant SPNG SURGFOAM 8.7J86S67LE-307839 3 <*> Route of Administration TOPICAL 3 <*> Administered By JAMI ISLAS MD-SNU 3 <+> Dose 3 <*> Time Administered 04/29/21 08:52:00 3 <*> Combo Med List 1 - Combo Med 3 <+> Unit of Measure 4 <*> Medication/Irrigant thrombin 5000units topical powder - [id number] 4 <*> Route of Administration TOICAL 4 <*> Administered By JAMI ISLAS MD-SNU 4 <-> Dose 5000 4 <*> Time Administered 04/29/21 08:52:00 4 <-> Combo Med List 1 - Combo Med 4 <-> Unit of Measure units 5 <-> Medication/Irrigant Neosporin 15Gm ointment - [id number] 5 <-> Route of Administration TOICAL 5 <-> Administered By JAMI ISLAS MD-SNU 5 <-> Time Administered 04/29/21 08:52:00 Entry 6 was deleted. Higher numbered entries shifted one position to fill the gap. <-> 6 Medication/Irrigant Kenalog 40mg 1ml injection - [id number] <-> 6 Route of Administration NJECTION <-> 6 Administered By JAMI ISLAS MD-SNU <-> 6 Dose 40 <-> 6 Time Administered 04/29/21 08:52:00 <-> 6 Combo Med List 2 - Combo Med <-> 6 Unit of Measure mg 04/29/21 09:00:04 Adult Nurse Practitioner: [id number] Modifier: [id number] 1 <*> Medication/Irrigant lidocaine 1% w/ epinephrine 1:100,000 30ml vial - [id number] 1 <+> Dose 1 <+> Time Administered 2 <*> Medication/Irrigant Marcaine 0.25% 30ml vial - [id number] 2 <+> Dose 2 <+> Time Administered 2 <+> Combo Med List 3 <*> Medication/Irrigant SPNG SURGFOAM [id number]-464021 3 <+> Time Administered 4 <*> Medication/Irrigant thrombin 5000units topical powder - [id number] 4 <+> Time Administered 5 <*> Medication/Irrigant Neosporin 15Gm ointment - [id number] 5 <+> Time Administered <+> 6 Medication/Irrigant <+> 6 Route of Administration <+> 6 Administered By <+> 6 Dose <+> 6 Time Administered <+> 6 Combo Med List <+> 6 Unit of Measure [facility] IntraOp Patient Positioning Entry 1 Procedure MIS [...] Positioned By JAMI ISLAS MD-SNU, ALESSANDRA LEVIN, PERSONAL SERVICE REPRESENTATIVE, GAL, DAGOBERTO PHILLIPS, Non Emp Student Nurse Aad[employer] Plans Staff Officer, Yaquelin Murray Rn Position Verified Positioning Yes Verified by Anesthesia Positioning Yes Verified by Surgeon Last Modified By: Yaquelin Murray Rn 04/29/21 08:47:15 [facility] IntraOp Patient Positioning Audit 04/29/21 08:47:15 Adult Nurse Practitioner: [id number] Modifier: [id number] 1 <*> Procedure MIS Posterior Fusion CT Guided [facility] IntraOp Sign In Entry 1 Patient, Site, [...] Modified By: Yaquelin Murray Rn 04/29/21 07:36:06 [facility] IntraOp Sign Out Entry 1 RN Confirmation [...] Modified By: Yaquelin Murray Rn 04/29/21 10:42:47 [facility] IntraOp Sign Out Audit 04/29/21 10:42:47 Adult Nurse Practitioner: [id number] Modifier: [id number] <+> 1 RN Sign Out Signature Date/Time [facility] IntraOp Skin Prep Entry 1 Procedure MIS Posterior Fusion CT Guided Prescribed Yes Pre-Surgical Prep Completed Prep Area LOWER BACK Intraop Prep Integumentary WDL Assessment WDL Prep Agents Chlorhexidine gluconate/alcohol, DuraPrep Prep by Yaquelin Murray Rn Hair Removal Methods No hair removal performed Last Modified By: Yaquelin Murray Rn 04/29/21 07:37:06 [facility] IntraOp Surgical Procedures Entry 1 Procedure MIS Posterior Fusion CT Guided Additional (MIS L5-S 1 TLIF USING Procedure AIRO) Description Primary Procedure Yes Primary Surgeon JAMI ISLAS MD-SNU Start 04/29/21 08:52:00 Stop 04/29/21 10:32:00 Anesthesia Type General Specialty Neurosurgery Wound Class I - Clean Last Modified By: KARI ROBIN RN 04/30/21 07:04:10 [facility] IntraOp Surgical Procedures Audit 04/30/21 07:04:10 Adult Nurse Practitioner: [id number] Modifier: [id number] <*> Procedure MIS Posterior Fusion CT Guided 04/29/21 10:42:49 Adult Nurse Practitioner: [id number] Modifier: [id number] <+> 1 Start <+> 1 Stop [facility] IntraOp Temp Regulation Devices Entry 1 Temp Regulation Temperature Forced Air Warming Regulation Device device, Warm blankets Temperature 10761 Regulation Device Serial/Unit Number Temperature Upper body Regulation Site Temperature Device ON Setting Temperature ALESSANDRA LEVIN APRN, Regulation Device BORDER PATROL AGENT Applied by Last Modified By: Yaquelin Murray Rn 04/29/21 07:38:22 [facility] IntraOP Time Out Entry 1 Procedure to [...] Modified By: Yaquelin Murray Rn 04/29/21 08:54:31 [facility] IntraOP Time Out Audit 04/29/21 08:54:31 Adult Nurse Practitioner: [id number] Modifier: [id number] 1 <*> Time Out Pause Time 04/29/21 08:40:00 1 <*> Procedure to be Performed MIS Posterior Fusion CT Guided 04/29/21 08:40:17 Adult Nurse Practitioner: [id number] Modifier: [id number] 1 <+> Time Out Pause Time 1 <*> Procedure to be Performed MIS Posterior Fusion CT Guided [facility] IntraOp X-Ray and Images Entry 1 X-Ray/Imaging Type Other Fluoroscopy Type O-Arm Site BACK Fibreglass Laminator Name MCKEON[place]O Protective Devices No Used Last Modified By: Yaquelin Murray Rn 04/29/21 08:29:20 [facility] IntraOp X-Ray and Images Audit 04/29/21 08:29:20 Adult Nurse Practitioner: [id number] Modifier: [id number] <+> 1 Fibreglass Laminator Name Case Comments <None> Finalized By: AUDELIA SERRANO Document Signatures Signed By: Yaquelin Murray Rn 04/29/21 10:42 KARI ROBIN RN 04/30/21 07:04 AUDELIA SERRANO 05/02/21 15:35 Unfinalized History Date/Time Username Reason for Unfinalizing Freetext Reason for Unfinalizing 04/30/21 07:04 WASSONSY Correct Documentation 05/02/21 15:33 WATLIANA Correct Billing Electronically signed by Chon [facility] Conversion Encyclopedia Research Worker Cerner at 01/04/2023 12:47 PM CDT documented in this encounter Plan of Treatment Not on file documented as of this encounter Visit Diagnoses Not on filedocumented in this encounter
--- OUTSIDE RECORDS SUMMARY | 2025-04-30 07:52 | XMS_ITS | Encounter Summary ---
Author Organization [employer] ([place], [place], [place], [place]) Address [address] [place] [address] Care Team Providers Care Senior Games Technician Name Role Phone Unavailable Primary Care Provider Unavailabl e Encounter Details Date Type Department Care Team (Late st Contact Info) Description 04/29/2021 Transcribed Document [facility] [place] [facility] [place] [facility] [place] [address] ProviderLatisha MD [address] [place] [address] Social History Tobacco Use Types Packs/Day Years Used Date Smoking Tobacco: Never Assessed Comments Unknown Sex and Gender Information Value Date Recorded Sex Assigned at Not on file Legal Sex Female 5:30 PM CDT Gender Identity Not on file Sexual Orientation Not on file documented as of this encounter Miscellaneous Notes * Cerner Conversion Note - Historical ProviderMD - 04/29/2021 11:08 AM CDT Pain [...]
--- OUTSIDE RECORDS SUMMARY | 2025-04-30 07:52 | XMS_ITS | Encounter Summary ---
Author Organization [employer] ([place], [place], [place], [place]) Address [address] [place] [address] Care Team Providers Care Buyers' Agent Name Role Phone Unavailable Primary Care Provider Unavailabl e Encounter Details Date Type Department Care Team (Late st Contact Info) Description 04/27/2021 Transcribed Document [facility] [place] Counts include 234 beds at the [facility] [place] [address] ProviderLatisha MD [address] [place] [address] Social History Tobacco Use Types [...] On: 04/27/2021 15:29 EDT by MARY GARBER Photovoltaic Fabrication Technician Primary Insurance Authorization Authorization and Policy Numbers : Insurance 1 Health Plan: [employer] [facility] Policy Number: [id number] Authorization Number: Insurance Primary Name : Veronica [id number] Authorization Status-Primary : Opo status approv Authorized Service Begin Date-Primary : 04/29/2021 EDT Observation Authorization Nbr-Primary : [id number] Authorization Comments-Primary : Pt is geoffrey for OUT PT MIS Posterior Fusion CT Guided on 04/29/21 [place] OP auth# [id number] per STAR Historical Authorization Comments-Primary : No Authorization Comments Found MARY GARBER, Photovoltaic Fabrication Technician - 04/27/2021 15:29 EDT Electronically signed by Chon, [facility] Conversion Adventure Guide Cerner at 01/04/2023 1:12 PM CDT documented in this encounter Plan of Treatment Not on file documented as of this encounter Visit Diagnoses Not on filedocumented in this encounter
--- OUTSIDE RECORDS SUMMARY | 2025-04-30 07:52 | XMS_ITS | Encounter Summary ---
Author Organization [employer] ([place], [place], [place], [place]) Address [address] [place] [address] Care Team Providers Care Airport Operations Specialist Name Role Phone Unavailable Primary Care Provider Unavailabl e Encounter Details Date Type Department Care Team (Late st Contact Info) Description 04/24/2021 Transcribed Document [facility] Family Medicine [facility] [place] [address] ProviderLatisha MD [address] [place] [address] Social History Tobacco Use Types Packs/Day Years Used Date Smoking Tobacco: Never Assessed Comments Unknown Sex and Gender Information Value Date Recorded Sex Assigned at Not on file Legal Sex Female 5:30 PM CDT Gender Identity Not on file Sexual Orientation Not on file documented as of this encounter Miscellaneous Notes * Cerner Conversion Note - Historical ProviderMD - 04/24/2021 3:30 PM CDT PAT [...] Source : Measured Height Entry Format : [place] Height, Feet : 5 ft(Converted to: 152 cm, 60 Inch) Height, Inches : 6 Inch(Converted to: 0 ft 6 Inch, 15.24 cm) Clinical Height : 167.64 cm Weight Source : Standing scale Weight Entry Format : [place] Clinical Dosing Weight : 79.09 kg Weight, Pounds : 174 lb Body Surface Area (BSA) : 1.89 m2 Body Mass Index : 28.1 kg/m2 (HI) [place] Body Weight : 59 kg Arleth Curry Rn - 04/27/2021 8:15 EDT Health Histories Smoking Status : Former smoker, quit more than 30 days ago Smokeless Tobacco Status : Never Implant/Device Type, College Or University Faculty Member and Model : hardware in neck Charanjit [...] : Yes Spiritual/Cultural Needs Comment : 04/29 Episcopal Preference : Protestant Spiritual/Cultural Needs Comment : 04/29 Charanjit Brandt Rn - 04/24/2021 15:30 EDT [place] Suicide Severity Rating Scale (C-SSRS) CSSRS Past [...] Info Legal Guardian : Spouse Support Person/Patient Hand Suture Winder : Yes Support Person/Pt Rep Name : Hector Bernardo - Support Person/Pt Rep Contact Information : [phone] Want Family/Rep/Phys Notified of Admit : No Charanjit Brandt Rn - 04/24/2021 15:30 EDT Emergency Contact #1 : Hector Bernardo Emergency Contact #1 Emergency Contact #1 Relationship : Arleth Curry Rn - 04/27/2021 8:23 EDT Emergency Contact #2 : ` Emergency Contact #2 Phone Number : ` Emergency Contact #2 Relationship : ` Information Obtained From : Patient Primary Language : Wolof Communication Barrier : None Agriculture Technician Needed : No Charanjit Brandt Rn - [...]
--- NOTE | 2025-04-30 08:00 | US_ITS ---
FINAL REPORT CLINICAL HISTORY: feeling of pulsating in abdomen COMPARISON: None FINDINGS: Sonographic images were obtained of the abdominal aorta. The abdominal aorta measures up to 1.9 in greatest dimensions. The common iliac arteries are within normal limits. IMPRESSION: No evidence of aortic aneurysm. Reviewed, Interpreted and Dictated by Aixa Maddox MD Transcribed by Diana Baez Authenticated and [facility]
[2025-04-30 08:48] VITALS: BMI 28.6
[2025-04-30 09:01] LABS: Chloride 99 mmol/L (98-107); Potassium 4.0 mmoL/L (3.5-5.1); Sodium 141 mmol/L (136-145)
[2025-04-30 09:04] LABS: Anion Gap 12.0 mEq/L (5-15); Blood Urea Nitrogen 15 mg/dl (7-17); Carbon Dioxide 34 mmol/L (22.0-30.0); Creatinine Clearance Estimated 89 mL/min (50-200); Creatinine,Serum 0.90 mg/dl (0.52-1.04); Estimated Glomerular Filt Rate 65 ml/min (>60); GFR (African American) 79 ML/MIN (>60)
[2025-04-30 09:05] LABS: Calcium 9.3 mg/dl (8.4-10.2); Glucose 97 mg/dl (74-100)
[2025-04-30] MEDS: SODIUM CHLORIDE 0.9% 10ML VIAL 8 ML IV (09:20)
[2025-04-30] MEDS: FAMOTIDINE 20MG/2ML VIAL 20 MG IV (09:20)
[2025-04-30] MEDS: METOPROLOL TARTRATE 50MG TABLET PO ×2 (09:21→10:16)
[2025-04-30] MEDS: IVABRADINE HCL 7.5MG TABLET PO (09:21)
[2025-04-30 09:28] LABS: HCG Qualitative, Serum Negative (Negative)
[2025-04-30 09:38] VITALS: BP 132/73; PULSE 92; RESP 18; O2SAT 100
[2025-04-30 10:10] VITALS: BP 128/74; PULSE 74; O2SAT 98
[2025-04-30 10:38] VITALS: BP 151/98; PULSE 71; O2SAT 96
[2025-04-30 10:47] VITALS: BP 117/74; PULSE 65; O2SAT 100
[2025-04-30] MEDS: IOPAMIDOL-370 (76%);100ML BOTTLE 85 ML IV (10:47)
[2025-04-30] MEDS: 0.9 % SODIUM CHLORIDE 50 ML VIAL IV (10:47)
[2025-04-30] MEDS: SODIUM CHLORIDE 0.9% 10ML SYR (RAD ONLY) 10 ML IV (10:47)
[2025-04-30 10:51] VITALS: BP 103/63; PULSE 81; O2SAT 97
[2025-04-30 10:56] VITALS: BP 115/66; PULSE 69; O2SAT 96
[2025-04-30] MEDS: METHYLPREDNISOLONE SOD SUCC 125MG VIAL 125 MG IV (10:56)
== END 2025-04-30 11:00 | disposition home or self-care (01) ==
PROVIDERS: PCP Family Medicine; Visit Provider Nurse Practitioner
DX: R06.02 Shortness of breath (principal); R00.2 Palpitations; R07.89 Other chest pain; R53.83 Other fatigue; R94.39 Abnormal result of other cardiovascular function study; Z82.49 Family history of ischemic heart disease and other diseases of the circulatory system
CPT/HCPCS: 75574; 76706; 80048; 84703; J1200; J2919; Q9967

== ENCOUNTER 2025-06-10 13:41 | Outpatient (CLI) | payer BC, SELFPAY ==
--- OUTSIDE RECORDS SUMMARY | 2025-04-30 | XMS_ITS | Encounter Summary ---
Author Organization Healthcare Address [address] [place] [address] Care Team Providers Care Passenger Flagman Name Role Phone Unavailable Primary Care Provider Unavailabl e Encounter Details Date Type Department Care Team (Late st Contact Info) Description 04/30/2025 Ancillary Procedure [facility] [address] [place] [id number] Ischemia Social History Tobacco Use Types Packs/Day Years Used Date Smoking Tobacco: Never Assessed Comments Unknown Sex and Gender Information Value Date Recorded Sex Assigned at Not on file Legal Sex Female 7:47 PM EDT Gender Identity Not on file Sexual Orientation Not on file documented as of this encounter Plan of Treatment Not on file documented as of this encounter Procedures Procedure Name Priority Date/Time Associated Diagnosis Comments CT ANGIO CARDIAC CORONARY ARTERIES Routine 04/30/2025 12:00 AM EDT Ischemia documented in this encounter Results * CT Angio Cardiac Coronary Arteries (04/30/2025 12:00 AM EDT) Anatomical Region Laterality Modality Heart Computed Tomogra phy Impressions 05/02/2025 2:59 PM EDT 1. No coronary calcification with an Agatston score = 0 using the AJ-130 method. Vascular age is 41 years. 2. Normal coronaries 3. CAD-RADS 0: Management recommendations: Reassurance. Consider non-atherosclerotic causes of chest pain. 4. No significant non coronary cardiac findings in particular normal cardiac chambers, non-coronary vessels in the field of view and unremarkable pericardium. 5. Extracardiac structures in the field of view are unremarkable. CRITICAL RESULT: No. COMMUNICATION: Per this written report. Drafted by Jose Ramon Espinosa MD on 05/02/2025 2:31 PM Final report signed by Jose Ramon Espinosa MD on 05/02/2025 2:59 PM Narrative 05/02/2025 2:59 PM EDT CLINICAL INDICATION: 55 years Female Symptoms: Clinical features suggesting myocardial ischemia TECHNIQUE: Procedure Data Image Acquisition: Images were acquired at [facility] in [place] on 04/30/2025, and received/interpreted at [facility] on 05/02/2025. A 128-slice MDCT scanner ([employer] View) was used for data acquisition. A non-contrast coronary calcium scan was initially performed. was performed. Bolus tracking in the ascending aorta with a threshold of 180HU. Immediately afterwards, ECG synchronized Cardiac CT was then performed from cardiac base to apex using retrospective gating with ECG tube current modulation. A total of 85 mL Isovue 370mg/mL contrast media was administered at 5 mL/sec followed by a saline flush using a biphasic injection protocol. A tube voltage of 120 kVp was used. The patient received the following medications prior to the Cardiac CT: 150mg of po metoprolol, 15mg of po ivabradine, and 0.4mg sublingual nitroglycerin. The average heart rate at the time of acquisition was 64 bpm Image Reconstruction: Transaxial images were reconstructed at 0.63 mm slice thickness. Data was reviewed interactively on an advanced workstation ([employer]) capable of 2 and 3 dimensional displays in all conventional reconstruction formats including multiplanar reformations, maximum intensity projections, curved multiplanar reformations, and volume rendered reconstructions. Selected routine images displaying relevant coronary anatomy and pathology were saved and sent to PACS. Complications: None Technical Quality: Overall image quality is Excellent. Coronary artery opacification is Excellent Total DLP (Dose-Length Product): 1170.1mGycm. (16.4 mSv) Please note: The reported value represents the total of one or more individual components during the CT acquisition on this date and at this time, and as such, the same value may appear in more than one CT report depending on the interpreting/reporting physicians. COMPARISON: None. FINDINGS: -CT Coronary Calcium Scoring- LMA= 0 LAD= 0 LCX= 0 RCA= 0 Total calcium score = 0 using the AJ-130 method. The calculated vascular age for this patient is 41 years. There is no identifiable calcification in the aortic wall, mitral annulus/valve, pericardium, myocardium. -Coronary CT Angiography- Coronary Arteries: The coronaries have normal origin and proximal course. The coronary arterial system is right dominant. Note: Stenosis is reported as maximum percentage diameter stenosis. Stenosis grading is reported using the following scheme. Quantitative Stenosis Grading: CAD-RADS 0: 0% - No visible stenosis CAD-RADS 1: 1-24% - Minimal stenosis CAD-RADS 2: 25-49% - Mild stenosis CAD-RADS 3: 50-69% - Moderate stenosis CAD-RADS 4A: 70-99% - Severe stenosis in 1-2 vessels CAD-RADS 4B: Left main >50%, or 3 vessel >70% CAD-RADS 5: 100% - Occluded Left Main: CAD-RADS 0 The left main is long, and bifurcates into the left anterior descending artery and left circumflex artery. LAD and Diagonals: CAD-RADS 0. Large vessel, gives off a diagonal and reaches the apex. No visible atherosclerotic disease LCx and Obtuse Marginals: CAD-RADS 0 Large vessel, gives off a OM and terminates as a PL branch. No visible atherosclerotic disease RCA: CAD-RADS 0 Large dominant vessel, gives off RV marginal, PDA and PL branches. No visible atherosclerotic disease Non Coronary Cardiac Findings: Normal cardiac chamber size. No pericardial thickening or calcification. Normal interatrial and interventricular septum, atrioventricular valves, ventriculo-arterial valves, pulmonary veins and imaged central veins. Central and branch pulmonary arteries in the field of view are unremarkable. Thoracic aorta and imaged thoracic aortic branches in the field of view are unremarkable. The left ventricular systolic function is visually normal. Extra Cardiac Structures: calcified hilar lymph nodes Procedure Note Jose Ramon Espinosa MD - 05/02/2025 CLINICAL INDICATION: 55 years Female Symptoms: Clinical features suggesting myocardial ischemia TECHNIQUE: Procedure Data Image Acquisition: Images were acquired at [facility] in [place] on04/30/2025, and received/interpreted at [facility] on05/02/2025. A 128-slice MDCT scanner ([employer] View) was used fordata acquisition. A non-contrast coronary calcium scan was initiallyperformed. was performed. Bolus tracking in the ascending aorta with athreshold of 180HU. Immediately afterwards, ECG synchronized Cardiac CTwas then performed from cardiac base to apex using retrospective gatingwith ECG tube current modulation. A total of 85 mL Isovue 370mg/mLcontrast media was administered at 5 mL/sec followed by a saline flushusing a biphasic injection protocol. A tube voltage of 120 kVp was used. The patient received the following medications prior to the Cardiac CT:150mg of po metoprolol, 15mg of po ivabradine, and 0.4mg sublingualnitroglycerin. The average heart rate at the time of acquisition was 64 bpm Image Reconstruction: Transaxial images were reconstructed at 0.63 mm slice thickness. Data wasreviewed interactively on an advanced workstation ([employer]) capable of 2and 3 dimensional displays in all conventional reconstruction formatsincluding multiplanar reformations, maximum intensity projections, curvedmultiplanar reformations, and volume rendered reconstructions. Selectedroutine images displaying relevant coronary anatomy and pathology weresaved and sent to PACS. Complications: None Technical Quality: Overall image quality is Excellent. Coronary artery opacification is Excellent Total DLP (Dose-Length Product): 1170.1mGycm. (16.4 mSv) Please note: Thereported value represents the total of one or more individual componentsduring the CT acquisition on this date and at this time, and as such, thesame value may appear in more than one CT report depending on theinterpreting/reporting physicians. COMPARISON: None. FINDINGS: -CT Coronary Calcium Scoring- LMA= 0 LAD= 0 LCX= 0 RCA= 0 Total calcium score = 0 using the AJ-130 method. The calculated vascularage for this patient is 41 years. There is no identifiable calcification in the aortic wall, mitralannulus/valve, pericardium, myocardium. -Coronary CT Angiography- Coronary Arteries: The coronaries have normal origin and proximal course. The coronaryarterial system is right dominant. Note: Stenosis is reported as maximum percentage diameter stenosis.Stenosis grading is reported using the following scheme. Quantitative Stenosis Grading: CAD-RADS 0: 0% - No visible stenosis CAD-RADS 1: 1-24% - Minimal stenosis CAD-RADS 2: 25-49% - Mild stenosis CAD-RADS 3: 50-69% - Moderate stenosis CAD-RADS 4A: 70-99% - Severe stenosis in 1-2 vessels CAD-RADS 4B: Left main >50%, or 3 vessel >70% CAD-RADS 5: 100% - Occluded Left Main: CAD-RADS 0 The left main is long, and bifurcates into the leftanterior descending artery and left circumflex artery. LAD and Diagonals: CAD-RADS 0. Large vessel, gives off a diagonal andreaches the apex. No visible atherosclerotic disease LCx and Obtuse Marginals: CAD-RADS 0 Large vessel, gives off a OM andterminates as a PL branch. No visible atherosclerotic disease RCA: CAD-RADS 0 Large dominant vessel, gives off RV marginal, PDA and PLbranches. No visible atherosclerotic disease Non Coronary Cardiac Findings: Normal cardiac chamber size. No pericardial thickening or calcification. Normal interatrial and interventricular septum, atrioventricular valves,ventriculo-arterial valves, pulmonary veins and imaged central veins. Central and branch pulmonary arteries in the field of view areunremarkable. Thoracic aorta and imaged thoracic aortic branches in the field of vieware unremarkable. The left ventricular systolic function is visually normal. Extra Cardiac Structures: calcified hilar lymph nodes IMPRESSION: 1. No coronary calcification with an Agatston score = 0 using the AJ-130method. Vascular age is 41 years. 2. Normal coronaries 3. CAD-RADS 0: Management recommendations: Reassurance. Considernon- atherosclerotic causes of chest pain. 4. No significant non coronary cardiac findings in particular normalcardiac chambers, non-coronary vessels in the field of view andunremarkable pericardium. 5. Extracardiac structures in the field of view are unremarkable. CRITICAL RESULT: No. COMMUNICATION: Per this written report. Drafted by Jose Ramon Espinosa MD on 05/02/2025 2:31 PM Final report signed by Jose Ramon Espinosa MD on 05/02/2025 2:59 PM Keisha Zee APRN IMG CT PROCEDURES Kaitlin l Result documented in this encounter Visit Diagnoses Diagnosis Ischemia Unspecified circulatory system disorder documented in this encounter
--- NOTE | 2025-06-10 | XR_ITS ---
FINAL REPORT CLINICAL HISTORY: SCOLIOSIS FINDINGS: AP and lateral views of the thoracic spine were obtained. There is no prior exam for comparison. There is no acute fracture or acute malalignment. Vertebral body height is preserved. Dextroscoliosis is noted. There is multilevel degenerative disease in the thoracic spine. No acute paraspinal abnormality. IMPRESSION: Degenerative changes without acute osseous abnormality of the thoracic spine. AP and lateral views of the lumbosacral spine were obtained. There is no prior exam for comparison. There is no acute fracture or acute malalignment. There are changes from posterior fusion at L5-S1. The hardware appears intact. The vertebral body heights are preserved. Mild multilevel degenerative disc disease is noted. There is no acute paraspinal abnormality. IMPRESSION: Degenerative and postoperative changes without acute osseous abnormality of the lumbosacral spine. Reviewed, Interpreted and Dictated by Aixa Maddox MD Transcribed by María Elena Dozier Authenticated and [facility]
--- OUTSIDE RECORDS SUMMARY | 2025-06-10 13:43 | XMS_ITS | Encounter Summary ---
Author Organization [facility] Address [address] [place] [address] Care Team Providers Care Motor Rebuilder Name Role Phone Mehdi Gross MD Primary Care Provider + Reason for Visit * Reason Onset Date Comments Med Refill 04/29/2025 Encounter Details Date Type Department Care Team (Late st Contact Info) Description 04/29/2025 Refill [facility] [address] [place] [address] Mehdi Gross MD [address] [place] [address] Degenerative disc disease, lumbar; Degenerative [...] Description 06/18/2025 8:00 AM EDT Office Visit [facility] [address] [place] [address] Mehdi Gross MD [address] [place] [address] 07/18/2025 8:00 AM EDT Appointment [facility] [address] [place] [address] documented as of this encounter Visit Diagnoses Diagnosis Degenerative disc disease, lumbar Anxiety Anxiety state, unspecified Other osteoarthritis of spine, cervical region documented in this encounter Additional Health Concerns Assessment Noted Time PHQ-2 Depression Total Score: 1 12/05/19 24 8:18 AM EDT documented as of this encounter Care Teams Motor Rebuilder Relationship Specialty Start Date End Date Mehdi Gross MD PCP - General Family Medicine 04/21/17 documented as of this encounter
--- OUTSIDE RECORDS SUMMARY | 2025-06-10 13:43 | XMS_ITS | Clinical Summary ---
Author Organization [facility] Address [address] [place] [address] Care Team Providers Care Sample Steamer Name Role Phone Unavailable Primary Care Provider Unavailabl e Encounters Date Type Department Care Team Description 04/30/2025 Ancillary Procedure [facility] [address] [place] [address] Ischemia from Last 3 Months Social History Tobacco Use Types Packs/Day Years Used Date Smoking Tobacco: Never Assessed Comments Unknown Sex and Gender Information Value Date Recorded Sex Assigned at Not on file Legal Sex Female 7:47 PM EDT Gender Identity Not on file Sexual Orientation Not on file Plan of Treatment Health Maintenance Due Date Last Done Comments [facility]-Depression Screening 1972 [facility]-Infant/Child/Adol SDOH Screenings 1972 [facility]- SDOH Screenings 1990 [facility]-Adult SDOH Screenings 1990 [facility]-Hepatitis B Vaccines (1 of 3 - 19+ 3-dose series) 1991 [facility]-Pap Smear 12/09/2009 12/09/2006 [facility]-Cervical Cancer Screening 12/10/2011 [facility]-HPV/Cotest 12/10/2011 12/09/2006 CT Colonography 2017 Colonoscopy 2017 FIT-DNA 2017 FIT 2017 FOBT 2017 Sigmoidoscopy 2017 [facility]-Colorectal Cancer Screening 2017 [facility]-Pneumococcal Vaccine: 50 + Years (1 of 1 - PCV) 2022 [facility]-Zoster Vaccines (1 of 2) 2022 EPD-URLFS-29 Vaccine (2 - 20 25-26 season) 2025 12/20/2020 [facility]-Influenza Vaccine (#1) 2025 [facility]-DTaP,Tdap,and Td Vaccine s (2 - Td or Tdap) 08/06/2025 08/06/2015 HPV Vaccines Aged Out No longer eligi ble based on patient's age to complete this topic [facility]-HIB Vaccines Aged Out No longer e ligible based on patient's age to complete this topic [facility]-Hepatitis A Vaccines Aged Out No longer eligible based on patient's age to complete this topic [facility]-IPV Vaccines Aged Out No longer e ligible based on patient's age to complete this topic [facility]-Rotavirus Vaccines Aged Out No lo nger eligible based on patient's age to complete this topic Procedures Procedure Name Priority Date/Time Associated Diagnosis Comments CT ANGIO CARDIAC CORONARY ARTERIES Routine 04/30/2025 12:00 AM EDT Ischemia CYTO DATA CONVERSION Routine 12/09/2006 12:00 AM EDT from Last 3 Months or Most Recently Relevant to Health Maintenance Results * CT Angio Cardiac Coronary Arteries [...] Data Image Acquisition: [facility] [place] [facility] 04[facility]30/2025, and received/interpreted at [facility] on 05/02/2025. A 128-slice MDCT scanner ([employer] TVa View) was used for data acquisition. A [...] was reviewed interactively on an advanced workstation ([employer]) capable of 2 and 3 dimensional displays [...] Data Image Acquisition: Images were acquired at [facility] [place] on04/30/2025, and received/interpreted at [facility] on05/02/2025. A 128-slice MDCT scanner ([employer] [facility] View) was used fordata acquisition. A non-contrast [...] Data wasreviewed interactively on an advanced workstation ([employer]) capable of 2and 3 dimensional displays in [...] Ramon Espinosa MD on 05/02/2025 2:59 PM us Keisha Zee ELEMENTARY SCHOOL READING TEACHER IMG CT PROCEDURES Kaitlin l Result * Cytology (12/09/2006 12:00 AM EDT) 12/09/2006 12/09/2006 2:2 0 PM EDT Narrative SUNQUEST - 12/12/2006 9:30 AM EDT [facility] MR #: [id number] [facility] [place], [place] [address] 1970 (Age: 36) FU Collect Date: 12/09/2006 00:00 Receipt Date: 12/09/2006 14:20 Page 1 DEPARTMENT OF PATHOLOGY AND LABORATORY MEDICINE CYTOPATHOLOGY REPORT Email: [email or web address] ATTENDING MD/Practitioner: Joel Fulton MD Service: Location: 1CDU OTHER MD(S): Devang Sanchez MD Reported: 12/12/2006 09:30 Collected: 12/09/2006 00:00 DIAGNOSIS A. CSF: NO EVIDENCE OF MALIGNANCY. RARE MONONUCLEAR CELLS. Electronically Signed Out COLIN Rosen([facility]) Mercedes Garrett MD PROCEDURES/ADDENDA GROSS DESCRIPTION: 1 ml's of clear fluid. CLINICAL INFORMATION: CLINICAL DIAGNOSIS Headache SPECIMEN DESCRIPTION: A: CSF THIN PREP PROCESS CELLULAR ENHANCEMENT ICD: 784.0 HEADACHE F: A; 28904 SNOMED CODES: A; [id number] A resident has participated in this service. A pathologist has performed and is responsible for the reported pathologic evaluation. Tejinder Fulton DO LAB PATHOLOGY ORDERABLES Final Result SUNQUEST from Last 3 Months or Most Recently Relevant to Health Maintenance Insurance [employer]
--- OUTSIDE RECORDS SUMMARY | 2025-06-10 13:43 | XMS_ITS | Encounter Summary ---
Author Organization [facility] Address [address] [place] [address] Care Team Providers Care Health Unit Clerk Name Role Phone Mehdi Gross MD Primary Care Provider + Reason for Visit * Reason Onset Date Comments Med Refill 02/15/2025 Encounter Details Date Type Department Care Team ([facility] Contact Info) Description 02/15/2025 Refill [facility] [address] [place] [address] Mehdi Gross MD [address] [place] [address] Degenerative disc disease, lumbar; Other [...] Upcoming Encounters Date Type Department Care Team ([facility] Contact Info) Description 06/18/2025 8:00 AM EDT Office Visit [facility] [address] [place] [address] Mehdi Gross MD [address] [place] [address] 07/18/2025 8:00 AM EDT Appointment [facility] [address] [place] [address] documented as of this encounter Visit Diagnoses Diagnosis Degenerative disc disease, lumbar Other osteoarthritis of spine, cervical region documented in this encounter Additional Health Concerns Assessment Noted Time PHQ-2 Depression Total Score: 1 12/05/19 24 8:18 AM EDT documented as of this encounter Care Teams Health Unit Clerk Relationship Specialty Start Date End Date Mehdi Gross MD PCP - General Family Medicine 04/21/17 documented as of this encounter
--- OUTSIDE RECORDS SUMMARY | 2025-06-10 13:43 | XMS_ITS | Clinical Summary ---
Author Organization [facility] Address [address] [place] [address] Care Team Providers Care Dermatology Teacher Name Role Phone Mehdi Gross MD Primary Care Provider + Allergies Active Allergy Reactions Criticality Noted Date Comments Bee Venom Anaphylaxis High 05/03/2021 Metronidazole Swelling 02/17/2022 Morphine Nausea And Vomiting 02/17/2022 Nsaids Anaphylaxis High 02/17/2022 Peanut (Diagnostic) Unknown - Low Severity 04/19 Oxycodone-Acetaminophen Nausea And Vomiting 09/2021 Shellfish Allergy Unknown - Low Severity 2020 [place] Unknown - Low Severity 05/03/2021 Gatifloxacin Headache 02/17/2022 Medications Lactobacillus (PROBIOTIC ACIDOPHILUS PO) Take by mouth. Active Docusate Sodium (COLACE PO) Take by mouth. Act art dicyclomine (BENTYL) 20 MG tablet Take 1 tablet by mouth 4 (Four) Times a Day As Needed (intestinal cramping). 360 tablet 3 024 Active Additional Information Patient not taking.Reported on 12/20/2024 albuterol sulfate HFA 108 (90 Base) MCG/ACT inhaler Inhale 2 puffs Every 4 (Four) Hours As Needed for Wheezing. 18 g 5 025 Active Triamcinolone Acetonide (NASACORT) 55 MCG/ACT nasal inhalerIndication s:Non-seasonal allergic rhinitis due to pollen Administer 2 sprays into the nostril(s) as directed by provider Daily. 16.5 g 11 025 Active Entyvio Pen 108 MG/0.68ML solution auto-injector 025 Active loratadine (Claritin) 10 MG tablet Take 1 tablet by mouth Daily. Active bisoprolol (ZEBeta) 5 MG tabletIndications :Coronary artery disease involving kar[place] coronary artery of kar[place] heart without angina pectoris Take 0.5 tablets by mouth Daily. 90 tablet 3 025 Active methocarbamol (ROBAXIN) 500 MG tabletIndications :Degenerative disc disease, lumbar Take 1 tablet by mouth 3 (Three) Times a Day As Needed for Muscle Spasms. 90 tablet 5 025 Active ALPRAZolam (XANAX) 0.25 MG tabletIndications :Anxiety Take 1 tablet by mouth every 6 (six) to 8 (eight) hours as needed for Anxiety. 120 tablet 025 Active gabapentin (NEURONTIN) 100 MG capsuleIndication s:Degenerative disc disease, lumbar Take 1 capsule by mouth 2 (Two) Times a Day. 60 capsule 5 025 Active HYDROcodone-aceta minophen (NORCO) 10-325 MG per tabletIndications :Degenerative disc disease, lumbar,Other osteoarthritis of spine, cervical region Take 1 tablet by mouth every 6 (six) to 8 (eight) hours as needed for Severe Pain. 100 tablet 025 Active clopidogrel (PLAVIX) 75 MG tablet TAKE 1 TABLET BY MOUTH DAILY 90 tablet 3 025 Active omeprazole (priLOSEC) 20 MG capsuleIndication s:Gastroesophagea l reflux disease without esophagitis TAKE 1 CAPSULE BY MOUTH TWICE DAILY 180 capsule 3 025 Active clopidogrel (PLAVIX) 75 MG tablet Take 1 tablet by mouth Daily. 90 tablet 3 024 2024 Discontinued omeprazole (priLOSEC) 20 MG capsuleIndication s:Gastroesophagea l reflux disease without esophagitis Take 1 capsule by mouth 2 (Two) Times a Day. 180 capsule 3 024 2024 Discontinued gabapentin (NEURONTIN) 100 MG capsuleIndication s:Degenerative disc disease, lumbar Take 1 capsule by mouth 2 (Two) Times a Day. 60 capsule 5 025 2024 Discontinued(R eorder) HYDROcodone-aceta minophen (NORCO) 10-325 MG per tabletIndications :Degenerative disc disease, lumbar,Other osteoarthritis of spine, cervical region Take 1 tablet by mouth every 6 (six) to 8 (eight) hours as needed for Severe Pain. 100 tablet 025 2024 Discontinued(R eorder) Encounters Date Type Department Care Team Description 06/04/2025 Refill [facility] [address] [place] [address] Mehdi Gross MD Gastroesophageal reflux disease without esophagitis 05/22/2025 Refill [facility] [address] [place] [address] Mehdi Gross MD Degenerative disc disease, lumbar; Other osteoarthritis of spine, cervical region 04/29/2025 Refill [facility] [address] [facility] [address] Mehdi Gross MD Degenerative disc disease, lumbar; Degenerative disc disease, lumbar; Anxiety; Other osteoarthritis of spine, cervical region 03/19/2025 Refill [facility] [address] [place] [address] Mehdi Gross MD Degenerative disc disease, lumbar; Degenerative disc disease, lumbar; Anxiety; Other osteoarthritis of spine, cervical region from [...] Description 06/18/2025 8:00 AM EDT Office Visit [facility] [address] [place] [address] Mehdi Gross MD [address] [place] [address] 07/18/2025 8:00 AM EDT Appointment [facility] [address] [address] Health Maintenance Due Date Last Done Comments Annual Gynecologic Pelvic an d Breast Exam 1970 PAP SMEAR 1993 COLOGUARD 2017 COLON CANCER SCREENING 5 YEA R SIGMOIDOSCOPY [address] COLONOGRAPHY 2017 FECAL OCCULT BLOOD TEST 2017 FIT Testing (1 year) 2017 HEPATITIS C SCREENING 07/27/2021 Pneumococcal Vaccine 50+ (1 of 1 - PCV) 2022 ZOSTER VACCINE (1 of 2) 2022 INFLUENZA VACCINE 04/19/2025 TDAP/TD VACCINES (2 - Td or Tdap) 08/06/2025 015 ANNUAL PHYSICAL 12/20/2025 12/20/2024 MAMMOGRAM 07/19/2026 07/19/2024, 06/20, 07/07/2023, Additional history exists COLONOSCOPY 02/09/2032 02/08/2022 COLORECTAL CANCER SCREENING 02/09/2032 Procedures Procedure Name Priority Date/Time Associated Diagnosis Comments SCANNED - IMAGING 06/06/2025 SCANNED - IMAGING 06/06/2025 SCANNED - LABS 04/30/2025 SCANNED - IMAGING 04/30/2025 SCANNED NUCLEAR MED 03/28/2025 SCANNED - LABS 03/11/2025 SCANNED - LABS 03/11/2025 MAMMO SCREENING DIGITAL TOMOSYNTHESIS BILATERAL W CAD Routine 07/17/2024 10:52 AM EDT Screening mammogram for breast cancer from Last 3 Months or Most Recently Relevant to Health Maintenance Results * IMAGING SCANNED (06/06/2025) Only the most recent of3 resultswithin the time period is included. Anatomical Region Laterality Modality Radiographic Ce ging Mehdi Gross MD [facility] DIAGNOSTIC IMAGING O RDERABLES Final Result * LABS SCANNED (04/30/2025) Only the most recent of3 resultswithin the time period is included. Mehdi Gross MD LAB BLOOD ORDERABLES Fin al Result * NUCLEAR MED SCANNED (03/28/2025) Anatomical Region Laterality Modality Nuclear Medicine Mehdi Gross MD [facility] NM ORDERABLES Final Result * Mammo Screening Digital Tomosynthesis Bilateral [...] or areas of architectural distortion are present. us Mehdi HUYNH MAMMOGRAPHY ORDERABL ES Final Result from Last 3 Months or Most Recently Relevant to Health Maintenance Insurance [facility] PPO Care Teams Dermatology Teacher Relationship Specialty Start Date End Date Mehdi Gross MD PCP - General Family Medicine 04/21/17
--- OUTSIDE RECORDS SUMMARY | 2025-06-10 13:43 | XMS_ITS | Encounter Summary ---
Author Organization [facility] Address [address] [place] [address] Care Team Providers Care Continuous Improvement Manager Name Role Phone Mehdi Gross MD Primary Care Provider + Reason for Visit * Reason Onset Date Comments Med Refill 05/22/2025 Encounter Details Date Type Department Care Team ([facility] Contact Info) Description 05/22/2025 Refill [facility] [address] [place] [address] Mehdi Gross MD [address] [place] [address] Degenerative disc disease, lumbar; Other [...] Upcoming Encounters Date Type Department Care Team ([facility] Contact Info) Description 06/18/2025 8:00 AM EDT Office Visit [facility] [address] [place] [address] Mehdi Gross MD [address] [place] [address] 07/18/2025 8:00 AM EDT Appointment [facility] [address] [place] [address] documented as of this encounter Visit Diagnoses Diagnosis Degenerative disc disease, lumbar Other osteoarthritis of spine, cervical region documented in this encounter Additional Health Concerns Assessment Noted Time PHQ-2 Depression Total Score: 1 12/05/19 24 8:18 AM EDT documented as of this encounter Care Teams Continuous Improvement Manager Relationship Specialty Start Date End Date Mehdi Gross MD PCP - General Family Medicine 04/21/17 documented as of this encounter
--- OUTSIDE RECORDS SUMMARY | 2025-06-10 13:43 | XMS_ITS | Encounter Summary ---
Author Organization [facility] Address [address] [place] [id number] Care Team Providers Care Vendor Relationship Manager Name Role Phone Mehdi Gross MD Primary Care Provider + Reason for Visit * Reason Comments Med Refill Encounter Details Date Type Department Care Team (Late st Contact Info) Description 06/04/2025 Refill [facility] [address] [place] [address] Mehdi Gross MD [address] [place] [address] Gastroesophageal reflux disease without esophagitis Social History Tobacco Use Types Packs/Day Years [...] Description 06/18/2025 8:00 AM EDT Office Visit [facility] [address] [place] [address] Mehdi Gross MD [address] [place] [id number] 07/18/2025 8:00 AM EDT Appointment [facility] [address] [place] [address] documented as of this encounter Visit Diagnoses Diagnosis Gastroesophageal reflux disease without esophagitis Esophageal reflux documented in this encounter Additional Health Concerns Assessment Noted Time PHQ-2 Depression Total Score: 1 12/05/19 24 8:18 AM EDT documented as of this encounter Care Teams Vendor Relationship Manager Relationship Specialty Start Date End Date Mehdi Gross MD PCP - General Family Medicine 04/21/17 documented as of this encounter
--- OUTSIDE RECORDS SUMMARY | 2025-06-10 13:43 | XMS_ITS | Encounter Summary ---
Author Organization [facility] Address [address] [place] [id number] Care Team Providers Care Dean Of Students Name Role Phone Mehdi Gross MD Primary Care Provider + Reason for Visit * Reason Comments Med Refill Encounter Details Date Type Department Care Team (Late st Contact Info) Description 11/21/2023 Refill [facility] [address] [place] [address] Mehdi Gross MD [address] [place] [address] Degenerative disc disease, lumbar; Degenerative [...] Description 06/18/2025 8:00 AM EDT Office Visit [facility] [address] [place] [address] Mehdi Gross MD [address] [place] [address] 07/18/2025 8:00 AM EDT Appointment [facility] [address] [place] [address] documented as of this encounter Visit Diagnoses Diagnosis Degenerative disc disease, lumbar Other osteoarthritis of spine, cervical region documented in this encounter Additional Health Concerns Assessment Noted Time PHQ-2 Depression Total Score: 1 04/18/20 23 8:15 AM EDT documented as of this encounter Care Teams Dean Of Students Relationship Specialty Start Date End Date Mehdi Gross MD PCP - General Family Medicine 04/21/17 documented as of this encounter
== END 2025-06-10 23:59 | disposition home or self-care (01) ==
LOC: RAD 13:41
PROVIDERS: PCP Family Medicine; Visit Provider Family Medicine
DX: M47.814 Spondylosis without myelopathy or radiculopathy, thoracic region (principal); M47.817 Spondylosis without myelopathy or radiculopathy, lumbosacral region; M41.9 Scoliosis, unspecified; Z98.890 Other specified postprocedural states
CPT/HCPCS: 72083